=== PATIENT | female | born 1985 | race Caucasian/White ===

== ENCOUNTER 2019-09-02 17:19 | Emergency (ER) | payer OTHER, MEDICARE, SELFPAY ==
--- NOTE | ~2019-09-02 | XR_ITS ---
EXAMINATION: XR chest 2V EXAM DATE: 09/02/2019 17:54 INDICATION: Palpitations, history of atrial fibrillation. Syncope. Flu. Symptoms 1 week. TECHNIQUE: Frontal and lateral projections of the chest obtained and reviewed. Comparison is made to prior examination from 08/14/2017. FINDINGS: The lungs are clear. There are no pleural effusions. The cardiomediastinal silhouette is within normal limits. There is no pneumothorax suspected. The bones and soft tissues are unremarkab le. IMPRESSION: No acute cardiopulmonary findings. Reviewed, dictated and finalized at location A. INVESTIGATOR
--- NOTE | 2019-09-02 17:22 | ECG_ITS ---
Measurements Intervals [place] Rate: 94 P: 86 ND: 127 QRS: 53 QRSD: 81 T: 3 QT: 367 QTc: 459 Interpretive Statements SINUS RHYTHM EARLY PRECORDIAL R/S TRANSITION NONSPECIFIC ST & T-WAVE ABNORMALITY- DIFFUSE LEADS BASELINE ARTIFACT- I, II, III, AVR, AVL, AVF BORDERLINE ECG Electronically Signed On 09-03-2019 8:43:41 FLOATLIGHT LOADING SUPERVISOR by Chente Perez D.O.
[2019-09-02 17:32] VITALS: BP 130/94; PULSE 96; RESP 18; TEMP 37; O2SAT 100
[2019-09-02 17:48] LABS: Basophils Percent Auto 0.2 % (0.2-1.2); Eosinophils Absolute Auto 0.2 K/mm3 (0-0.3); Eosinophils Percent Auto 2.5 % (0-4.4); Hematocrit 37.1 % (37.0-47.0); Hemoglobin 11.2 g/dL (12.0-15.0); Immature Granulocyte Absolute 0.03 K/mm3 (0.00-0.031); Immature Granulocyte Percent A 0.3 % (0-0.5); Immature Platelet Fraction Pct 3.5 % (0.9-11.2); Lymphocytes Absolute Auto 1.67 K/mm3 (0.9-3.2); Lymphocytes Percent Auto 17.8 % (18.3-44.2); Mean Corpuscular HGB Conc 30.2 g/dl (32-36); Mean Corpuscular Volume 59.6 fl (80-100); Monocytes Absolute Auto 0.5 K/mm3 (0.1-0.6); Monocytes Percent Auto 5.3 % (2.6-8.5); Neutrophils Absolute Auto 6.9 K/mm3 (1.3-6.7); Neutrophils Percent Auto 73.9 % (45.5-73.1); Platelet Count Result 313 k/mm3 (150-375); Red Blood Count 6.22 M/mm3 (4.2-5.4); Red Cell Distribution Width 17.7 % (11.5-14.5); White Blood Count 9.4 K/mm3 (4.5-10.0)
[2019-09-02 18:01] LABS: Alanine Aminotransferase 18 U/L (4-35); Albumin Level 5.3 g/dL (3.5-5.1); Alkaline Phosphatase 56 U/L (38-126); Aspartate Amino Transferase 24 U/L (14-36); Bilirubin,Total 0.6 mg/dL (0.2-1.3); Blood Urea Nitrogen 8 mg/dL (7-17); Calcium 10.1 mg/dL (8.4-10.2); Carbon Dioxide 27 mmol/L (22-30); Chloride 100 mmol/L (98-107); Estimated CRCL calculation 83 ml/min; Estimated Glomerular Filt Rate > 60; Glucose 102 mg/dL (65-105); Potassium 3.4 mmol/L (3.4-5.0); Sodium 142 mmol/L (137-145)
[2019-09-02 20:08] VITALS: BP 130/88; PULSE 88; RESP 18; O2SAT 100
--- NOTE | 2019-09-02 20:27 | ED.WEAKNESS ---
HPI - Weakness General Chief complaint: Weakness Stated complaint: right breast infection Time Seen by Provider: 09/02/19 20:06 Source: patient and RN notes reviewed Mode of arrival: ambulatory Limitations: no limitations History of Present Illness HPI Narrative: Pt is a 33 y/o female presenting to the ED c/o rash. Pt reports she has developed several areas of erythema over her rt breast, buttocks, BLE, and abdomen. diagnosed with influenza B 11 days ago, 7 days of fever not gotten better frequently gets folliculitis after getting in a hot tub, got in one a few days ago erythema over breast, buttocks, and legs no CP near-syncope when cough Hx of A Fib and PE Related Data Allergies Allergy/AdvReac Type Severity Reaction Status Date / Time nitrofurantoin Allergy Intermediate Anaphylactic Verified 08/14/17 16:42 Shock ciprofloxacin Allergy Unknown HIVES/DIFFICULTY Verified 03/10/16 08:07 BREATHING ketorolac AdvReac Intermediate Dizziness Unverified 08/14/17 17:08 [facility] Social History Social History Gender identity (if verbalized by the patient): Female Course Vital Signs Vital signs: Vital Signs Temperature 37.0 C 09/02/19 17:32 Pulse Rate 96 09/02/19 17:32 Respiratory Rate 18 09/02/19 17:32 Blood Pressure 130/94 H 09/02/19 17:32 Pulse Oximetry 100 09/02/19 17:32 Temperature 37.0 C 09/02/19 17:32 Pulse Rate 88 09/02/19 20:08 Respiratory Rate 18 09/02/19 20:08 Blood Pressure 130/88 09/02/19 20:08 Pulse Oximetry 100 09/02/19 20:08 MDM - Weakness Lab Data Result diagrams: 09/02/19 17:40 09/02/19 17:40 Labs: Lab Results 09/02/19 09/02/19 Range/Units 17:40 17:40 WBC 9.4 (4.5-10.0) K/mm3 RBC 6.22 H (4.2-5.4) M/mm3 Hgb 11.2 L (12.0-15.0) g/dL Hct 37.1 (37.0-47.0) % MCV 59.6 L (80-100) fl MCH 18.0 L (26-34) pg MCHC 30.2 L (32-36) g/dl RDW 17.7 H (11.5-14.5) % Plt Count 313 (150-375) k/mm3 MPV TNP Immature Gran % (Auto) 0.3 (0-0.5) % Neut % (Auto) 73.9 H (45.5-73.1) % Lymph % (Auto) 17.8 L (18.3-44.2) % [place] % (Auto) 5.3 (2.6-8.5) % Eos % (Auto) 2.5 (0-4.4) % Baso % (Auto) 0.2 (0.2-1.2) % Lymph # (Auto) 1.67 (0.9-3.2) K/mm3 [place] # (Auto) 0.5 (0.1-0.6) K/mm3 Eos # (Auto) 0.2 (0-0.3) K/mm3 Baso # (Auto) 0.0 (0.0-0.1) K/mm3 Abs Immat Gran (auto) 0.03 (0.00-0.031) K/mm3 Absolute Neuts (auto) 6.9 H (1.3-6.7) K/mm3 Absolute Nucleated RBC 0.0 (0.0-0.012) K/mm3 Nucleated RBC % 0.0 (0.0-0.2) % % Immature Plt Fraction 3.5 (0.9-11.2) % Sodium 142 (137-145) mmol/L Potassium 3.4 (3.4-5.0) mmol/L Chloride 100 (98-107) mmol/L Carbon Dioxide 27 (22-30) mmol/L BUN 8 (7-17) mg/dL Creatinine 0.70 (0.7-1.0) mg/dL Estim Creat Clear Calc 83 ml/min Estimated GFR > 60 (59 - ) Glucose 102 (65-105) mg/dL Calcium 10.1 (8.4-10.2) mg/dL Total Bilirubin 0.6 (0.2-1.3) mg/dL AST 24 (14-36) U/L ALT 18 (4-35) U/L Alkaline Phosphatase 56 (38-126) U/L Total Protein 9.0 H (6.3-8.2) g/dL Albumin 5.3 H (3.5-5.1) g/dL Influenza A Screen Negative Reference Range: Negative Influenza B Screen Negative Reference Range: Negative
--- NOTE | 2019-09-02 20:50 | ED.SKABFB ---
HPI - Skin/Abscess/Foreign Bdy General Chief complaint: Weakness Stated complaint: right breast infection Time Seen by Provider: 09/02/19 20:06 Source: patient and RN notes reviewed Mode of arrival: ambulatory Limitations: no limitations History of Present Illness HPI narrative: Pt is a 33 y/o female presenting to the ED c/o rash. Pt reports she has developed several areas of erythema over her rt breast, buttocks, BLE, and abdomen. Pt states she was in a hot tub a few days ago and notes she has frequently developed Folliculitis after being in hot tubs previously. Pt also notes she was diagnosed with Influenza B 11 days ago that has not alleviated. Pt reports a subjective fever for 7 days, weakness, near-syncope, and cough, but denies CP. Pt states she has Hx's of A Fib and PE. Onset (ago): unknown Location: chest (Rt breast), buttocks, LLE and RLE Associated symptoms: fever (Subjective), cough and other (Weakness; near-syncope) Related Data Allergies Allergy/AdvReac Type Severity Reaction Status Date / Time nitrofurantoin Allergy Intermediate Anaphylactic Verified 08/14/17 16:42 Shock ciprofloxacin Allergy Unknown HIVES/DIFFICULTY Verified 03/10/16 08:07 BREATHING ketorolac AdvReac Intermediate Dizziness Unverified 08/14/17 17:08 Review of Systems Review of Systems: All systems reviewed & are unremarkable except as noted in HPI and below Constitutional: Constitutional: Reports fever(s) (Subjective) Cardiovascular: Cardiovascular: Denies chest pain Respiratory: Respiratory: Reports cough Integumentary/Breasts: Skin/Breast: Reports erythema (Rt breast; buttocks; BLE; Abdomen) Neurologic: Reports syncope (Near) and Reports weakness PMFSH Past Medical History Medical History A-fib Anemia CAD (coronary artery disease) Pulmonary embolism Syndrome X, cardiac Thalassemia UTI (urinary tract infection) Wrist fracture, right Surgical History Surgical History H/O cardiac radiofrequency ablation Social History Social History Smoking status: Unknown if ever smoked Gender identity (if verbalized by the patient): Female Exam Narrative: Exam Narrative: GENERAL: Well-appearing, well-nourished, and in no acute distress. HEAD: Normocephalic, atraumatic. EYES: PERRLA and EOMI. ENT: Nares clear, Mucous membranes moist. NECK: Supple. CHEST: Clear to auscultation. No respiratory distress. HEART: Regular rate and rhythm. No murmur heard. Normal peripheral pulses. ABDOMEN: Soft, non tender, nondistended, normal active bowel sounds. EXTREMITIES: Normal range of motion. No edema. SKIN: Warm, has diffuse erythematous rash and around the rt breast. NEURO: No focal deficits. Alert and oriented x3. PSYCH: Normal mood and affect. Course Course Emergency Course: infprmed pt about her lab work, will start on antibiotic .advised her to follow with her PMD. Vital Signs Vital signs: Vital Signs Temperature 37.0 C 09/02/19 17:32 Pulse Rate 96 09/02/19 17:32 Respiratory Rate 18 09/02/19 17:32 Blood Pressure 130/94 H 09/02/19 17:32 Pulse Oximetry 100 09/02/19 17:32 Temperature 37.0 C 09/02/19 17:32 Pulse Rate 88 09/02/19 20:08 Respiratory Rate 18 09/02/19 20:08 Blood Pressure 130/88 09/02/19 20:08 Pulse Oximetry 100 09/02/19 20:08 MDM - Skin/Abscess/Foreign Bdy Lab Data Result diagrams: 09/02/19 17:40 09/02/19 17:40 Labs: Lab Results 09/02/19 09/02/19 Range/Units 17:40 17:40 WBC 9.4 (4.5-10.0) K/mm3 RBC 6.22 H (4.2-5.4) M/mm3 Hgb 11.2 L (12.0-15.0) g/dL Hct 37.1 (37.0-47.0) % MCV 59.6 L (80-100) fl MCH 18.0 L (26-34) pg MCHC 30.2 L (32-36) g/dl RDW 17.7 H (11.5-14.5) % Plt Count 313 (150-375) k/mm3 MPV TNP Immature Gran % (Auto) 0.3 (0-0.5) % Neut % (Auto) 73.9 H
[2019-09-02 21:53] VITALS: BP 125/80; PULSE 76; RESP 14; O2SAT 100
== END 2019-09-02 21:57 | disposition home or self-care (01) ==
PROVIDERS: Emergency Medicine; Emergency Provider Family Medicine
DX: L73.9 Follicular disorder, unspecified (principal); I48.91 Unspecified atrial fibrillation; D64.9 Anemia, unspecified; Z86.711 Personal history of pulmonary embolism; Z87.440 Personal history of urinary (tract) infections; D56.9 Thalassemia, unspecified; I25.119 Atherosclerotic heart disease of native coronary artery with unspecified angina pectoris
CPT/HCPCS: 36415; 71046; 80053; 85025; 85055; 87804; 93005; 99283

== ENCOUNTER → 2020-04-12 15:31 | Outpatient (CLI) | payer OTHER, MEDICARE, SELFPAY ==
--- NOTE | ~2020-04-12 | US_ITS ---
EXAMINATION: US thyroid DATE: 04/12/2020 16:14 INDICATION: Left thyroid nodule TECHNIQUE: Multiple ultrasound images of the thyroid were obtained. COMPARISON: None. FINDINGS: The right thyroid lobe measures 4.2 x 1.3 x 1.3 cm. The left thyroid lobe measures 5.1 x 1.3 x 1.6 c m. 1.7 cm wider than tall mixed solid and cystic nodule with smooth margins, isoechoic solid compone nt without echogenic foci. (TI-RADS 2, not suspicious, no FNA recommended) at the inferior left thyro id. There is a second 4 mm wider than tall cystic nodule (TI-RADS 1, benign, no FNA recommended) in t he inferior right thyroid lobe. There is normal echotexture, echogenicity and vascular flow throughou t the thyroid gland. IMPRESSION: 1. A couple likely benign bilateral thyroid nodules the larger and higher grade a 1.7 cm TI RADS 2 no dule which requires no biopsy or further follow-up. Reviewed, dictated and finalized at location B. IMPRESSION: 1. A couple likely benign bilateral thyroid nodules the larger and higher grade a 1.7 cm TI RADS 2 nodule which requires no biopsy or further follow-up.
--- NOTE | ~2020-04-12 | US_ITS ---
EXAMINATION: US transvaginal EXAM DATE: 04/12/2020 16:14 INDICATION: Hydrosalpinx. TECHNIQUE: Pelvic transvaginal sonogram was performed. There are multiple grayscale and Doppler imag es available for interpretation. There is no prior study for comparison. FINDINGS: Uterus measures 7.7 x 3.8 x 5.9 cm, is retroverted and morphologically normal. Endometria l stripe measures 11 mm, within normal limits. There is small free pelvic fluid. Right adnexa: The ovary measures 5.3 x 1.9 x 2.1 cm and is morphologically normal. Ovarian vascular f low confirmed. Left adnexa: The ovary measures 3.6 x 1.6 x 1.4 cm and is morphologically normal. Ovarian vascular fl ow confirmed. Again there is serpiginous fluid filled region in the left adnexa most likely mild hydr osalpinx. IMPRESSION: 1. Persistent dilated fluid-filled left adnexal region area probably mild hydrosalpinx. Reviewed, dictated and finalized at location A. IMPRESSION: 1. Persistent dilated fluid-filled left adnexal region area probably mild hydr osalpinx.
== END ==
PROVIDERS: Visit Provider Nurse Practitioner
DX: N70.11 Chronic salpingitis (principal); E04.2 Nontoxic multinodular goiter
CPT/HCPCS: 76536; 76830

== ENCOUNTER → 2020-07-17 11:04 | Outpatient (CLI) | payer OTHER, MEDICARE, SELFPAY ==
--- NOTE | ~2020-07-17 | XR_ITS ---
EXAMINATION: XR foot RT min 3V DATE: 07/17/2020 11:39 INDICATION: Possible fracture with lateral right foot pain and bruising post injury TECHNIQUE: Dorsoplantar, two oblique and lateral views of the right foot were obtained. COMPARISON: None. FINDINGS: Alignment is normal. No fracture. Joint spaces are normal. Minimal enthesopathic ossification at the distal Achilles tendon. Soft tissues are unremarkable. IMPRESSION: 1. No acute osseous abnormality. Reviewed, dictated and finalized at location A. LAINT COORDINATOR
== END ==
PROVIDERS: PCP General Practice; Visit Provider General Practice
DX: M79.671 Pain in right foot (principal)
CPT/HCPCS: 73630

== ENCOUNTER → 2021-05-07 10:27 | Outpatient (CLI) | payer OTHER, MEDICARE, SELFPAY ==
--- NOTE | ~2021-05-07 | US_ITS ---
EXAMINATION: US transvaginal DATE: 05/07/2021 11:28 INDICATION: Hydrosalpinx Comparison:Ultrasound dated 04/12/2020 TECHNIQUE: Multiple endovaginal sonographic images of the pelvis performed. FINDINGS: The uterus measures 7.5 x 3.5 x 6 cm. Uterus is retroverted. There is an IUD in the endomet rium. The endometrial complex measures 5 mm. The right ovary measures 2.9 x 1.7 x 3.1 cm and the left ovary measures 3.5 x 1.4 x 2.8 cm. There ar e small follicles in each ovary. Normal doppler signal in both ovaries. There is persistent septated fluid in the left adnexa, nonspecific. This has a similar appearance com pared with prior examination. This may represent insinuated bowel or hydrosalpinx or a complicated fr ee fluid. There are no abnormal masses seen on either side. IMPRESSION: 1. Persistent septated fluid in the left adnexa, nonspecific. This has a similar appearance compared with prior examination. This may represent insinuated bowel, hydrosalpinx or a complicated free fluid . Consider correlation with contrast-enhanced CT. Reviewed, dictated and finalized at location A. ANALYTICS DEVELOPER IMPRESSION: 1. Persistent septated fluid in the left adnexa, nonspecific. This has a simila r appearance compared with prior examination. This may represent insinuated bow el, hydrosalpinx or a complicated free fluid. Consider correlation with contras t-enhanced CT.
--- NOTE | ~2021-05-07 | US_ITS ---
EXAMINATION: US thyroid EXAM DATE: 05/07/2021 11:28 INDICATION: Thyroid nodule. TECHNIQUE: Multiple grayscale and Doppler images of the thyroid were obtained (by a technologist who performed the scan) and subsequently reviewed. Individual nodules and recommendations may be reporte d in accordance with TI-RADS system as designated by the 2017 ACR White Paper TI-RADS committee. Comp tyler is made to prior examination from 04/12/2020. FINDINGS: Right there are lobe measures 4.5 x 1.2 x 1.5 cm, the left measuring 4.4 x 1.1 x 1.4 cm. There is mil dly diffusely heterogeneous thyroid parenchymal echogenicity, also with mild hypervascularity. Dimens ions are within normal size limits. There are scattered subcentimeter nodules, largest in the left thyroid lobe measuring 8 x 6 x 9 mm, s olid (2 points), hypoechoic (2 points), wider than tall, smooth well defined margin, without echogeni c foci, category TR4 for this nodule. No further follow-up is indicated at this time for a nodule of this size. Additionally, compared to prior study it has significantly decreased, probably with loss o f its previously seen cystic component (prior largest dimension was 1.7 cm). IMPRESSION: Benign thyroid nodules; return to clinical follow-up and if additional palpable abnormali ty develops a repeat ultrasound can be obtained. Reviewed, dictated and finalized at location A. TURE WINDER AUTOMOTIVE IMPRESSION: Benign thyroid nodules; return to clinical follow-up and if additio nal palpable abnormality develops a repeat ultrasound can be obtained.
== END ==
PROVIDERS: Visit Provider Nurse Practitioner
DX: E04.1 Nontoxic single thyroid nodule (principal)
CPT/HCPCS: 76536; 76830

== ENCOUNTER → 2021-08-12 15:33 | Outpatient (REF) | payer MEDICARE, MEDICAID, SELFPAY | LOC: ANHLAB 15:33 | PROVIDERS: PCP Student in an Organized Health Care Education/Training Program; Visit Provider Nurse Practitioner | DX: D22.72 Melanocytic nevi of left lower limb, including hip (principal) | CPT/HCPCS: 88305 ==

== ENCOUNTER 2022-03-04 12:58 | Emergency (ER) | payer MEDICARE, MEDICAID, SELFPAY ==
[2022-03-04 13:05] VITALS: BP 120/76; PULSE 101; RESP 12; TEMP 36.4; O2SAT 100
--- NOTE | 2022-03-04 13:28 | ED.SKABFB ---
HPI - Skin/Abscess/Foreign Bdy General Chief complaint: Skin/Abscess/Foreign Body Stated complaint: insect bite Time Seen by Provider: 03/04/22 13:28 Source: patient Mode of arrival: ambulatory Limitations: no limitations History of Present Illness HPI narrative: 36-year-old female presented for complaint of left posterior upper leg infection after mosquito bite 6 days ago. At the onset she endorses scratching it, did not states she noticed redness, swelling, and pus draining. She applied alcohol and mupirocin ointment due to her history of folliculitis. She states it continues to become more red and painful. Also reports complaints of sinus congestion and drainage over the last 4 days. She states her children have been sick. She has a history of cardiac arrhythmias and cannot tolerate Mucinex which she tried the other day. She denies shortness of breath, wheezing, vomiting, fevers or chills. Related Data Home Medications Medication Instructions Recorded Confirmed aspirin 81 mg tablet,delayed 81 mg PO DAILY 07/23/21 03/04/22 release (Adult Aspirin Regimen) fludrocortisone 0.1 mg tablet 0.1 mg PO DAILY 07/23/21 03/04/22 nitroglycerin 0.3 mg sublingual 0.3 mg sublingual Q5M PRN Chest 07/23/21 03/04/22 tablet Pain propafenone 325 mg 325 mg PO Q12H 07/23/21 03/04/22 capsule,extended release 12 hr (Rythmol SR) cyclobenzaprine 5 mg tablet 5 mg PO DAILY PRN muscle relaxer 03/04/22 03/04/22 phenazopyridine 100 mg tablet 100 mg PO TID PRN bladder 03/04/22 03/04/22 (Pyridium) discomfort Allergies Allergy/AdvReac Type Severity Reaction Status Date / Time nitrofurantoin Allergy Intermediate Anaphylactic Verified 03/04/22 13:06 Shock ciprofloxacin Allergy Unknown HIVES/DIFFICULTY Verified 03/04/22 13:06 BREATHING ketorolac AdvReac Intermediate Dizziness Verified 03/04/22 13:06 Review of Systems Review of Systems: CONSTITUTIONAL: Denies body aches, fever, chills, or sweats. EYES: Denies visual changes, redness, or discharge. ENT: reports rhinorrhea, congestion CARDIOVASCULAR: Denies chest pain, palpitations, or edema. RESPIRATORY: Denies dyspnea. GASTROINTESTINAL: Denies abdominal pain, nausea, vomiting, or diarrhea. SKIN: reports redness and drainage from insect bite MUSCULOSKELETAL: Denies back pain, joint pain, or myalgia. NEUROLOGIC: Denies headache, numbness, tingling, or weakness. [facility] Past Medical History Medical History (Updated 03/04/22 @ 13:39 by Estefany Molina APRN) A-fib Anemia CAD (coronary artery disease) Pulmonary embolism Syndrome X, cardiac Thalassemia UTI (urinary tract infection) Wrist fracture, right Surgical History Surgical History H/O cardiac radiofrequency ablation Social History Social History Smoking status: Never smoker Gender identity (if verbalized by the patient): Female Comments At time of signature, I have reviewed and agree with nursing past medical, surgical, social and family history unless otherwise noted. Please see nursing chart for further information. There is no relevant family history pertinent to the presenting complaint Exam Narrative: GENERAL: Well-appearing HEAD: Normocephalic, atraumatic. EYES: conjunctivae clear, and EOMI. ENT: Mucous membranes moist. Oropharynx without edema, erythema or lesions. CHEST: Clear to auscultation. HEART: Regular rate and rhythm. SKIN: Warm, dry. Left hamstring induration of approximately 5 cm diameter with open center, no active drainage, site is tender and firm NEURO: Alert and oriented x3. Course Course Emergency Course: Patient is aware of diagnosis, understands and agrees to treatment plan. Anticipatory guidance given. Patient agrees to follow-up as directed and is aware of reasons to seek care at the emergency department. Portions of this record may have been cr
== END 2022-03-04 13:44 | disposition home or self-care (01) ==
PROVIDERS: Emergency Provider Nurse Practitioner Family; PCP Student in an Organized Health Care Education/Training Program
DX: L02.416 Cutaneous abscess of left lower limb (principal); J30.9 Allergic rhinitis, unspecified; I48.91 Unspecified atrial fibrillation; Z86.711 Personal history of pulmonary embolism; Z79.82 Long term (current) use of aspirin; D56.9 Thalassemia, unspecified; D64.9 Anemia, unspecified; I25.110 Atherosclerotic heart disease of native coronary artery with unstable angina pectoris
CPT/HCPCS: 99213; G0463

== ENCOUNTER 2022-03-05 17:56 | Emergency (ER) | payer MEDICARE, MEDICAID, SELFPAY ==
[2022-03-05 18:05] VITALS: BP 139/93; PULSE 104; RESP 16; TEMP 37.2; O2SAT 100
--- NOTE | 2022-03-05 18:05 | ED.SKABFB ---
HPI - Skin/Abscess/Foreign Bdy General Chief complaint: Skin/Abscess/Foreign Body Stated complaint: INSECT BITE Time Seen by Provider: 03/05/22 18:07 Source: patient and RN notes reviewed Mode of arrival: ambulatory Limitations: no limitations History of Present Illness HPI narrative: 36-year-old female presents to the [facility] with complaints of worsening possible spider bite to the left posterior leg. Was seen yesterday, started on Keflex. Related Data Home Medications Medication Instructions Recorded Confirmed aspirin 81 mg tablet,delayed 81 mg PO DAILY 07/23/21 03/05/22 release (Adult Aspirin Regimen) fludrocortisone 0.1 mg tablet 0.1 mg PO DAILY 07/23/21 03/05/22 nitroglycerin 0.3 mg sublingual 0.3 mg sublingual Q5M PRN Chest 07/23/21 03/05/22 tablet Pain propafenone 325 mg 325 mg PO Q12H 07/23/21 03/05/22 capsule,extended release 12 hr (Rythmol SR) cyclobenzaprine 5 mg tablet 5 mg PO DAILY PRN muscle relaxer 03/04/22 03/05/22 Allergies Allergy/AdvReac Type Severity Reaction Status Date / Time nitrofurantoin Allergy Intermediate Anaphylactic Verified 03/05/22 18:08 Shock ciprofloxacin Allergy Unknown HIVES/DIFFICULTY Verified 03/05/22 18:08 BREATHING ketorolac AdvReac Intermediate Dizziness Verified 03/05/22 18:08 Review of Systems Review of Systems: All systems reviewed & are unremarkable except as noted in HPI and below Constitutional: Constitutional: Reports no additional constitutional complaints, Denies chills and Denies fever(s) Eyes: Eyes: Reports no additional eye complaints ENT: Reports system reviewed and no additional complaints, except as documented Cardiovascular: Cardiovascular: Reports no additional cardiovascular complaints Respiratory: Respiratory: Reports no additional respiratory complaints Gastrointestinal: Gastrointestinal: Reports no additional gastrointestinal complaints Musculoskeletal: Musculoskeletal: Reports no additional musculoskeletal complaints Integumentary/Breasts: Skin/Breast: Reports system reviewed and no additional complaints, except as docu Neurologic: Reports system reviewed and no additional complaints, except as documented Psychiatric: Psychiatric: Reports no additional psychiatric complaints Allergic/Immunologic: Allergic/Immunologic: Reports no additional allergic/immunologic complaints PMFSH Past Medical History Medical History (Updated 03/05/22 @ 20:17 by Rylie Bhatti APRN) A-fib Anemia CAD (coronary artery disease) Pulmonary embolism Syndrome X, cardiac Thalassemia UTI (urinary tract infection) Wrist fracture, right Surgical History Surgical History H/O cardiac radiofrequency ablation Social History Social History Smoking status: Never smoker Gender identity (if verbalized by the patient): Female Comments At the time of my signature, I reviewed and agree with the nursing past medical, surgical, social, and family history. There is no relevant family history pertinent to the patient complaint. Exam Const: General: healthy appearing, no acute distress and alert Nutritional Appearance: well nourished Orientation/consciousness: patient oriented x3 Limitations: no limitations HENMT: Head: normal to inspection Ears: external ears normal Eyes: General: appearance normal, both eyes and all related structures Pupils: Equal, round and reactive pupils present Neck: Neck: normal visual inspection, no lymphadenopathy and no meningeal signs Chest: Chest palpation & inspection: normal inspection of the chest Resp: Effort & Inspection: normal respiratory effort and no use of accessory muscles Auscultation: clear to auscultation bilaterally, no crackles, no rales, no rhonchi and no wheezes Cardio: Rate: regular rate Rhythm: regular rhythm GI: GI Palp: Yes Soft to palpation and No Tenderness to pa
[2022-03-05] MEDS: LIDOCAINE HCL 1% LOCAL INJ 2 ML AMPUL 10 ML INFILTRATE (18:28)
== END 2022-03-05 18:50 | disposition home or self-care (01) ==
PROVIDERS: Emergency Provider Nurse Practitioner
DX: L03.116 Cellulitis of left lower limb (principal); L02.416 Cutaneous abscess of left lower limb; I48.91 Unspecified atrial fibrillation; I25.10 Atherosclerotic heart disease of native coronary artery without angina pectoris; R01.1 Cardiac murmur, unspecified; D56.9 Thalassemia, unspecified; Z79.82 Long term (current) use of aspirin
CPT/HCPCS: 10060; 87070; 87075; 87147; 87181; 87186; 87205; 99213; G0463

== ENCOUNTER 2022-07-13 13:08 | Emergency (ER) | payer MEDICARE, MEDICAID, SELFPAY ==
--- NOTE | ~2022-07-13 | CT_ITS ---
EXAMINATION: CT brain wo con DATE: 07/13/2022 13:49 INDICATION: Syncope. Dizziness, lightheadedness. TECHNIQUE: Computed tomography (CT) of the head was performed without intravenous contrast. The mA wa s adjusted according to patient size. Iterative reconstruction technique was employed. Exam dose: 52 9.67 mGy-cm total exam DLP. COMPARISON: None FINDINGS: No intracranial mass lesion or hemorrhage or cerebrovascular accident. No midline shift or mass effect. Normal ventricular size. Normal flanagan-white matter differentiation. There is a small fluid level in the right maxillary sinus. There is soft tissue thickening of the rig ht ethmoid air cells. The mastoid air cells are normally developed and aerated. No fracture or bone destruction of the cranial vault. IMPRESSION: No intracranial abnormality Small fluid level, right maxillary sinus and soft tissue thickening of the right ethmoid air cells Reviewed, dictated and finalized at [facility]. Reviewed, dictated and finalized at location A. RANGER OPERATOR IMPRESSION: No intracranial abnormality Small fluid level, right maxillary sinus and soft tissue thickening of the righ t ethmoid air cells
--- NOTE | ~2022-07-13 | XR_ITS ---
XR chest 1V DATE: 07/13/2022 13:51 INDICATION: Chest pain radiating to left jaw. Syncopal episodes. TECHNIQUE: AP chest COMPARISON: 09/02/2019 PA and lateral chest FINDINGS: Normal heart size. No hilar or mediastinal enlargement. No pulmonary infiltrate or consolid ation, pleural effusion or pulmonary vascular congestion or pneumothorax. IMPRESSION: No active cardiopulmonary disease Reviewed, dictated and finalized at location A. CAL GLASS INSPECTOR
--- NOTE | 2022-07-13 13:21 | ECG_ITS ---
Measurements Intervals [place] Rate: 90 P: 76 [place]: 149 QRS: 47 QRSD: 65 T: 22 QT: 352 QTc: 432 Interpretive Statements SINUS RHYTHM BORDERLINE ST-T WAVE ABNORMALITY- DIFFUSE LEADS BASELINE ARTIFACT- I, II, III, AVR, AVL, AVF, V3-V6 BORDERLINE ECG COMPARED TO ECG 09/02/2019 17:31:24 NO SIGNIFICANT CHANGES Electronically Signed On 07-13-2022 14:05:58 FIBERGLASS BOAT FINISHER by Chente Perez D.O.
--- NOTE | 2022-07-13 13:24 | ED.SYNCOPE ---
HPI - Syncope General Chief Complaint: Syncope Stated Complaint: syncopal episode Time Seen by Provider: 07/13/22 13:12 Source: patient and RN notes reviewed Mode of arrival: ambulatory Limitations: no limitations History of Present Illness HPI narrative: This is a 36 year old female with history of cardiac x syndrome, POTS, atrial fibrillation, and PE who presents for evaluation of a syncopal episode. Patient states she has been ill with URI symptoms since Thursday. She has nasal congestion, and bilateral ear pain . She was started on antibiotics by her PCP on Thursday for her symptoms. She is also taking decongestants and antihistamines for her symptoms. Yesterday she reports continuing to feel unwell. She reports feeling of shortness of breath when sleeping at night. Today she was having some midsternal chest pain so she took one of her SL nitroglycerin. She reports chest pressure mostly when she lays flat. She was walking afterwards and felt like she was going to pass out. She reports her legs buckled and caused her to fall to her knees. She states she woke up on the ground. She denies headache, vomiting, or diarrhea. She states she has been drinking plenty of fluid but she has not been eating. She does not thinks she was in atrial fibrillation. Witnessed: No Related Data Home Medications Medication Instructions Recorded Confirmed aspirin 81 mg tablet,delayed 81 mg PO DAILY 07/23/21 03/05/22 release (Adult Aspirin Regimen) fludrocortisone 0.1 mg tablet 0.1 mg PO DAILY 07/23/21 03/05/22 nitroglycerin 0.3 mg sublingual 0.3 mg sublingual Q5M PRN Chest 07/23/21 03/05/22 tablet Pain propafenone 325 mg 325 mg PO Q12H 07/23/21 03/05/22 capsule,extended release 12 hr (Rythmol SR) cyclobenzaprine 5 mg tablet 5 mg PO DAILY PRN muscle relaxer 03/04/22 03/05/22 Allergies Allergy/AdvReac Type Severity Reaction Status Date / Time nitrofurantoin Allergy Intermediate Anaphylactic Verified 03/05/22 18:08 Shock ciprofloxacin Allergy Unknown HIVES/DIFFICULTY Verified 03/05/22 18:08 BREATHING ketorolac AdvReac Intermediate Dizziness Verified 03/05/22 18:08 Review of Systems Review of Systems: All systems reviewed & are unremarkable except as noted in HPI and below Constitutional: Constitutional: Reports fatigue and Reports weakness ENT: Reports nasal congestion Cardiovascular: Cardiovascular: Reports chest pain, Denies syncope, Denies rapid heart rate, Denies irregular heart rhythm, Denies leg edema and Reports dyspnea Respiratory: Respiratory: Denies chest congestion, Denies hemoptysis, Denies excessive phlegm production and Reports dyspnea Gastrointestinal: Gastrointestinal: Denies abdominal pain, Denies hematochezia, Denies diarrhea and Denies vomiting Genitourinary: Genitourinary: Denies hematuria and Denies dysuria Musculoskeletal: Musculoskeletal: Denies joint swelling, Denies loss of height and Denies muscle weakness Neurologic: Reports syncope, Denies focal weakness and Denies weakness [facility] Past Medical History Medical History (Updated 07/13/22 @ 18:42 by Alba Monique MD) A-fib Anemia CAD (coronary artery disease) Pulmonary embolism Syndrome X, cardiac Thalassemia UTI (urinary tract infection) Wrist fracture, right Surgical History Surgical History H/O cardiac radiofrequency ablation Social History Social History Smoking status: Never smoker Gender identity (if verbalized by the patient): Female Exam Const: General: alert Nutritional Appearance: thin Orientation/consciousness: patient oriented x3 HENMT: Head: normal to inspection Ears: external ears normal and TM's normal bilaterally Face and sinus: normal facial exam and sinuses nontender Mouth: Yes Normal oral and palatal mucosa present, Yes lip normal and Yes moist mucous membranes Throat: posterior oroph
[2022-07-13 13:33] VITALS: BP 139/87; PULSE 93; RESP 18; O2SAT 99
[2022-07-13 13:46] LABS: Basophils Percent Auto 0.4 % (0.2-1.2); Eosinophils Absolute Auto 0.1 K/mm3 (0-0.3); Hematocrit 35.4 % (37.0-47.0); Hemoglobin 11.1 g/dL (12.0-15.0); Immature Granulocyte Absolute 0.03 K/mm3 (0.00-0.031); Immature Granulocyte Percent A 0.4 % (0-0.5); Immature Platelet Fraction Pct 3.1 % (0.9-11.2); Lymphocytes Absolute Auto 1.87 K/mm3 (0.9-3.2); Lymphocytes Percent Auto 26.8 % (18.3-44.2); Mean Corpuscular HGB Conc 31.4 g/dl (32-36); Mean Corpuscular Hemoglobin 19.6 pg (26-34); Mean Corpuscular Volume 62.7 fl (80-100); Monocytes Absolute Auto 0.3 K/mm3 (0.1-0.6); Monocytes Percent Auto 4.4 % (2.6-8.5); Neutrophils Absolute Auto 4.6 K/mm3 (1.3-6.7); Platelet Count Result 334 k/mm3 (150-375); Red Blood Count 5.65 M/mm3 (4.2-5.4); Red Cell Distribution Width 16.9 % (11.5-14.5)
[2022-07-13 13:59] LABS: Anisocytosis 2+ (NORMAL); Hypochromasia 2+ (NORMAL); Microcytosis 1+ (NORMAL); Ovalocytes 1+ (NORMAL); Platelet Estimate Adequate (Adequate); Prothrombin Time 12.9 Seconds (11.1-14.7); Schistocytes None Seen (NORMAL)
[2022-07-13] MEDS: SODIUM CHLORIDE 0.9% IV 1,000 ML 999 ML IV CONT (13:59)
[2022-07-13 14:14] LABS: Alanine Aminotransferase 18 U/L (6-35); Albumin Level 5.5 g/dL (3.5-5.1); Alkaline Phosphatase 55 U/L (38-126); Anion Gap 10 mmol/L (8-16); Aspartate Amino Transferase 24 U/L (14-36); Bilirubin,Total 0.7 mg/dL (0.2-1.3); Blood Urea Nitrogen 13 mg/dL (7-17); Calcium 9.9 mg/dL (8.4-10.2); Carbon Dioxide 24 mmol/L (22-30); Chloride 102 mmol/L (98-107); Estimated Glomerular Filt Rate > 60; Glucose 102 mg/dL (65-110); Lipase 233 U/L (23-300); Potassium 3.7 mmol/L (3.4-5.0); Sodium 136 mmol/L (137-145)
[2022-07-13 14:15] LABS: Creatine Kinase 57 U/L (30-135); Magnesium 2.1 mg/dL (1.6-2.3)
[2022-07-13 14:19] LABS: Influenza A QL RT-PCR Negative (Negative); Influenza B QL RT-PCR Negative (Negative); SARS-CoV-2 RNA PCR Negative
[2022-07-13 14:21] LABS: NT Pro B Type Natriuretic Pept 76 pg/mL (19.9-100)
[2022-07-13 14:24] LABS: Troponin I < 0.012 ng/mL (0.000-0.034)
[2022-07-13 14:31] LABS: D Dimer < 0.27 ug/mL (<0.48)
[2022-07-13 14:35] VITALS: BP 122/82; PULSE 80
[2022-07-13 14:37] VITALS: BP 129/87; BP 129/91; PULSE 92; PULSE 96
[2022-07-13 15:30] VITALS: BP 117/78; PULSE 88; RESP 20; O2SAT 100
[2022-07-13 16:00] VITALS: BP 120/85; PULSE 86; RESP 15; O2SAT 98
[2022-07-13 16:30] VITALS: BP 117/80; PULSE 82; RESP 16; O2SAT 100
[2022-07-13 16:48] LABS: Troponin I < 0.012 ng/mL (0.000-0.034)
== END 2022-07-13 19:18 | disposition home or self-care (01) ==
PROVIDERS: Emergency Provider General Practice; PCP Student in an Organized Health Care Education/Training Program
DX: R55 Syncope and collapse (principal); J06.9 Acute upper respiratory infection, unspecified; Z20.822 Contact with and (suspected) exposure to COVID-19; I48.91 Unspecified atrial fibrillation; I25.118 Atherosclerotic heart disease of native coronary artery with other forms of angina pectoris; D64.9 Anemia, unspecified; G90.A Postural orthostatic tachycardia syndrome [POTS]; R06.02 Shortness of breath; Z87.440 Personal history of urinary (tract) infections; Z86.711 Personal history of pulmonary embolism; Z79.82 Long term (current) use of aspirin; R94.31 Abnormal electrocardiogram [ECG] [EKG]
CPT/HCPCS: 36415; 70450; 71045; 80053; 81025; 82550; 83690; 83735; 83880; 84484; 85025; 85055; 85380; 85610; 85730; 87636; 93005; 96361; 96365; 99284; J0131; J7030

== ENCOUNTER → 2022-08-20 11:07 | Outpatient (CLI) | payer MEDICARE, MEDICAID, SELFPAY ==
--- NOTE | ~2022-08-20 | US_ITS ---
EXAMINATION: US pelvic complete DATE: 08/20/2022 11:30 INDICATION: Pelvic and perineal pain Comparison:Ultrasound dated 05/07/2021 TECHNIQUE: Multiple transabdominal and endovaginal sonographic images of the pelvis performed. FINDINGS: The uterus measures 7.3 x 4.4 x 5 cm. There is an IUD present in the endometrium. The endom etrial complex measures 8 mm. The right ovary measures 3.1 x 1.5 x 3.5 cm and the left ovary measures 3.3 x 1.9 x 4.6 cm. There ar e small follicles in each ovary. Normal doppler signal in both ovaries. There is free fluid in the pelvis. There are no abnormal masses seen on either side. IMPRESSION: 1. Unremarkable pelvic ultrasound. Reviewed, dictated and finalized at location B. DYNAMICS ENGINEER
== END ==
PROVIDERS: PCP Student in an Organized Health Care Education/Training Program; Visit Provider Nurse Practitioner
DX: R10.2 Pelvic and perineal pain (principal)
CPT/HCPCS: 76856

== ENCOUNTER 2022-09-03 19:47 | Emergency (ER) | payer MEDICARE, MEDICAID, SELFPAY ==
--- NOTE | ~2022-09-03 | XR_ITS ---
EXAMINATION: XR chest 2V Exam Date/Time: 09/03/2022 20:22 MOBILE DEVICE ENGINEER HISTORY: cp CENTER OF CHEST 1 DAY, SOB, PT. STATES HX OF A-FIB Comparison: 07/13/2022. RESULT: Lines, tubes, and devices: None. Lungs and pleura: Clear. Cardiomediastinal silhouette: Stable. Other: No acute osseous or upper abdominal finding. IMPRESSION: No acute cardiopulmonary process. Reviewed, dictated and finalized at location K. LE DEVICE ENGINEER
--- NOTE | 2022-09-03 19:49 | ECG_ITS ---
Measurements Intervals [place] Rate: 89 P: 84 SC: 123 QRS: 64 QRSD: 78 T: 56 QT: 357 QTc: 435 Interpretive Statements SINUS RHYTHM NONSPECIFIC ST & T-WAVE ABNORMALITY- ANTEROLAT/INF LEADS BORDERLINE ECG COMPARED TO ECG 07/13/2022 13:36:46 NO SIGNIFICANT CHANGES Electronically Signed On 09-04-2022 6:34:54 DATA SME by Chente Perez D.O.
[2022-09-03 19:56] VITALS: BP 135/87; PULSE 90; RESP 18; O2SAT 100
[2022-09-03 20:14] LABS: Hematocrit 35.6 % (37.0-47.0); Immature Platelet Fraction Pct 3.9 % (0.9-11.2); Mean Corpuscular HGB Conc 30.9 g/dl (32-36); Mean Corpuscular Hemoglobin 19.6 pg (26-34); Mean Corpuscular Volume 63.6 fl (80-100); Platelet Count Result 303 k/mm3 (150-375); Red Cell Distribution Width 15.2 % (11.5-14.5); White Blood Count 6.8 K/mm3 (4.5-10.0)
[2022-09-03 20:23] LABS: Prothrombin Time 13.1 Seconds (11.1-14.7)
[2022-09-03 20:24] LABS: Partial Thromboplastin Time 28.1 SECONDS (22.3-36.8)
[2022-09-03 20:26] LABS: Alanine Aminotransferase 16 U/L (6-35); Albumin Level 4.9 g/dL (3.5-5.1); Alkaline Phosphatase 49 U/L (38-126); Anion Gap 7 mmol/L (8-16); Aspartate Amino Transferase 23 U/L (14-36); Bilirubin,Total 0.6 mg/dL (0.2-1.3); Blood Urea Nitrogen 7 mg/dL (7-17); Calcium 9.4 mg/dL (8.4-10.2); Carbon Dioxide 27 mmol/L (22-30); Chloride 104 mmol/L (98-107); Estimated CRCL calculation 93 ml/min; Estimated Glomerular Filt Rate > 60; Glucose 118 mg/dL (65-110); Lipase 229 U/L (23-300); Potassium 3.6 mmol/L (3.4-5.0); Sodium 138 mmol/L (137-145)
[2022-09-03 20:38] LABS: Troponin I < 0.012 ng/mL (0.000-0.034)
[2022-09-03 20:55] LABS: Anisocytosis 2+ (NORMAL); Band Neutrophils Percent 5 % (0-6); Eosinophils Percent Manual 3 % (0-4); Giant Platelets Present; Lymphocytes Absolute Manual 2.65 K/mm3 (1.1-4.5); Metamyelocytes Percent 2 %; Microcytosis 2+ (NORMAL); Neutrophils Percent Manual 51 % (46-73); Nucleated Red Blood Cells 1 %; Platelet Estimate Adequate (Adequate)
[2022-09-03 20:56] LABS: Burr Cells 3+ (NORMAL); Hypochromasia 2+ (NORMAL); Ovalocytes 2+ (NORMAL); Poikilocytosis 3+ (NORMAL); Schistocytes 2+ (NORMAL); Tear Drop Cells 1+ (NORMAL)
[2022-09-03 20:57] LABS: Atypical Lymphocytes Present; Crenated RBC 1+ (NORMAL); Smudge Cells PRESENT
[2022-09-03 20:58] LABS: Acanthocytes 1+ (NORMAL); Total Cells Counted 100
--- NOTE | 2022-09-04 00:32 | PC.NURSE ---
called no answer
== END 2022-09-04 00:32 | disposition left against medical advice (07) ==
PROVIDERS: Emergency Provider Emergency Medicine; PCP Student in an Organized Health Care Education/Training Program
DX: R07.9 Chest pain, unspecified (principal)
CPT/HCPCS: 36415; 71046; 80053; 83690; 84484; 85025; 85055; 85610; 85730; 93005; 99199

== ENCOUNTER 2022-10-16 10:21 | Emergency (ER) | payer MEDICARE, MEDICAID, SELFPAY ==
--- NOTE | 2022-10-16 10:28 | ED.URI ---
HPI - URI/Sore Throat General Chief Complaint: Upper Respiratory Infection Stated Complaint: Sore Throat Time Seen by Provider: 10/16/22 10:33 Source: patient, RN notes reviewed and old records reviewed Mode of arrival: ambulatory Limitations: no limitations History of Present Illness HPI Narrative: 36-year-old female presents to the [facility] with complaints of a sore throat for couple a days. Currently on her valacyclovir patient states she is concerned either for strep or having herpes sore in her mouth. Related Data Home Medications Medication Instructions Recorded Confirmed aspirin 81 mg tablet,delayed 81 mg PO DAILY 07/23/21 03/05/22 release (Adult Aspirin Regimen) fludrocortisone 0.1 mg tablet 0.1 mg PO DAILY 07/23/21 03/05/22 nitroglycerin 0.3 mg sublingual 0.3 mg sublingual Q5M PRN Chest 07/23/21 03/05/22 tablet Pain propafenone 325 mg 325 mg PO Q12H 07/23/21 03/05/22 capsule,extended release 12 hr (Rythmol SR) cyclobenzaprine 5 mg tablet 5 mg PO DAILY PRN muscle relaxer 03/04/22 03/05/22 levonorgestrel 20.4 mcg/24 hrs (8 1 device intrauterine ONCE 10/16/22 10/16/22 yrs) 52 mg intrauterine device (Liletta) valacyclovir 500 mg tablet mg 10/16/22 Allergies Allergy/AdvReac Type Severity Reaction Status Date / Time nitrofurantoin Allergy Intermediate Anaphylactic Verified 03/05/22 18:08 Shock ciprofloxacin Allergy Unknown HIVES/DIFFICULTY Verified 03/05/22 18:08 BREATHING ketorolac AdvReac Intermediate Dizziness Verified 10/16/22 10:32 Review of Systems Review of Systems: All systems reviewed & are unremarkable except as noted in HPI and below Constitutional: Constitutional: Reports no additional constitutional complaints Eyes: Eyes: Reports no additional eye complaints ENT: Reports as per HPI Cardiovascular: Cardiovascular: Reports no additional cardiovascular complaints, Denies chest pain and Denies dyspnea Respiratory: Respiratory: Reports no additional respiratory complaints, Denies chest congestion, Denies cough and Denies dyspnea Gastrointestinal: Gastrointestinal: Reports no additional gastrointestinal complaints, Denies abdominal pain, Denies nausea and Denies vomiting Musculoskeletal: Musculoskeletal: Reports no additional musculoskeletal complaints Integumentary/Breasts: Skin/Breast: Reports system reviewed and no additional complaints, except as docu Neurologic: Reports system reviewed and no additional complaints, except as documented Psychiatric: Psychiatric: Reports no additional psychiatric complaints Allergic/Immunologic: Allergic/Immunologic: Reports no additional allergic/immunologic complaints PMFSH Past Medical History Medical History A-fib Anemia CAD (coronary artery disease) Pulmonary embolism Syndrome X, cardiac Thalassemia UTI (urinary tract infection) Wrist fracture, right Surgical History Surgical History H/O cardiac radiofrequency ablation Social History Social History Smoking status: Never smoker Gender identity (if verbalized by the patient): Female Comments At the time of my signature, I reviewed and agree with the nursing past medical, surgical, social, and family history. There is no relevant family history pertinent to the patient complaint. Exam Const: General: cooperative, healthy appearing, comfortable, no acute distress, well developed, alert and well nourished Nutritional Appearance: well nourished Orientation/consciousness: patient oriented x3 Limitations: no limitations HENMT: Head: normal to inspection Ears: hearing grossly normal bilaterally and external ears normal Face/Nose/Sinus: Normal external nose present, Normal nares present, Normal nasal mucous membranes and turbinates present and normal facial exam Face and sinus: normal facial exam Mouth
[2022-10-16 10:33] VITALS: BP 137/80; PULSE 106; RESP 16; TEMP 37.1; O2SAT 100
== END 2022-10-16 11:02 | disposition home or self-care (01) ==
PROVIDERS: Emergency Provider Nurse Practitioner; PCP Student in an Organized Health Care Education/Training Program
DX: B00.9 Herpesviral infection, unspecified (principal); I48.91 Unspecified atrial fibrillation; I25.10 Atherosclerotic heart disease of native coronary artery without angina pectoris; Z86.711 Personal history of pulmonary embolism; Z79.82 Long term (current) use of aspirin
CPT/HCPCS: 87081; 87880; 99213; G0463

== ENCOUNTER 2023-01-01 13:40 | Emergency (ER) | payer MEDICARE, MEDICAID, SELFPAY ==
[2023-01-01 13:47] VITALS: BP 126/83; PULSE 99; RESP 16; TEMP 37.1; O2SAT 99
--- NOTE | 2023-01-01 14:03 | ED.SKABFB ---
HPI - Skin/Abscess/Foreign Bdy General Chief complaint: Skin/Abscess/Foreign Body Stated complaint: Insect Bite Time Seen by Provider: 01/01/23 14:03 Source: patient Mode of arrival: ambulatory Limitations: no limitations History of Present Illness HPI narrative: 37 yo F presents with c/o redness, pain, swelling to insect bite of L forearm. States she has been applying neosporin cream with no relief of symptoms. hx of MRSA. Concerned she is getting another infection. States last time she had infected insect bites she had them opened and drained. Afebrile. All systems reviewed and negative except as noted above. Related Data Home Medications Medication Instructions Recorded Confirmed aspirin 81 mg tablet,delayed 81 mg PO DAILY 07/23/21 03/05/22 release (Adult Aspirin Regimen) fludrocortisone 0.1 mg tablet 0.1 mg PO DAILY 07/23/21 03/05/22 nitroglycerin 0.3 mg sublingual 0.3 mg sublingual Q5M PRN Chest 07/23/21 03/05/22 tablet Pain propafenone 325 mg 325 mg PO Q12H 07/23/21 03/05/22 capsule,extended release 12 hr (Rythmol SR) cyclobenzaprine 5 mg tablet 5 mg PO DAILY PRN muscle relaxer 03/04/22 03/05/22 levonorgestrel 20.4 mcg/24 hrs (8 1 device intrauterine ONCE 10/16/22 10/16/22 yrs) 52 mg intrauterine device (Liletta) Allergies Allergy/AdvReac Type Severity Reaction Status Date / Time nitrofurantoin Allergy Intermediate Anaphylactic Verified 01/01/23 14:04 Shock ciprofloxacin Allergy Unknown HIVES/DIFFICULTY Verified 01/01/23 14:04 BREATHING ketorolac AdvReac Intermediate Dizziness Verified 01/01/23 14:04 Review of Systems Review of Systems: CONSTITUTIONAL: Denies fever, chills, or sweats. EYES: Denies visual changes, redness, or discharge. ENT: Denies rhinorrhea, congestion, sore throat, or otalgia. CARDIOVASCULAR: Denies chest pain, palpitations, or edema. RESPIRATORY: Denies cough or dyspnea. GASTROINTESTINAL: Denies abdominal pain, nausea, vomiting, or diarrhea. GENITOURINARY: Denies dysuria or hematuria. SKIN: Denies rash or itching. Reports worsening of redness and swelling to insect bite L arm MUSCULOSKELETAL: Denies back pain, joint pain, or myalgia. NEUROLOGIC: Denies headache, numbness, or weakness. PSYCHIATRIC: Denies anxiety or depression. All other systems reviewed are negative, except as documented in HPI. [facility] Past Medical History Medical History (Updated 01/01/23 @ 14:11 by Fauzia Herr NP) A-fib Anemia CAD (coronary artery disease) Pulmonary embolism Syndrome X, cardiac Thalassemia UTI (urinary tract infection) Wrist fracture, right Surgical History Surgical History H/O cardiac radiofrequency ablation Social History Social History Smoking status: Never smoker Gender identity (if verbalized by the patient): Female Comments At time of signature, agree with nursing past medical, surgical, social and family history. There is no relevant family history pertinent to the presenting complaint. Exam Narrative: GENERAL: This is a well-nourished, well-developed patient, in no apparent distress. HEAD: normocephalic, atraumatic. EYES: PERRL. Sclera clear/white. Vision is grossly intact. EARS: External ears normal NOSE: External nose normal NECK: Neck supple, non-tender without lymphadenopathy, masses or thyromegaly. CARDIOVASCULAR: Regular rate and rhythm without murmurs, gallops, or rubs. RESPIRATORY: Clear to auscultation. Breath sounds equal bilaterally. No wheezes, rales, or rhonchi. SKIN: warm, Dry, intact with no suspicious lesions or rash, good texture and turgor. erythematous indurated papule concerning for insect bite approx. 1cm diameter with another 1cm of erythema. no fluctuance or drainage. tender on palpation. NEURO: awake, alert, and oriented to person, place and time. There were no obvious focal neurologic abnormali
== END 2023-01-01 14:13 | disposition home or self-care (01) ==
PROVIDERS: Emergency Provider Nurse Practitioner Family; PCP Student in an Organized Health Care Education/Training Program
DX: S50.862A Insect bite (nonvenomous) of left forearm, initial encounter (principal); L08.9 Local infection of the skin and subcutaneous tissue, unspecified; W57.XXXA Bitten or stung by nonvenomous insect and other nonvenomous arthropods, initial encounter; I48.91 Unspecified atrial fibrillation; I25.10 Atherosclerotic heart disease of native coronary artery without angina pectoris; Z86.711 Personal history of pulmonary embolism; Z79.82 Long term (current) use of aspirin
CPT/HCPCS: 99213; G0463

== ENCOUNTER 2023-01-02 17:37 | Inpatient (IN) | payer MEDICARE, MEDICAID, SELFPAY ==
[2023-01-02] VITALS (17 sets, daily range): BP systolic 121–143; BP diastolic 80–94; PULSE 79–102; RESP 13–29; TEMP 37.1–37.3; O2SAT 98–100; BMI 19.3
--- NOTE | 2023-01-02 17:55 | ED.GENADULT ---
HPI - General Adult General Chief complaint: Skin/Abscess/Foreign Body Stated complaint: Cellulitis on left lower arm Time Seen by Provider: 01/02/23 17:50 Source: patient Mode of arrival: ambulatory Limitations: no limitations History of Present Illness HPI narrative: This is a 37-year-old female with PMH of thalassemia, paroxysmal A-fib, PE, who presents to the ED with chief complaint of possible cellulitis. She states that she was stung by a mosquito a few days ago and had some subsequent redness around the bite otilio area. Reports that she went to urgent care yesterday and was given a Bactrim prescription. States that she has taken 3 total doses of the Bactrim but today she started having streaking that went up the arm. She also reports starting to feel malaised and a little nauseous today. Reports low-grade fever of 99.5 at home. Denies vomiting. Denies abdominal pain, LOC, headache, sore throat, shortness of breath, cough. Patient states that her immune system is not very good, however she does not have any known immunocompromising conditions or take any medications that would cause this. Reports she has had MRSA of the lower leg in the past with cellulitis. 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 She does not take any medications for this. Related Data Home Medications Medication Instructions Recorded Confirmed aspirin 81 mg tablet,delayed 81 mg PO DAILY 07/23/21 03/05/22 release (Adult Aspirin Regimen) fludrocortisone 0.1 mg tablet 0.1 mg PO DAILY 07/23/21 03/05/22 nitroglycerin 0.3 mg sublingual 0.3 mg sublingual Q5M PRN Chest 07/23/21 03/05/22 tablet Pain propafenone 325 mg 325 mg PO Q12H 07/23/21 03/05/22 capsule,extended release 12 hr (Rythmol SR) cyclobenzaprine 5 mg tablet 5 mg PO DAILY PRN muscle relaxer 03/04/22 03/05/22 levonorgestrel 20.4 mcg/24 hrs (8 1 device intrauterine ONCE 10/16/22 10/16/22 yrs) 52 mg intrauterine device (Liletta) Allergies Allergy/AdvReac Type Severity Reaction Status Date / Time nitrofurantoin Allergy Intermediate Anaphylactic Verified 01/01/23 14:04 Shock ciprofloxacin Allergy Unknown HIVES/DIFFICULTY Verified 01/01/23 14:04 BREATHING ketorolac AdvReac Intermediate Dizziness Verified 01/01/23 14:04 [facility] Past Medical History Medical History (Updated 01/02/23 @ 20:15 by Justin Larsen PA-C) A-fib Anemia CAD (coronary artery disease) Pulmonary embolism Syndrome X, cardiac Thalassemia UTI (urinary tract infection) Wrist fracture, right Surgical History Surgical History H/O cardiac radiofrequency ablation Social History Social History Smoking status: Never smoker Gender identity (if verbalized by the patient): Female Exam Narrative: GENERAL: Slightly ill-appearing. Pleasant and conversational. HEAD: Normocephalic, atraumatic. EYES: PERRLA and EOMI. ENT: Nares clear, no rhinorrhea or epistaxis. Mucous membranes moist. Oropharynx without tonsillar hypertrophy exudate or other lesions. NECK: Supple. No adenopathy or masses. CHEST: No respiratory distress. Clear to auscultation. No wheezes rales or rhonchi HEART: Regular rate and rhythm. No murmur heard. Normal peripheral pulses. ABDOMEN: Soft, nontender, nondistended, normal active bowel sounds. MSK: Normal range of motion. No edema. SKIN: 4 cm x 4 cm area of erythema to the volar left forearm. Central lesion noted. No drainage. No fluctuance or abscess to be palpated. Erythematous streaking proximally up the medial arm from the area of erythema distally. NEURO: Alert and oriented x3. No focal deficits. PSYCH: Normal mood and affect. Course Vital Signs Vital signs: Vital Signs Temperature 99.2 F 01/02/23 17:45 Pulse Rate 102 H 01/02/23 17:45 Respiratory Rate 18 01/02/23 17:45 Blood Pressure 143/92 H 01/02/23 17:45 Pulse Oximet
[2023-01-02] MEDS: MORPHINE SULFATE (*CRX) 4 MG/ML INJ IV PUSH (18:45)
[2023-01-02] MEDS: SODIUM CHLORIDE 0.9% IV 1,000 ML 999 ML IV CONT (18:45)
[2023-01-02] MEDS: ONDANSETRON INJ 4 MG/2 ML VIAL IV PUSH (18:45)
[2023-01-02 18:56] LABS: Basophils Percent Auto 0.5 % (0.2-1.2); Eosinophils Absolute Auto 0.2 K/mm3 (0-0.3); Eosinophils Percent Auto 2.8 % (0-4.4); Hematocrit 32.5 % (37.0-47.0); Hemoglobin 10.2 g/dL (12.0-15.0); Immature Granulocyte Absolute 0.02 K/mm3 (0.00-0.031); Immature Granulocyte Percent A 0.2 % (0-0.5); Lymphocytes Absolute Auto 1.04 K/mm3 (0.9-3.2); Mean Corpuscular HGB Conc 31.4 g/dl (32-36); Mean Corpuscular Volume 63.9 fl (80-100); Monocytes Absolute Auto 0.5 K/mm3 (0.1-0.6); Monocytes Percent Auto 5.2 % (2.6-8.5); Neutrophils Absolute Auto 6.9 K/mm3 (1.3-6.7); Neutrophils Percent Auto 79.3 % (45.5-73.1); Platelet Count Result 272 k/mm3 (150-375); Red Blood Count 5.09 M/mm3 (4.2-5.4); Red Cell Distribution Width 15.2 % (11.5-14.5); White Blood Count 8.7 K/mm3 (4.5-10.0)
[2023-01-02 19:09] LABS: Alanine Aminotransferase 16 U/L (6-35); Albumin Level 4.9 g/dL (3.5-5.1); Alkaline Phosphatase 43 U/L (38-126); Anion Gap 10 mmol/L (8-16); Aspartate Amino Transferase 27 U/L (14-36); Bilirubin,Total 0.5 mg/dL (0.2-1.3); Blood Urea Nitrogen 9 mg/dL (7-17); Calcium 9.6 mg/dL (8.4-10.2); Carbon Dioxide 24 mmol/L (22-30); Chloride 106 mmol/L (98-107); Estimated CRCL calculation 63 ml/min; Estimated Glomerular Filt Rate > 60; Glucose 92 mg/dL (65-110); Potassium 3.6 mmol/L (3.4-5.0); Sodium 140 mmol/L (137-145)
[2023-01-02 19:11] LABS: CRP < 0.5 mg/dL (<1.0)
[2023-01-02 19:20] LABS: Platelet Estimate Adequate (Adequate)
[2023-01-02 19:21] LABS: Anisocytosis 2+ (NORMAL); Microcytosis 1+ (NORMAL); Poikilocytosis 2+ (NORMAL)
[2023-01-02 19:23] LABS: Hypochromasia 1+ (NORMAL); Schistocytes Rare (NORMAL)
--- NOTE | 2023-01-02 19:53 | PC.NURSE ---
No cultures needed prior to antbiotics per PATRICIA Larsen
[2023-01-02] MEDS: ceFAZolin 1 GM/NS 50 ML 1 GM/50 ML BAG IVPB (19:54)
[2023-01-02] MEDS: MORPHINE SULFATE (*CRX) 2 MG/ML INJ IV PUSH (20:33)
--- NOTE | 2023-01-02 22:13 | PM.IMHP ---
H&P: HPI History of Present Illness Date/Time: 01/02/23 22:13 Chief Complaint: Redness and pain of the right arm Narrative: 37-year-old female with a past medical history of beta thalassemia, POTS, paroxysmal atrial fibrillation status post ablation, HSV and MRSA who presented to the ER with cellulitis and pain of her left volar forearm. The patient reports that she thinks she was bit by a mosquito bite 5 days ago. Initially the lesion was just itching. She thought that she was bitten by a mosquito. A couple of days later she began having some swelling and pain to the area. The pain is worsened as days have progressed. She went to urgent care on the when she began having some erythema around the area. She was given a prescription for Bactrim and she has taken 3 doses. However today she began to having some streaking upper left arm. And she decided come into the ER when she developed a temperature of 99.5?. She reports that due to her chronic heart trouble that she has a low immune system. She does not have any specific immunodeficiency. She does not take any immunosuppressants. She has had multiple skin infections in the past with her having a MRSA infection of her thigh couple of years ago. She reports that she has been having some associated malaise and is felt a little bit nauseated but has not had been having any vomiting. She denies any cough or congestion. She denies any recent ill contacts. She does not use IV drugs. Review of Systems Review of Systems: 12 systems were reviewed with pertinent positives and negatives per HPI. Except as documented in the HPI, all other systems were reviewed and are negative. [facility] Past Medical History Medical History (Updated 01/03/23 @ 04:45 by Eboni Rutherford DO) A-fib Anemia Beta thalassemia CAD (coronary artery disease) POTS (postural orthostatic tachycardia syndrome) Per patient report Pulmonary embolism (~2012) Following sheath placement for cardiac ablation. 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 She lives with her 14-year-old biological daughter and her 11-year-old adopted son. She is recently . She has a small dog. Surrogate decision maker: Bernardo Maloney (ex-) [phone]. She reports that her emergency contact in the computer is listed as her boyfriend but if it were truly a life for situation she would prefer that her make decisions for her. She would not want her father to make decisions for her as he has a evidence technician. Her mother is . Code status: Full code Smoking status: Never smoker Alcohol intake: never Substance use: never Lack of Transportation: No Lack of Food: Never True Current Housing: I Have Housing Concerned About Future Housing: No Difficulty Paying Gas/Electric Bills: No Difficulty Paying for Meds: No Currently Unemployed: No Education: Don't Know Difficulty w/ Childcare or Family Care: No Gender identity (if verbalized by the patient): Female Spiritual care concerns: No Meds Home Medications and Allergies Home Medications Medication Instructions Recorded Confirmed Type aspirin 81 mg tablet,delayed 81 mg PO DAILY 07/23/21 01/02/23 History release (Adult Aspirin Regimen) fludrocortisone 0.1 mg tablet 0.1 mg PO DAILY
[2023-01-02] MEDS: SODIUM CHLORIDE 0.9% IV 1,000 ML 125 ML IV CONT (22:40)
--- NOTE | 2023-01-02 22:57 | ADMGEN ---
This patient, Trudi Maloney, was admitted to Medical Room 347-. Patient/family oriented to hospital policies and general routines including ID bracelet, bed and alarms, visiting hours, pain management, procedures, bathroom and other care routines, personal items, smoking policy, room service/diet, and visiting hours. Information on how to activate the Rapid Response Team has been discussed. Patient/Family are encouraged to report perceived risks to care and to ask questions if they do not understand what they are told or what they should do.
[2023-01-03] MEDS: IBUPROFEN 600 MG TABLET PO (00:03)
--- NOTE | 2023-01-03 00:09 | PHAR ---
PHARMACY VERIFIED HOME MED: * USE FROM HOME * PROPAFENONE HCL SR 325 MG CAPSULE TAKE ONE CAPSULE BY MOUTH EVERY 12 HOURS BLUE/WHITE CAPSULE WITH I 145
[2023-01-03] MEDS: MORPHINE SULFATE (*CRX) 2 MG/ML INJ IV PUSH ×3 (00:37→09:29)
[2023-01-03 05:08] VITALS: BP 109/67; PULSE 87; RESP 16; TEMP 36.7; O2SAT 100
[2023-01-03] MEDS: ceFAZolin 1 GM/NS 50 ML 1 GM/50 ML BAG IVPB (05:08)
[2023-01-03] MEDS: SODIUM CHLORIDE 0.9% IV 1,000 ML 125 ML IV CONT (05:10)
[2023-01-03 06:25] LABS: Basophils Percent Auto 0.6 % (0.2-1.2); Eosinophils Absolute Auto 0.3 K/mm3 (0-0.3); Eosinophils Percent Auto 5.8 % (0-4.4); Hematocrit 27.7 % (37.0-47.0); Hemoglobin 8.6 g/dL (12.0-15.0); Immature Granulocyte Absolute 0.01 K/mm3 (0.00-0.031); Immature Granulocyte Percent A 0.2 % (0-0.5); Immature Platelet Fraction Pct 3.1 % (0.9-11.2); Lymphocytes Absolute Auto 1.16 K/mm3 (0.9-3.2); Lymphocytes Percent Auto 21.6 % (18.3-44.2); Mean Corpuscular Volume 64.4 fl (80-100); Mean Platelet Volume 11.6 fl (7.4-10.4); Monocytes Absolute Auto 0.4 K/mm3 (0.1-0.6); Monocytes Percent Auto 7.6 % (2.6-8.5); Neutrophils Absolute Auto 3.5 K/mm3 (1.3-6.7); Neutrophils Percent Auto 64.2 % (45.5-73.1); Platelet Count Result 219 k/mm3 (150-375); Red Cell Distribution Width 15.3 % (11.5-14.5); White Blood Count 5.4 K/mm3 (4.5-10.0)
[2023-01-03 06:40] LABS: Potassium 4.2 mmol/L (3.4-5.0); Sodium 136 mmol/L (137-145)
[2023-01-03 06:41] LABS: Anion Gap 1 mmol/L (8-16); Blood Urea Nitrogen 7 mg/dL (7-17); Calcium 8.4 mg/dL (8.4-10.2); Carbon Dioxide 26 mmol/L (22-30); Chloride 109 mmol/L (98-107); Estimated CRCL calculation 71 ml/min; Estimated Glomerular Filt Rate > 60; Glucose 86 mg/dL (65-110)
--- NOTE | 2023-01-03 06:58 | WPDPROCEDUR ---
Procedures Abscess I/D Site: upper extremity Side (if applicable): left Sedation/analgesia: none Anesthetic used: with epi Technique: incised with #11 blade and probed loculations Amount of fluid (mL): 5 Irrigation: No Packing used?: iodoform
[2023-01-03 07:12] LABS: Hypochromasia 2+ (NORMAL); Microcytosis 2+ (NORMAL); Platelet Estimate Adequate (Adequate)
[2023-01-03 07:13] LABS: Schistocytes None Seen (NORMAL)
[2023-01-03 08:20] LABS: Iron 47 ug/dL (37-170)
[2023-01-03] MEDS: FLUDROCORTISONE ACETATE 0.1 MG TABLET PO (08:26)
[2023-01-03] MEDS: ASPIRIN 81 MG ENTERIC TABLET PO (08:26)
[2023-01-03 08:30] VITALS: PULSE 87; RESP 16; O2SAT 100
[2023-01-03 08:30] LABS: Percent Iron Saturation 17 % (20-50)
[2023-01-03 09:24] LABS: Folic Acid 9.1 ng/mL (2.76->20)
--- NOTE | 2023-01-03 10:35 | PM.DS ---
DS: Admitting Diagnosis Discharge Date 01/03/2023 Admitting Diagnosis Cellulitis left upper extremity Abscess left upper extremity DS: Discharge Diagnosis Discharge Diagnosis (1) Abscess: Code(s): L02.91 - Cutaneous abscess, unspecified Status: Acute Assessment and Plan: S/P Incision and drainage by admitting Hospitalist. Patient reports improvement in pain and improvement in lymphatic streaking up the arm. She desires discharge on antibiotics. Will send home on doxycycline. (2) Cellulitis: Qualifiers: Laterality: left Site of cellulitis: extremity Site of cellulitis of extremity: upper extremity Qualified Code(s): L03.114 - Cellulitis of left upper limb Code(s): L03.90 - Cellulitis, unspecified Status: Acute Assessment and Plan: Lymphatic streaking already improving significantly s/p abscess drainage and antibiotics given. Will dishcarge patient on doxycycline due to history of MRSA in previous abscess. (3) Beta thalassemia: Code(s): D56.1 - Beta thalassemia Status: Acute Assessment and Plan: Minor drop in H&H s/p fluid infusion. No active bleeding. Iron studies, B12 and folate grossly unremarkable. As patient is asymptomatic, no further workup or treatment needed at this time. (4) POTS (postural orthostatic tachycardia syndrome): Code(s): G90.A - Postural orthostatic tachycardia syndrome [POTS] Status: Acute Assessment and Plan: Stable, no tachycardia or orthostatic events while in the hospital. Continue home medications. DS: Summary Hospital Course Reason for hospitalization: 37-year-old female patient with a history of POTS, paroxysmal atrial fibrillation, CAD admitted to the hospital for antibiotics due to left arm cellulitis failure of outpatient management on Bactrim. Patient went to urgent care couple days ago was prescribed Bactrim but had worsening erythema worsening swelling and pain with red streaking up the arm. Workup in the emergency department showed normal labs but ED staff did not feel there was need for incision and drainage as there is no fluctuance noted at this site of concern. Hospital Course: Patient was treated with IV cefazolin and IV fluids. Incision and drainage after bedside ultrasound use completed by Dr. Tipton with about 7-8 mL purulent drainage. Patient reports significant improvement in pain and near resolution of lymphatic streaking. Patient requesting discharge after I&D. Status at Discharge Cognitive/behavioral status at discharge: Awake, alert, oriented in no distress Functional status at discharge: independent ambulation Time Spent with Patient Time attestation: Total time spent providing and/or coordinating discharge services: Exam Narrative: Const:?? Other: No acute d istress, well-deve loped well-nourish ed, thin body habi tus ? HENMT:?? Other: Mucous mem branes are moist, no oral pharyngeal erythema, head is normocephalic atr aumatic ? Eyes:?? Other: Pupils are equal and reactiv e, no scleral icte mel, no conjunctiv al pallor ? Neck:?? Other: No JVD, no lymphadenopathy, trachea midline ? Resp:?? Other: Clear to a uscultation bilate rally, no increase d work of breathin g ? Cardio:?? Other: Regular ra te, regular rhythm , 2+ bilateral rad ial pedal pulses ? GI:?? Other: Soft, nont linda, nondistende d, positive b
[2023-01-03] MEDS: DOXYCYCLINE HYCLATE 100 MG TABLET PO (11:32)
--- NOTE | 2023-01-07 14:42 | PC.NURSE ---
Spoke to Dr. Marrero regarding MRSA in wound. Pt was dc on doxycycline. MRSA is susceptible to this.
--- NOTE | 2023-01-08 09:06 | PC.NURSE ---
Blood cx are negative. Dr. Elida hunter.
== END 2023-01-03 12:45 | disposition home or self-care (01) | DRG 603 ==
LOC: ANHED 20:17 → ANH3MED 21:21
PROVIDERS: Admitting Provider Internal Medicine; Emergency Provider Physician Assistant; PCP Student in an Organized Health Care Education/Training Program; Visit Provider Nurse Practitioner
DX: L03.114 Cellulitis of left upper limb (principal); I48.0 Paroxysmal atrial fibrillation; D56.1 Beta thalassemia; D64.9 Anemia, unspecified; G90.A Postural orthostatic tachycardia syndrome [POTS]; I25.10 Atherosclerotic heart disease of native coronary artery without angina pectoris; Z86.711 Personal history of pulmonary embolism; Z86.14 Personal history of Methicillin resistant Staphylococcus aureus infection; Z79.82 Long term (current) use of aspirin
CPT/HCPCS: 36415; 80048; 80053; 82607; 82728; 82746; 83540; 83550; 84145; 85025; 85055; 86140; 87040; 87070; 87147; 87181; 87186; 87205; 96361; 96365; 96375; 96376; 99213; 99285; A9270; G0378; G0463; J0690; J2270; J2405; J7030

== ENCOUNTER 2023-02-18 08:34 | Emergency (ER) | payer MEDICARE, MEDICAID, SELFPAY ==
--- NOTE | 2023-02-18 08:39 | ED.FEMALEGU ---
HPI - Female Genitourinary General Chief complaint: Urogenital-Female Stated complaint: UTI Source: patient and RN notes reviewed Mode of arrival: ambulatory Limitations: no limitations History of Present Illness MD elicited complaint: UTI Related Data Home Medications Medication Instructions Recorded Confirmed aspirin 81 mg tablet,delayed 81 mg PO DAILY 07/23/21 02/18/23 release (Adult Aspirin Regimen) fludrocortisone 0.1 mg tablet 0.1 mg PO DAILY 07/23/21 02/18/23 nitroglycerin 0.3 mg sublingual 0.3 mg sublingual Q5M PRN Chest 07/23/21 02/18/23 tablet Pain propafenone 325 mg 325 mg PO Q12H 07/23/21 02/18/23 capsule,extended release 12 hr (Rythmol SR) cyclobenzaprine 5 mg tablet 5 mg PO DAILY muscle relaxer 03/04/22 02/18/23 levonorgestrel 20.4 mcg/24 hrs (8 1 device intrauterine ONCE 10/16/22 02/18/23 yrs) 52 mg intrauterine device (Liletta) isosorbide dinitrate 5 mg tablet 5 mg PO DAILY PRN Angina 01/02/23 02/18/23 valacyclovir 500 mg tablet 500 mg PO HS 01/02/23 02/18/23 Allergies Allergy/AdvReac Type Severity Reaction Status Date / Time nitrofurantoin Allergy Intermediate Anaphylactic Verified 02/18/23 08:37 Shock ciprofloxacin Allergy Unknown HIVES/DIFFICULTY Verified 02/18/23 08:37 BREATHING tramadol Allergy Hallucinati Verified 02/18/23 08:37 ng ketorolac AdvReac Intermediate Dizziness Verified 02/18/23 08:37 Review of Systems Review of Systems: CONSTITUTIONAL: Denies malaise, chills, sweats, or fever. CARDIOVASCULAR: Denies chest pain, palpitations, or edema. RESPIRATORY: Denies cough or dyspnea. GASTROINTESTINAL: Denies abdominal pain, nausea, vomiting, diarrhea GENITOURINARY: Reports dysuria, frequency, urgency, suprapubic pressure. Denies flank pain or hematuria. SKIN: Denies rash or itching. MUSCULOSKELETAL: Denies back pain or myalgia. All systems reviewed & are unremarkable except as noted in HPI and below PMFSH Past Medical History Medical History (Updated 02/18/23 @ 09:16 by Rylie Horta NP) A-fib Anemia Beta thalassemia CAD (coronary artery disease) POTS (postural orthostatic tachycardia syndrome) Per patient report Pulmonary embolism (~2012) Following sheath placement for cardiac ablation. 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 She lives with her 14-year-old biological daughter and her 11-year-old adopted son. She is recently . She has a small dog. Surrogate decision maker: Bernardo Maloney (ex-) [phone]. She reports that her emergency contact in the computer is listed as her boyfriend but if it were truly a life for situation she would prefer that her make decisions for her. She would not want her father to make decisions for her as he has a launderette attendant. Her mother is . Code status: Full code Smoking status: Never smoker Alcohol intake: never Substance use: never Lack of Transportation: No Lack of Food: Never True Current Housing: I Have Housing Concerned About Future Housing: No Difficulty Paying Gas/Electric Bills: No Difficulty Paying for Meds: No Currently Unemployed: No Education: Don't Know Difficulty w/ Childcare or Family Care: No Gender identity (if verbalized by the patient): Female Spiritual care concerns: No Comments At
[2023-02-18 08:52] VITALS: BP 112/76; PULSE 79; RESP 16; TEMP 36.9; O2SAT 100
== END 2023-02-18 09:22 | disposition home or self-care (01) ==
PROVIDERS: Emergency Provider Nurse Practitioner; PCP Student in an Organized Health Care Education/Training Program
DX: R35.0 Frequency of micturition (principal); R39.15 Urgency of urination; R30.0 Dysuria; R53.83 Other fatigue; I48.91 Unspecified atrial fibrillation; I25.10 Atherosclerotic heart disease of native coronary artery without angina pectoris; Z86.711 Personal history of pulmonary embolism; D89.89 Other specified disorders involving the immune mechanism, not elsewhere classified; G90.A Postural orthostatic tachycardia syndrome [POTS]; Z79.82 Long term (current) use of aspirin
CPT/HCPCS: 81003; 87077; 87086; 87186; 99213; G0463

== ENCOUNTER 2023-08-02 15:05 | Emergency (ER) | payer MEDICARE, MEDICAID, SELFPAY ==
[2023-08-02 15:23] VITALS: BP 108/79; PULSE 96; RESP 16; TEMP 36.8; O2SAT 100
--- NOTE | 2023-08-02 16:32 | ED.GENADULT ---
HPI - General Adult General Chief complaint: Upper Respiratory Infection Stated complaint: Sinus Source: patient Mode of arrival: ambulatory Limitations: no limitations History of Present Illness HPI narrative: Pt presents for evaluation of sinus symptoms for the past three weeks. She initially had sinus congestion, drainage, fatigue and sore throat. Fatigue and sore throat have resolved. Her sinus symptoms persist. She reports clear and green/brown nasal drainage, sinus pressure and frontal headache. Her child recently had similar symptoms. She reports a low grade fever that started within the past 24 hrs. She Also has a left-sided ear pressure without tinnitus, hearing loss or drainage. She does not smoke. She has a history of AFib and pulmonary embolism status post cardiac ablation. Related Data Home Medications Medication Instructions Recorded Confirmed aspirin 81 mg tablet,delayed 81 mg PO DAILY 07/23/21 08/02/23 release (Adult Aspirin Regimen) fludrocortisone 0.1 mg tablet 0.1 mg PO DAILY 07/23/21 08/02/23 nitroglycerin 0.3 mg sublingual 0.3 mg sublingual Q5M PRN Chest 07/23/21 08/02/23 tablet Pain propafenone 325 mg 325 mg PO Q12H 07/23/21 08/02/23 capsule,extended release 12 hr (Rythmol SR) levonorgestrel 20.4 mcg/24 hrs (8 1 device intrauterine ONCE 10/16/22 08/02/23 yrs) 52 mg intrauterine device (Liletta) isosorbide dinitrate 5 mg tablet 5 mg PO DAILY PRN Angina 01/02/23 08/02/23 valacyclovir 500 mg tablet 500 mg PO HS 01/02/23 08/02/23 Allergies Allergy/AdvReac Type Severity Reaction Status Date / Time nitrofurantoin Allergy Intermediate Anaphylactic Verified 08/02/23 15:29 Shock ciprofloxacin Allergy Unknown HIVES/DIFFICULTY Verified 08/02/23 15:29 BREATHING tramadol Allergy Hallucinati Verified 08/02/23 15:29 ng Review of Systems Review of Systems: CONSTITUTIONAL: Reports fever. Denies chills, or sweats. EYES: Denies visual changes, redness, or discharge. ENT: Reports sinus congestion and nasal discharge. Reports resolution of previously experienced sore throat. CARDIOVASCULAR: Denies chest pain, palpitations, or edema. RESPIRATORY: Denies cough and SOB GASTROINTESTINAL: Denies abdominal pain, nausea, vomiting, or diarrhea. GENITOURINARY: Denies dysuria or hematuria. SKIN: Denies rash or itching. MUSCULOSKELETAL: Denies back pain, joint pain, or myalgia. NEUROLOGIC: Reports frontal headache. Denies numbness, dizziness, or weakness. PSYCHIATRIC: Denies anxiety or depression. [facility] Past Medical History Medical History A-fib Anemia Beta thalassemia CAD (coronary artery disease) POTS (postural orthostatic tachycardia syndrome) Per patient report Pulmonary embolism (~2012) Following sheath placement for cardiac ablation. 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 She lives with her 14-year-old biological daughter and her 11-year-old adopted son. She is recently . She has a small dog. Surrogate decision maker: Bernardo Maloney (ex-) [phone]. She reports that her emergency contact in the computer is listed as her boyfriend but if it were truly a life for situation she would prefer that her make decisions for her. She wou
== END 2023-08-02 16:36 | disposition home or self-care (01) ==
PROVIDERS: Emergency Provider Nurse Practitioner; PCP Student in an Organized Health Care Education/Training Program
DX: J32.9 Chronic sinusitis, unspecified (principal); I48.91 Unspecified atrial fibrillation; I25.10 Atherosclerotic heart disease of native coronary artery without angina pectoris; Z86.711 Personal history of pulmonary embolism; D56.1 Beta thalassemia
CPT/HCPCS: 99213; G0463

== ENCOUNTER 2023-10-01 14:24 | Emergency (ER) | payer MEDICARE, MEDICAID, SELFPAY ==
--- NOTE | 2023-10-01 14:37 | ED.FEMALEGU ---
HPI - Female Genitourinary General Chief complaint: Urogenital-Female Stated complaint: UTI Time Seen by Provider: 10/01/23 14:40 Source: patient, RN notes reviewed and old records reviewed Mode of arrival: ambulatory Limitations: no limitations History of Present Illness HPI Narrative: 37-year-old female presents to the [facility] with concerns for a UTI. Patient states that she has had frequency, urgency, feeling of unable to empty the bladder, suprapubic pressure since yesterday. States it feels like past UTI Related Data Home Medications Medication Instructions Recorded Confirmed aspirin 81 mg tablet,delayed 81 mg PO DAILY 07/23/21 10/01/23 release (Adult Aspirin Regimen) fludrocortisone 0.1 mg tablet 0.1 mg PO DAILY 07/23/21 10/01/23 nitroglycerin 0.3 mg sublingual 0.3 mg sublingual Q5M PRN Chest 07/23/21 10/01/23 tablet Pain propafenone 325 mg 325 mg PO Q12H 07/23/21 10/01/23 capsule,extended release 12 hr (Rythmol SR) levonorgestrel 20.4 mcg/24 hrs (8 1 device intrauterine ONCE 10/16/22 10/01/23 yrs) 52 mg intrauterine device (Liletta) isosorbide dinitrate 5 mg tablet 5 mg PO DAILY PRN Angina 01/02/23 10/01/23 valacyclovir 500 mg tablet 500 mg PO HS 01/02/23 10/01/23 cyclobenzaprine 5 mg tablet 5 mg DIRECTED 10/01/23 10/01/23 Allergies Allergy/AdvReac Type Severity Reaction Status Date / Time nitrofurantoin Allergy Intermediate Anaphylactic Verified 08/02/23 15:29 Shock ciprofloxacin Allergy Unknown HIVES/DIFFICULTY Verified 08/02/23 15:29 BREATHING tramadol Allergy Hallucinati Verified 08/02/23 15:29 ng Review of Systems Review of Systems: All systems reviewed & are unremarkable except as noted in HPI and below Constitutional: Constitutional: Reports no additional constitutional complaints Eyes: Eyes: Reports no additional eye complaints ENT: Reports system reviewed and no additional complaints, except as documented Cardiovascular: Cardiovascular: Reports no additional cardiovascular complaints, Denies chest pain and Denies dyspnea Respiratory: Respiratory: Reports no additional respiratory complaints, Denies chest congestion, Denies cough and Denies dyspnea Gastrointestinal: Gastrointestinal: Reports no additional gastrointestinal complaints, Denies abdominal pain, Denies nausea and Denies vomiting Genitourinary: Genitourinary: Reports as per HPI Musculoskeletal: Musculoskeletal: Reports no additional musculoskeletal complaints Integumentary/Breasts: Skin/Breast: Reports system reviewed and no additional complaints, except as docu Neurologic: Reports system reviewed and no additional complaints, except as documented Psychiatric: Psychiatric: Reports no additional psychiatric complaints Allergic/Immunologic: Allergic/Immunologic: Reports no additional allergic/immunologic complaints PMFSH Past Medical History Medical History A-fib Anemia Beta thalassemia CAD (coronary artery disease) POTS (postural orthostatic tachycardia syndrome) Per patient report Pulmonary embolism (~2012) Following sheath placement for cardiac ablation. 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 She lives with her 14-year-old biological daughter and her 11-year-old adopted son. She is recently
[2023-10-01 14:42] VITALS: BP 116/74; PULSE 87; RESP 16; TEMP 37; O2SAT 100
[2023-10-01 14:44] VITALS: BP 116/74; PULSE 87; RESP 16; TEMP 37; O2SAT 100
== END 2023-10-01 14:54 | disposition home or self-care (01) ==
PROVIDERS: Emergency Provider Nurse Practitioner; PCP Student in an Organized Health Care Education/Training Program
DX: N39.0 Urinary tract infection, site not specified (principal); B96.20 Unspecified Escherichia coli [E. coli] as the cause of diseases classified elsewhere; I48.91 Unspecified atrial fibrillation; I25.10 Atherosclerotic heart disease of native coronary artery without angina pectoris; D56.1 Beta thalassemia; D64.9 Anemia, unspecified; Z86.711 Personal history of pulmonary embolism; Z79.82 Long term (current) use of aspirin
CPT/HCPCS: 81003; 87077; 87086; 87186; 99213; G0463

== ENCOUNTER 2024-01-14 08:40 | Emergency (ER) | payer MEDICARE, MEDICAID, SELFPAY ==
[2024-01-14 09:04] VITALS: BP 117/77; PULSE 94; RESP 16; TEMP 36.6; O2SAT 99
[2024-01-14 09:08] LABS: EDUAAPPEAR Cloudy; EDUABILI Negative; EDUABLOOD 3+; EDUACOLOR1 Amber; EDUAGLUCOSE Negative; EDUAKETONE Negative; EDUALEUKO 3+; EDUANITRATE Negative; EDUAPH 5.5; EDUAPROTEIN Negative; EDUASPGRAVITY 1.005; EDUAUROBILI 0.2
--- NOTE | 2024-01-14 09:21 | ED.FEMALEGU ---
HPI - Female Genitourinary General Chief complaint: Urogenital-Female Stated complaint: urinary issue Time Seen by Provider: 01/14/24 09:11 Source: patient and RN notes reviewed Mode of arrival: ambulatory Limitations: no limitations History of Present Illness HPI Narrative: Patient presents today with a 4 day history of urgency, headache, suprapubic cramping, chills, malodorous urine. Currently rates her pain 4/10 and has been taking some ibuprofen with relief. Related Data Home Medications Medication Instructions Recorded Confirmed aspirin 81 mg tablet,delayed 81 mg PO DAILY 07/23/21 01/14/24 release (Adult Aspirin Regimen) fludrocortisone 0.1 mg tablet 0.1 mg PO DAILY 07/23/21 01/14/24 nitroglycerin 0.3 mg sublingual 0.3 mg sublingual Q5M PRN Chest 07/23/21 01/14/24 tablet Pain propafenone 325 mg 325 mg PO Q12H 07/23/21 01/14/24 capsule,extended release 12 hr (Rythmol SR) levonorgestrel 20.4 mcg/24 hr (up 1 device intrauterine ONCE 10/16/22 01/14/24 to 8 yrs) 52 mg intrauterine device (Liletta) isosorbide dinitrate 5 mg tablet 5 mg PO DAILY PRN Angina 01/02/23 01/14/24 valacyclovir 500 mg tablet 500 mg PO HS 01/02/23 01/14/24 cyclobenzaprine 5 mg tablet See Rx Instructions .Route .COMPLEX 01/14/24 01/14/24 Allergies Allergy/AdvReac Type Severity Reaction Status Date / Time ciprofloxacin Allergy Severe HIVES/DIFFICULTY Verified 01/14/24 09:00 BREATHING nitrofurantoin Allergy Severe Anaphylactic Verified 01/14/24 09:00 Shock tramadol AdvReac Intermediate Hallucinati Verified 01/14/24 09:00 ng Review of Systems Review of Systems: CONSTITUTIONAL: Denies body aches, fever, or sweats.+ chills EYES: Denies visual changes, redness, or discharge. ENT: Denies rhinorrhea, congestion, sore throat, or otalgia. CARDIOVASCULAR: Denies chest pain, palpitations, or edema. RESPIRATORY: Denies cough or dyspnea. GASTROINTESTINAL: Denies abdominal pain, nausea, vomiting, or diarrhea. GENITOURINARY: Denies dysuria or hematuria.+ urgency, malodorous urine, suprapubic cramping SKIN: Denies rash, itching, or wounds. MUSCULOSKELETAL: Denies back pain, joint pain, or myalgia. NEUROLOGIC: Denies numbness, tingling, or weakness.+ headache PSYCH: Denies depression or anxiety. [facility] Past Medical History Medical History A-fib Anemia Beta thalassemia CAD (coronary artery disease) POTS (postural orthostatic tachycardia syndrome) Per patient report Pulmonary embolism (~2012) Following sheath placement for cardiac ablation. 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 She lives with her 14-year-old biological daughter and her 11-year-old adopted son. She is recently . She has a small dog. Surrogate decision maker: Bernardo Maloney (ex-) [phone]. She reports that her emergency contact in the computer is listed as her boyfriend but if it were truly a life for situation she would prefer that her make decisions for her. She would not want her father to make decisions for her as he has a machine hand. Her mother is . Code status: Full code Smoking status: Never smoker Alcohol intake: never Substance use: never Lack of Transportation: No Lack of Food:
== END 2024-01-14 09:30 | disposition home or self-care (01) ==
PROVIDERS: Emergency Provider Nurse Practitioner; PCP Student in an Organized Health Care Education/Training Program
DX: N30.01 Acute cystitis with hematuria (principal); B96.20 Unspecified Escherichia coli [E. coli] as the cause of diseases classified elsewhere; I48.91 Unspecified atrial fibrillation; Z86.711 Personal history of pulmonary embolism; D56.1 Beta thalassemia; I25.119 Atherosclerotic heart disease of native coronary artery with unspecified angina pectoris; Z79.82 Long term (current) use of aspirin
CPT/HCPCS: 81003; 87077; 87086; 87088; 87186; 99213; G0463

== ENCOUNTER 2024-02-27 16:43 | Emergency (ER) | payer MEDICARE, MEDICAID, SELFPAY ==
--- NOTE | 2024-02-27 16:50 | ED.ABDPAIN ---
HPI - Abdominal Pain General Stated Complaint: UTI Source: patient, RN notes reviewed and old records reviewed Mode of arrival: ambulatory Limitations: no limitations History of Present Illness HPI narrative: Patient presents with one-day history of urinary frequency and burning. She also complains of foul-smelling urine, mild nausea. No vomiting. Denies any back pain. Does report some bladder spasms. No lower abdominal pain. Denies any fever, chills, sweats. Denies any injury or trauma. Voices no other concerns or complaints at this time. Related Data Home Medications Medication Instructions Recorded Confirmed aspirin 81 mg tablet,delayed 81 mg PO DAILY 07/23/21 02/27/24 release (Adult Aspirin Regimen) fludrocortisone 0.1 mg tablet 0.1 mg PO DAILY 07/23/21 02/27/24 nitroglycerin 0.3 mg sublingual 0.3 mg sublingual Q5M PRN Chest 07/23/21 02/27/24 tablet Pain propafenone 325 mg 325 mg PO Q12H 07/23/21 02/27/24 capsule,extended release 12 hr (Rythmol SR) levonorgestrel 20.4 mcg/24 hr (up 1 device intrauterine ONCE 10/16/22 02/27/24 to 8 yrs) 52 mg intrauterine device (Liletta) isosorbide dinitrate 5 mg tablet 5 mg PO DAILY PRN Angina 01/02/23 02/27/24 cyclobenzaprine 5 mg tablet See Rx Instructions .Route .COMPLEX 01/14/24 02/27/24 acyclovir 400 mg tablet 400 mg PO BID 02/27/24 02/27/24 Allergies Allergy/AdvReac Type Severity Reaction Status Date / Time ciprofloxacin Allergy Severe HIVES/DIFFICULTY Verified 02/27/24 16:45 BREATHING nitrofurantoin Allergy Severe Anaphylactic Verified 02/27/24 16:45 Shock tramadol AdvReac Intermediate Hallucinati Verified 02/27/24 16:45 ng Review of Systems Review of Systems: All systems reviewed & are unremarkable except as noted in HPI and below Constitutional: Constitutional: Reports as per HPI and Reports no additional constitutional complaints ENT: Reports system reviewed and no additional complaints, except as documented Cardiovascular: Cardiovascular: Reports no additional cardiovascular complaints Respiratory: Respiratory: Reports no additional respiratory complaints Gastrointestinal: Gastrointestinal: Reports as per HPI, Reports no additional gastrointestinal complaints, Reports nausea and Denies vomiting Genitourinary: Genitourinary: Reports dysuria, Reports urinary hesitancy and Reports urinary urgency PMFSH Past Medical History Medical History A-fib Anemia Beta thalassemia CAD (coronary artery disease) POTS (postural orthostatic tachycardia syndrome) Per patient report Pulmonary embolism (~2012) Following sheath placement for cardiac ablation. 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 She lives with her 14-year-old biological daughter and her 11-year-old adopted son. She is recently . She has a small dog. Surrogate decision maker: Bernardo Maloney (ex-) [phone]. She reports that her emergency contact in the computer is listed as her boyfriend but if it were truly a life for situation she would prefer that her make decisions for her. She would not want her father to make decisions for her as he has a soldering machine setter. Her mother is . Code status: Full code Smoking status: Never smoker Alcohol i
[2024-02-27 16:52] VITALS: BP 132/82; PULSE 90; RESP 20; TEMP 36.7; O2SAT 100
[2024-02-27 17:00] LABS: EDUAAPPEAR Cloudy; EDUABILI Negative; EDUABLOOD 3+; EDUACOLOR1 Orange; EDUAGLUCOSE Trace; EDUAKETONE Negative; EDUALEUKO 1+; EDUANITRATE Positive; EDUAPROTEIN Negative; EDUAUROBILI 0.2
== END 2024-02-27 17:10 | disposition home or self-care (01) ==
PROVIDERS: Emergency Provider Nurse Practitioner Family; PCP Student in an Organized Health Care Education/Training Program
DX: N30.01 Acute cystitis with hematuria (principal); I48.91 Unspecified atrial fibrillation; I25.110 Atherosclerotic heart disease of native coronary artery with unstable angina pectoris; D56.1 Beta thalassemia; Z86.711 Personal history of pulmonary embolism; Z79.82 Long term (current) use of aspirin
CPT/HCPCS: 81003; 87086; 99213; G0463

== ENCOUNTER 2024-03-03 17:44 | Emergency (ER) | payer MEDICARE, MEDICAID, SELFPAY ==
[2024-03-03 17:53] VITALS: BP 132/88; PULSE 92; RESP 19; TEMP 37.5; O2SAT 100
--- NOTE | 2024-03-03 18:42 | ED.DENTAL ---
HPI - Dental/Oral General Chief complaint: Unspecified Stated complaint: Mouth Rash Time Seen by Provider: 03/03/24 18:45 Source: patient, RN notes reviewed and old records reviewed Mode of arrival: ambulatory Limitations: no limitations History of Present Illness HPI Narrative: 38-year-old female presents to the [facility] with sores to her mouth. Lesions to the top lip No white patches noted in the mouth. Patient concern for yeast recently on antibiotics Treatment prior to arrival: none Related Data Home Medications Medication Instructions Recorded Confirmed aspirin 81 mg tablet,delayed 81 mg PO DAILY 07/23/21 02/27/24 release (Adult Aspirin Regimen) fludrocortisone 0.1 mg tablet 0.1 mg PO DAILY 07/23/21 02/27/24 nitroglycerin 0.3 mg sublingual 0.3 mg sublingual Q5M PRN Chest 07/23/21 02/27/24 tablet Pain propafenone 325 mg 325 mg PO Q12H 07/23/21 02/27/24 capsule,extended release 12 hr (Rythmol SR) levonorgestrel 20.4 mcg/24 hr (up 1 device intrauterine ONCE 10/16/22 02/27/24 to 8 yrs) 52 mg intrauterine device (Liletta) isosorbide dinitrate 5 mg tablet 5 mg PO DAILY PRN Angina 01/02/23 02/27/24 cyclobenzaprine 5 mg tablet See Rx Instructions .Route .COMPLEX 01/14/24 02/27/24 acyclovir 400 mg tablet 400 mg PO BID 02/27/24 02/27/24 Allergies Allergy/AdvReac Type Severity Reaction Status Date / Time ciprofloxacin Allergy Severe HIVES/DIFFICULTY Verified 03/03/24 18:15 BREATHING nitrofurantoin Allergy Severe Anaphylactic Verified 03/03/24 18:15 Shock tramadol AdvReac Intermediate Hallucinati Verified 03/03/24 18:15 ng Review of Systems Review of Systems: All systems reviewed & are unremarkable except as noted in HPI and below Constitutional: Constitutional: Reports no additional constitutional complaints Eyes: Eyes: Reports no additional eye complaints ENT: Reports as per HPI Cardiovascular: Cardiovascular: Reports no additional cardiovascular complaints, Denies chest pain and Denies dyspnea Respiratory: Respiratory: Reports no additional respiratory complaints, Denies chest congestion, Denies cough and Denies dyspnea Gastrointestinal: Gastrointestinal: Reports no additional gastrointestinal complaints, Denies abdominal pain, Denies nausea and Denies vomiting Musculoskeletal: Musculoskeletal: Reports no additional musculoskeletal complaints Integumentary/Breasts: Skin/Breast: Reports system reviewed and no additional complaints, except as docu Neurologic: Reports system reviewed and no additional complaints, except as documented Psychiatric: Psychiatric: Reports no additional psychiatric complaints Allergic/Immunologic: Allergic/Immunologic: Reports no additional allergic/immunologic complaints PMFSH Past Medical History Medical History A-fib Anemia Beta thalassemia CAD (coronary artery disease) POTS (postural orthostatic tachycardia syndrome) Per patient report Pulmonary embolism (~2012) Following sheath placement for cardiac ablation. 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 She lives with her 14-year-old biological daughter and her 11-year-old adopted son. She is recently . She has a small dog. Surrogate decision maker: Bernardo Maloney (ex-) [phone]. She re
== END 2024-03-03 19:05 | disposition home or self-care (01) ==
PROVIDERS: Emergency Provider Nurse Practitioner; PCP Student in an Organized Health Care Education/Training Program
DX: K12.0 Recurrent oral aphthae (principal); I48.91 Unspecified atrial fibrillation; I25.10 Atherosclerotic heart disease of native coronary artery without angina pectoris; Z86.711 Personal history of pulmonary embolism; D56.1 Beta thalassemia; Z79.82 Long term (current) use of aspirin
CPT/HCPCS: 99213; G0463

== ENCOUNTER 2024-03-25 15:26 | Emergency (ER) | payer MEDICARE, MEDICAID, SELFPAY ==
--- NOTE | ~2024-03-25 | XR_ITS ---
XR wrist LT min 3V Ordering provider: Ivanna Myers APRN History: . fall x today . Comparison: None. FINDINGS: BONES: No acute fracture or dislocation. No definite scaphoid fracture. JOINT SPACES: Well maintained. SOFT TISSUES: Normal. IMPRESSION: No acute osseous abnormality left wrist. Reviewed, dictated and finalized at location A.
[2024-03-25 15:42] VITALS: BP 125/78; PULSE 81; RESP 19; TEMP 37.3; O2SAT 100
--- NOTE | 2024-03-25 15:42 | ED.UPPEXIN ---
HPI - Extremity Injury (Upper) General Chief Complaint: Extremity Injury, Upper Stated Complaint: LT Wrist Pain Time Seen by Provider: 03/25/24 15:42 Source: patient, RN notes reviewed and old records reviewed Mode of arrival: ambulatory Limitations: no limitations History of Present Illness HPI narrative: Patient presents with complaints of left wrist pain after falling onto outstretched hand. She reports just prior to arrival she tripped over her dog, caught self with her outstretched left hand. She has had pain since. She has applied ice to the site. She has not taken any medication. She denies other injury and trauma. Voices no other concerns or complaints today. Related Data Home Medications Medication Instructions Recorded Confirmed aspirin 81 mg tablet,delayed 81 mg PO DAILY 07/23/21 03/25/24 release (Adult Aspirin Regimen) fludrocortisone 0.1 mg tablet 0.1 mg PO DAILY 07/23/21 03/25/24 nitroglycerin 0.3 mg sublingual 0.3 mg sublingual Q5M PRN Chest 07/23/21 03/25/24 tablet Pain propafenone 325 mg 325 mg PO Q12H 07/23/21 03/25/24 capsule,extended release 12 hr (Rythmol SR) levonorgestrel 20.4 mcg/24 hr (up 1 device intrauterine ONCE 10/16/22 03/25/24 to 8 yrs) 52 mg intrauterine device (Liletta) isosorbide dinitrate 5 mg tablet 5 mg PO DAILY PRN Angina 01/02/23 03/25/24 cyclobenzaprine 5 mg tablet See Rx Instructions .Route .COMPLEX 01/14/24 03/25/24 Allergies Allergy/AdvReac Type Severity Reaction Status Date / Time ciprofloxacin Allergy Severe HIVES/DIFFICULTY Verified 03/25/24 15:36 BREATHING nitrofurantoin Allergy Severe Anaphylactic Verified 03/25/24 15:36 Shock tramadol AdvReac Intermediate Hallucinati Verified 03/25/24 15:36 ng Review of Systems Review of Systems: All systems reviewed & are unremarkable except as noted in HPI and below Constitutional: Constitutional: Reports no additional constitutional complaints ENT: Reports system reviewed and no additional complaints, except as documented Cardiovascular: Cardiovascular: Reports no additional cardiovascular complaints Respiratory: Respiratory: Reports no additional respiratory complaints Gastrointestinal: Gastrointestinal: Reports no additional gastrointestinal complaints Musculoskeletal: Musculoskeletal: Reports as per HPI, Denies deformity and Reports arthralgias [facility] Past Medical History Medical History A-fib Anemia Beta thalassemia CAD (coronary artery disease) POTS (postural orthostatic tachycardia syndrome) Per patient report Pulmonary embolism (~2012) Following sheath placement for cardiac ablation. 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 She lives with her 14-year-old biological daughter and her 11-year-old adopted son. She is recently . She has a small dog. Surrogate decision maker: Bernardo Maloney (ex-) [phone]. She reports that her emergency contact in the computer is listed as her boyfriend but if it were truly a life for situation she would prefer that her make decisions for her. She would not want her father to make decisions for her as he has a ground school instructor. Her mother is . Code status: Full code Smoking status: Never smoker Alcohol intake: never [place]
== END 2024-03-25 16:40 | disposition home or self-care (01) ==
PROVIDERS: Emergency Provider Nurse Practitioner Family; PCP Student in an Organized Health Care Education/Training Program
DX: S63.502A Unspecified sprain of left wrist, initial encounter (principal); S66.912A Strain of unspecified muscle, fascia and tendon at wrist and hand level, left hand, initial encounter; W01.0XXA Fall on same level from slipping, tripping and stumbling without subsequent striking against object, initial encounter; I48.91 Unspecified atrial fibrillation; D56.1 Beta thalassemia; I25.110 Atherosclerotic heart disease of native coronary artery with unstable angina pectoris; Z86.711 Personal history of pulmonary embolism; Z79.82 Long term (current) use of aspirin
CPT/HCPCS: 73110; 99213; G0463

== ENCOUNTER 2024-05-23 14:28 | Outpatient (CLI) | payer MEDICARE, MEDICAID, SELFPAY ==
--- NOTE | ~2024-05-23 | MM_ITS ---
EXAMINATION: MM screening laina BI w oriana HISTORY: Screening TECHNIQUE: Craniocaudal and mediolateral oblique 3-D tomosynthesis images were obtained and synthetic 2-D images were generated. CAD analysis was submitted and interpreted. COMPARISON: No prior mammogram is available for comparison at this institution. BREAST PARENCHYMAL COMPOSITION: Dense: The breasts are extremely dense, which lowers the sensitivity of mammography. FINDINGS: There is no evidence of suspicious mass, calcification, or architectural distortion to sugg est malignancy in either breast. There has been no suspicious interval change. IMPRESSION: 1. No mammographic evidence of malignancy. 2. Recommend routine screening mammography in one year. BI-RADS Category 1: Negative Reviewed, dictated and finalized at location B. DROGENATION OPERATOR
== END 2024-05-23 14:29 | disposition home or self-care (01) ==
LOC: MICIMG 14:30
PROVIDERS: PCP Nurse Practitioner; Visit Provider Nurse Practitioner
DX: Z12.31 Encounter for screening mammogram for malignant neoplasm of breast (principal)
CPT/HCPCS: 77063; 77067

== ENCOUNTER 2024-06-09 10:59 | Emergency (ER) | payer MEDICARE, MEDICAID, SELFPAY ==
--- NOTE | ~2024-06-09 | XR_ITS ---
EXAMINATION: XR chest 2V DATE: 06/09/2024 11:21 INDICATION: Productive cough TECHNIQUE: frontal and lateral views of the chest were obtained. COMPARISON: Chest radiograph dated 09/03/2022 FINDINGS: The lungs remain clear with no focal airspace opacities, pulmonary edema, pleural effusion or pneumot horax. The cardiomediastinal silhouette is normal. Visualized bones and soft tissues are unremarkable . IMPRESSION: 1. No acute cardiopulmonary disease. Reviewed, dictated and finalized at location A. SUPERVISOR
--- NOTE | 2024-06-09 11:07 | ED_ITS ---
HPI - URI/Sore Throat General Chief Complaint: Upper Respiratory Infection Stated Complaint: Sinus Time Seen by Provider: 06/09/24 11:07 Source: patient, RN notes reviewed and old records reviewed Mode of arrival: ambulatory Limitations: no limitations History of Present Illness HPI Narrative: Patient presents with complaints of ?being sick? since . She reports that symptoms have waxed and waned daily, says they seem to be worse at night. She reports chills, lack of energy, sore throat, occasional cough, some postnasal drip. She reports that at the onset of illness she had a fever, states that she believes this has mostly resolved. She has been taking multiple [id number] medications with poor results. She is not in any distress at this time Related Data Home Medications ?Medication ?Instructions ?Recorded ?Confirmed ?Last Taken ?Type aspirin 81 mg tablet,delayed 81 mg PO DAILY 07/23/21 03/25/24 01/02/23 09:00 Hi story release (Adult Aspirin Regimen) fludrocortisone 0.1 mg tablet 0.1 mg PO DAILY 07/23/21 03/25/24 Unknown History nitroglycerin 0.3 mg sublingual 0.3 mg sublingual Q5M PRN Chest 07/23/21 03/25/24 Unknown History tablet Pain propafenone 325 mg 325 mg PO Q12H 07/23/21 03/25/24 01/02/23 09:00 History capsule,extended release 12 hr (Rythmol SR) levonorgestrel 20.4 mcg/24 hr (up 1 device intrauterine ONCE 10/16/22 03/25/24 Unknown History to 8 yrs) 52 mg intrauterine device (Liletta) isosorbide dinitrate 5 mg tablet 5 mg PO DAILY PRN Angina 01/02/23 03/25/24 Unknown History cyclobenzaprine 5 mg tablet See Rx Instructions .Route .COMPLEX 01/14/24 03/25/24 Unknown History Allergies Allergy/AdvReac Type Severity Reaction Status Date / Time ciprofloxacin Allergy Severe HIVES/DIFFICULTY Verified 06/09/24 11:01 BREATHING nitrofurantoin Allergy Severe Anaphylactic Verified 06/09/24 11:01 Shock tramadol AdvReac Intermediate Hallucinati Verified 06/09/24 11:01 ng Review of Systems Review of Systems: All systems reviewed & are unremarkable except as noted in HPI and below Constitutional: Constitutional: Reports as per HPI and Reports no additional constitutional complaints ENT: Reports system reviewed and no additional complaints, except as documented and Reports as per HPI Cardiovascular: Cardiovascular: Reports no additional cardiovascular complaints Respiratory: Respiratory: Reports as per HPI and Reports no additional respiratory complaints Gastrointestinal: Gastrointestinal: Reports no additional gastrointestinal complaints [facility] Past Medical History Medical History Beta thalassemia POTS (postural orthostatic tachycardia syndrome) Per patient report Anemia Wrist fracture, right UTI (urinary tract infection) A-fib Pulmonary embolism (~2012) Following sheath placement for cardiac ablation. 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 She lives with her 14-year-old biological daughter and her 11-year-old adopted son. She is recently . She has a small dog. Surrogate decision maker: Bernardo Maloney (ex-) [phone]. She reports that her emergency contact in the computer is listed as her boyfriend but if it were truly a life for situation she would prefer that her make decisions for her. She would not want her father to make decisions for her as he has a storage wharfage clerk. Her mother is . Code status: Full code Smoking status: Never smoker Alcohol intake: never Substance use: never Lack of Transportation: No Lack of Food: Never True Current Housing: I Have Housing Concerned About Future Housing: No Difficulty Paying Gas/Electric Bills: No Difficulty Paying for Meds: No Currently Unemployed: No Education: Don't Know Difficulty w/ Childcare or Family Care: No Gender identity (if verbalized by the patient): Female Spiritual care concerns: No Comments At the time of my signature, I reviewed and agree with the nursing past medical, surgical, social, and family history. There is no relevant family history pertinent to the patient complaint. Exam Const: General: cooperative, no acute distress, alert and awake Orie ntation/consciousness: oriented to person, oriented to place and oriented to time HENMT: Head: normal to inspection Ears: TM's normal bilaterally Face and sinus: no sinus tenderness Mouth: Yes moist mucous membranes Throat: po sterior oropharynx normal Resp: Effort & Inspection: normal respiratory effort and able to speak in complete sentences Auscultation: clear to auscultation bilaterally, no crackles, no rales, no rhonchi and no wheezes Cardio: Palpation: normal PMI Rate: regular rate Rhythm: regular rhythm Heart sounds: S1 normal heart sound present and S2 normal heart sound present Neuro: General: oriented to person, oriented to place and oriented to time Cranial nerves: Yes CN's II-XII intact bilaterally Psych: Appearance: grossly normal Thought process: Normal thought process present Insight: Good insight present (Psych) Judgement: Good judgement present (Psych) Course Course Level of Care: Express Care Visit Vital Signs Vital signs: Vital Signs Temperature 98.5 F 06/09/24 11:10 Pulse Rate 88 06/09/24 11:10 Respiratory Rate 18 06/09/24 11:10 Blood Pressure 126/78 06/09/24 11:10 Pulse Oximetry 100 06/09/24 11:10 Oxygen Delivery Room Air 06/09/24 11:10 Temperature 98.5 F 06/09/24 11:10 Pulse Rate 88 06/09/24 11:10 Respiratory Rate 18 06/09/24 11:10 Blood Pressure 126/78 06/09/24 11:10 Pulse Oximetry 100 06/09/24 11:10 Oxygen Delivery Room Air 06/09/24 11:10 Reviewed MDM - URI/Sore Throat MDM Narrative Medical decision making narrative: Patient with multiple medical comorbidities. Vague symptoms. Will treat as bronchitis. Clean chest x-ray. Start prednisone, azithromycin for additive anti-inflammatory, bronchodilators. Discharge instructions reviewed with patient, as well as provided in writing per nursing staff. The instructions also include specific and strict return/GO TO THE ER as well as f/u information. All questions have been answered, and the patient deny any further questions with discharge and discharge plan. Some parts of this dictation were generated by voice recognition software and may contain typographical and/or grammatical inaccuracies. Differential Diagnosis Differential diagnosis: Likely upper respiratory infection, sinusitis, viral infection and bronchitis Medical Records Attestation: I reviewed the patient's medical records. Imaging Data Attestation: I personally reviewed and interpreted this imaging study as follows: My impression: negative for acute process Radiologist's impression: [facility] [address] [place] [address] XRay Report Signed Patient: Trudi Maloney : 1985 MR#: [id number] Age: 38 Acct:[id number] Loc: [facility] ADM Date: 06/09/24Attending Dr: Ordering Physician: Ivanna Myers FNP Date of Service: 06/09/24 Procedure(s): XR chest 2V Accession Number(s): [id number] cc: Ivanna Myers FNP; Odilon, Jania RIDLEY~ EXAMINATION: XR chest 2V DATE: 06/09/2024 11:21 INDICATION: Productive cough TECHNIQUE: frontal and lateral views of the chest were obtained. COMPARISON: Chest radiograph dated 09/03/2022 FINDINGS: The lungs remain clear with no focal airspace opacities, pulmonary edema, pleural effusion or pneumothorax. The cardiomediastinal silhouette is normal. Visualized bones and soft tissues are unremarkable. IMPRESSION: 1. No acute cardiopulmonary disease. Reviewed, dictated and finalized at location A. NSION WORK INSTRUCTOR Dictated By: Rolando Fields MD 06/09/24 1139 Signed By: <Electronically signed by Rolando Fields MD in OV> 06/09/24 1146 Discharge Plan Discharge Clinical Impression: Bronchitis Patient Disposition: Home, Self-Care Condition: Stable Instructions: Antibiotic Form, Acute Bronchitis (ED) Additional Instructions: Take medications as prescribed. Follow with primary care provider. Emergency department for new or worse symptoms Patient Language: Hungarian Prescriptions: New azithromycin 250 mg tablet See Rx Instructions .ROUTE .COMPLEX Qty: 6 0RF Rx Instructions: For 250 mg dose pack: take 500 mg today (day 1), then 250 mg for 4 days (days 2-5) prednisone 50 mg tablet 50 mg PO DAILY Qty: 5 0RF albuterol sulfate [Ventolin HFA] 90 mcg/actuation HFA aerosol inhaler 2 puff inhalation QID PRN (Reason: shortness of breath or wheezing) Qty: 8.5 0RF No Action cyclobenzaprine 5 mg tablet See Rx Instructions .ROUTE .COMPLEX Rx Instructions: Rx Liletta 20.4 mcg/24 hrs (8 yrs) 52 mg Intrauterine Device 1 device INTRAUTERINE ONCE Rx Instructions: as a single dose nystatin 100,000 unit/mL suspension 5 ml PO TID PRN (Reason: sore) 7 Days Qty: 120 0RF Rx Instructions: swish and swallow triamcinolone acetonide 0.1 % paste 1 applic dental TID 7 Days Qty: 5 0RF Rx Instructions: use after food and/or drink and/or oral hygiene propafenone [Rythmol SR] 325 mg capsule,extended release 12 hr 325 mg PO Q12H aspirin [Adult Aspirin Regimen] 81 mg tablet,delayed release (DR/EC) 81 mg PO DAILY fludrocortisone 0.1 mg tablet 0.1 mg PO DAILY nitroglycerin 0.3 mg tablet, sublingual 0.3 mg sublingual Q5M PRN (Reason: Chest Pain) Rx Instructions: do not exceed 3 doses per episode isosorbide dinitrate 5 mg Tablet 5 mg PO DAILY PRN (Reason: Angina) Rx Instructions: allow nitrate-free interval of 12-14 hrs per 24-hr period Follow-up/Referrals: Odilon,BULMARO Dykes [Primary Care Provider] - 3 Days Stand Alone Forms: Work/School Release IP Time of Disposition: 12:03
[2024-06-09 11:10] VITALS: BP 126/78; PULSE 88; RESP 18; TEMP 36.9; O2SAT 100
== END 2024-06-09 12:13 | disposition home or self-care (01) ==
PROVIDERS: Emergency Provider Nurse Practitioner Family; PCP Nurse Practitioner
DX: J40 Bronchitis, not specified as acute or chronic (principal); I48.91 Unspecified atrial fibrillation; I25.10 Atherosclerotic heart disease of native coronary artery without angina pectoris; D56.1 Beta thalassemia; Z86.711 Personal history of pulmonary embolism; Z79.82 Long term (current) use of aspirin
CPT/HCPCS: 71046; 99213; G0463

== ENCOUNTER 2024-06-09 17:53 | Observation (INO) | payer MEDICARE, MEDICAID, SELFPAY ==
[2024-06-09] VITALS (9 sets, daily range): BP systolic 115–149; BP diastolic 85–108; PULSE 102–149; RESP 12–16; TEMP 36.3–36.7; O2SAT 100
--- NOTE | ~2024-06-09 | CT_ITS ---
EXAMINATION: CTA chest PE protocol DATE: 06/09/2024 22:21 INDICATION: Chest pain. TECHNIQUE: Computed tomography angiography (CTA) of the chest was performed with 100 mL Omnipaque-350 intravenous contrast timed to evaluate the pulmonary arteries. Coronal maximum intensity projection 3D-reconstructions were created by the technologist. Automated exposure control and iterative reconst ruction technique were employed. The dose-length product was 155.42 mGy-cm. COMPARISON: Chest CT 08/14/2017 FINDINGS: There is mild scarring at the lung apices. No pleural effusion. The heart size is normal. N o pericardial effusion. There is no pulmonary embolus. The bones are unremarkable. IMPRESSION: 1. No pulmonary embolus. Reviewed, dictated and finalized at location A. IFIED ENDOSCOPY TECHNICIAN IMPRESSION: 1. No pulmonary embolus.
--- NOTE | 2024-06-09 17:53 | ECG_ITS ---
Test Date: 2024-06-09 18:02:46 Measurements Intervals [place] Rate: 114 P: 83 RI: 128 QRS: 70 QRSD: 78 T: 7 QT: 308 QTc: 425 Interpretive Statements SINUS TACHYCARDIA NONSPECIFIC ST & T-WAVE ABNORMALITY ABNORMAL RHYTHM ECG No previous ECG available for comparison Electronically Signed On 06-10-2024 18:32:52 DINING ROOM HOSTESS by Torrey Corral M.D.
[2024-06-09 19:24] LABS: Basophils Percent Auto 0.2 % (0.2-1.2); Eosinophils Percent Auto 0.1 % (0-4.4); Hematocrit 35.6 % (37.0-47.0); Hemoglobin 11.3 g/dL (12.0-15.0); Immature Granulocyte Absolute 0.03 K/mm3 (0.00-0.031); Immature Granulocyte Percent A 0.3 % (0-0.5); Immature Platelet Fraction Pct 3.4 % (0.9-11.2); Lymphocytes Absolute Auto 0.53 K/mm3 (0.9-3.2); Mean Corpuscular HGB Conc 31.7 g/dl (32-36); Mean Corpuscular Hemoglobin 20.1 pg (26-34); Mean Corpuscular Volume 63.2 fl (80-100); Mean Platelet Volume 10.8 fl (7.4-10.4); Monocytes Absolute Auto 0.1 K/mm3 (0.1-0.6); Monocytes Percent Auto 0.6 % (2.6-8.5); Neutrophils Absolute Auto 10.1 K/mm3 (1.3-6.7); Neutrophils Percent Auto 93.8 % (45.5-73.1); Platelet Count Result 321 k/mm3 (150-375); Red Blood Count 5.63 M/mm3 (4.2-5.4); Red Cell Distribution Width 14.7 % (11.5-14.5); White Blood Count 10.7 K/mm3 (4.5-10.0)
[2024-06-09 19:33] LABS: Alanine Aminotransferase 23 U/L (6-35); Albumin Level 5.1 g/dL (3.5-5.1); Alkaline Phosphatase 52 U/L (38-126); Anion Gap 7 mmol/L (4-12); Aspartate Amino Transferase 28 U/L (14-36); Bilirubin,Total 0.6 mg/dL (0.2-1.3); Blood Urea Nitrogen 13 mg/dL (7-17); Calcium 10.4 mg/dL (8.4-10.2); Carbon Dioxide 26 mmol/L (22-30); Chloride 105 mmol/L (98-107); Estimated CRCL calculation 81 ml/min; Estimated Glomerular Filt Rate > 60; Glucose 109 mg/dL (65-110); Potassium 4.4 mmol/L (3.4-5.0); Sodium 138 mmol/L (137-145)
[2024-06-09 19:58] LABS: Anisocytosis 1+; Hypochromasia 1+; Macrocytosis 1+ (NORMAL); Ovalocytes 1+; Platelet Estimate Adequate (Adequate); Poikilocytosis 1+; Schistocytes None Seen
--- NOTE | 2024-06-09 20:22 | ECG_ITS ---
Test Date: 2024-06-09 20:26:51 Measurements Intervals [place] Rate: 103 P: 78 MN: 121 QRS: 63 QRSD: 79 T: -31 QT: 346 QTc: 455 Interpretive Statements SINUS TACHYCARDIA WITH OCCASIONAL SUPRAVENTRICULAR PREMATURE COMPLEXES NONSPECIFIC ST & T-WAVE ABNORMALITY Compared to ECG 06/09/2024 18:02:46 No significant changes Electronically Signed On 06-10-2024 18:34:10 COMMUNICATIONS INSTRUCTOR by Torrey Corral M.D.
[2024-06-09] MEDS: LACTATED RINGERS 1,000 ML 999 ML IV CONT (20:45)
[2024-06-09 20:58] LABS: BEDSIDEPREGUCG Negative (Negative)
--- NOTE | 2024-06-09 21:17 | ECG_ITS ---
Test Date: 2024-06-09 21:21:34 Measurements Intervals [place] Rate: 141 P: 0 NH: 0 QRS: 66 QRSD: 84 T: 0 QT: 320 QTc: 492 Interpretive Statements ATRIAL FLUTTER/TACHYCARDIA WITH RAPID VENTRICULAR RESPONSE NONSPECIFIC ST & T-WAVE ABNORMALITY ABNORMAL RHYTHM ECG Compared to ECG 06/09/2024 20:26:51 Sinus tachycardia no longer present T-wave abnormality still present Electronically Signed On 06-10-2024 18:35:09 POOL NURSE by Torrey Corral M.D.
[2024-06-09] MEDS: METOPROLOL TARTRATE INJ 5 MG/5 ML VIAL IV PUSH ×2 (21:25→21:56)
[2024-06-09] MEDS: MORPHINE SULFATE (*CRX) 4 MG/ML INJ IV PUSH (21:28)
[2024-06-09 21:29] LABS: Troponin I < 0.012 ng/mL (0.000-0.034)
--- NOTE | 2024-06-09 21:30 | PC.NURSE ---
Patient's HR kandy to 140s-150s. EKG obtained and read Afib RVR. Patient also complains of chest pain. Shown to EDP Dr. Jaimes who VRBO 5mg Metoprol IVP and 4mg Morphine IVP.
--- NOTE | 2024-06-09 22:23 | ED_ITS ---
HPI - Syncope General Chief Complaint: Syncope Stated Complaint: afib, pneumonia Time Seen by Provider: 06/09/24 20:09 History of Present Illness HPI narrative: 38-year-old female with complex cardiac history including recurrence AFib status post ablation, postural tachycardia, presently on propafenone for rate and rhythm control. Patient presents to the emergency room today with a chief complaint of chest heaviness, difficulty in breathing and feeling tachycardic. She went to urgent care this morning was diagnosed with pneumonia was prescribed steroids, antibiotics and a inhaler. She only took the dose of antibiotics at home but did not do the inhaler after consulting with her cardiology team over at [facility]. Patient states that she had several episodes of syncope and presyncope today that were preceded by weakness and chest pressure. Patient herself states that she has was feeling weak, lethargic and having more chest pressure today. Denies any subjective fever chills, headache, vision change, back pain, abdominal pain. She tells me that she previously had a provoked PE that was after a catheter ablation of her heart with her electrophysiology team. Not presently on any anticoagulation after completing her course of outpatient therapy previously. Denies any trauma or recent injuries or illnesses other than her pneumonia diagnosis this afternoon. Related Data Home Medications ?Medication ?Instructions ?Recorded ?Confirmed ?Last Taken ?Type aspirin 81 mg tablet,delayed 81 mg PO DAILY 07/23/21 03/25/24 01/02/23 09:00 History release (Adult Aspirin Regimen) fludrocortisone 0.1 mg tablet 0.1 mg PO DAILY 07/23/21 03/25/24 Unknown History nitroglycerin 0.3 mg sublingual 0.3 mg sublingual Q5M PRN Chest 07/23/21 03/25/24 Unknown History tablet Pain propafenone 325 mg 325 mg PO Q12H 07/23/21 03/25/24 01/02/23 09:00 History capsule,extended release 12 hr (Rythmol SR) levonorgestrel 20.4 mcg/24 hr (up 1 device intrauterine ONCE 10/16/22 03/25/24 Unknown History to 8 yrs) 52 mg intrauterine device (Liletta) isosorbide dinitrate 5 mg tablet 5 mg PO DAILY PRN Angina 01/02/23 03/25/24 Unknown History cyclobenzaprine 5 mg tablet See Rx Instructions .Route .COMPLEX 01/14/24 03/25/24 Unknown History Allergies Allergy/AdvReac Type Severity Reaction Status Date / Time ciprofloxacin Allergy Severe HIVES/DIFFICULTY Verified 06/09/24 11:01 BREATHING nitrofurantoin Allergy Severe Anaphylactic Verified 06/09/24 11:01 Shock tramadol AdvReac Intermediate Hallucinati Verified 06/09/24 11:01 ng Review of Systems 2 Review of Systems: As reviewed above in HPI [facility] Past Medical History Medical History Beta thalassemia POTS (postural orthostatic tachycardia syndrome) Per patient report Anemia Wrist fracture, right UTI (urinary tract infection) A-fib Pulmonary embolism (~2012) Following sheath placement for cardiac ablation. 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 She lives with her 14-year-old biological daughter and her 11-year-old adopted son. She is recently . She has a small dog. Surrogate decision maker: Bernardo Maloney (ex-) [phone]. She reports that her emergency contact in the computer is listed as her boyfriend but if it were truly a life for situation she would prefer that her make decisions for her. She would not want her father to make decisions for her as he has a senior solutions consultant. Her mother is . Code status: Full code Smoking status: Never smoker Alcohol intake: never Substance use: never Lack of Transportation: No Lack of Food: Never True Current Housing: I Have Housing Concerned About Future Housing: No Difficulty Paying Gas/Electric Bills: No Difficulty Paying for Meds: No Currently Unemployed: No Education: Don't Know Difficulty w/ Childcare or Family Care: No Gender identity (if verbalized by the patient): Female Spiritual care concerns: No Exam 2 Narrative: GENERAL: [Well-appearing, well-nourished, and in no acute distress.] HEAD: [Normocephalic, atraumatic.] EYES: [PERRLA and EOMI.] ENT: Nares clear, no rhinorrhea or epistaxis. Mucous membranes moist. NECK: Supple. CHEST: [Clear to auscultation. No respiratory distress.] HEART: Tachycardic rate and regular rhythm, no murmurs appreciated, S1-S2 heard, normal well-perfused extremities with 2+ pulses throughout ABDOMEN: [Soft, nondistended], [nontender], [No rigidity or guarding] EXTREMITIES: Normal range of motion. [No edema.] SKIN: Warm, dry, no rash. NEURO: [No focal deficits]. Alert and oriented [x3.] PSYCH: [Normal mood and affect.] Course Vital Signs Vital signs: Vital Signs Temperature 36.6 C 06/09/24 18:08 Pulse Rate 111 H 06/09/24 18:08 Respiratory Rate 16 06/09/24 18:08 Blood Pressure 133/85 06/09/24 18:08 Pulse Oximetry 100 06/09/24 18:08 Temperature 36.7 C 06/09/24 23:31 Pulse Rate 76 06/10/24 03:04 Respiratory Rate 13 06/10/24 02:30 Blood Pressure 118/69 06/10/24 02:30 Pulse Oximetry 99 06/10/24 02:30 Oxygen Delivery Room Air 06/09/24 20:05 MDM - Syncope MDM Narrative Medical decision making narrative: 38-year-old female with complex cardiac is current atrial fibrillation status post ablation, atrial flutter on propafenone, history of PE that was provoked presently not on anticoagulation. Recently diagnosed with pneumonia this afternoon and taking her 1st course of antibiotics. She presents today with generalized malaise fatigue, chest pain shortness a breath. She otherwise appears well and is awake alert oriented but tells me that she had several episodes of syncope or presyncope at home leading her to seek help today in the emergency department. She does have a very tachycardic but regular rhythm pulse with warm well-perfused extremities. No fever, hypoxia, respirations within normal limits, blood pressure within normal limits. She is showing either atrial fibrillation or atrial flutter on the monitor occasion with heart rate occasionally 146+ range but then rapidly converted status sinus rhythm and sinus tachycardia in the low 100s without intervention. Blood was obtained including a cardiac workup with serial troponins, EKG, chest x-ray. Electrolytes were ordered and she was given a fluid bolus for hydration. Nurse brought to my attention that patient had a sustained episode of atrial flutter with blood pressure. She was started on Toprol at this time 5 mg IV push x2 which did bring her down into a regular sinus tachycardia at this time with no effect on her blood pressure. She was given morphine for her chest pain and pressure with improvement on reassessment. At this time a CT angiography of her chest was ordered for further delineation given that she does have a history of a thrombotic event and now tachycardic with recurrence for AFib. Patient was re-evaluated multiple times and had went in and out of atrial tachycardia/flutter into normal sinus rhythm recurring the on the monitor any pain when I am assessing her at bedside. She had improvement in rate control after the metoprolol. We will start her on her home dose of propafenone. Workup shows a slight leukocytosis of 10.7 likely reactive, hemoglobin 11.3 and stable. Normal platelets. Electrolyte panel within normal limits, normal renal function panel. Calcium slightly elevated but just upper limit of normal. Troponin negative x2 with no ongoing ischemic damage. LFTs normal. Negative test. CT angiography of the chest was ordered this time to feathered loose today patient's chest pain difficulty breathing and irregular heart rates with switching between sinus rhythm and atrial tachycardia/flutter. No PE was identified there is no effusions, pneumothorax or pneumonia per my interpretation of the CT imaging. No pericardial effusions noted. Confirmed by Radiology. Patient did have several episodes of chest discomfort which did get complete symptomatic resolution after given her combination of Dilaudid and Toradol. She was provided fluid hydration and started on maintenance infusion at this time. At this time given her significant cardiac history and irregular heart rate requiring rate-controlling medications including metoprolol and propafenone and I believe she requires admission to the hospital at this time for further evaluation and care. Patient agreeable to plan at this time. I discussed the case with Dr. Ceja the hospitalist over the phone and we will honor patient's imaging studies, heart rate elevations and control with rate control medications, plan of care going forward for admission and Cardiology evaluation not emergently. Patient was accepted to the intermediate care unit for observation admission. Placed I placed orders for bedside echocardiogram and Cardiology consult placed in the EMR. Admit orders placed and bed assigned. Medical Records Attestation: I reviewed the patient's medical records. Lab Data Attestation: I reviewed the patient's lab results. 06/09/24 19:15 06/09/24 19:15 Labs: Lab Results 06/09/24 06/09/24 06/09/24 Range/Units 19:15 20:49 20:56 WBC 10.7 H (4.5-10.0) K/mm3 RBC 5.63 H (4.2-5.4) M/mm3 Hgb 11.3 L (12.0-15.0) g/dL Hct 35.6 L (37.0-47.0) % MCV 63.2 L (80-100) fl MCH 20.1 L (26-34) pg MCHC 31.7 L (32-36) g/dl RDW 14.7 H (11.5-14.5) % Plt Count 321 (150-375) k/mm3 MPV 10.8 H (7.4-10.4) fl Immature Gran % (Auto) 0.3 (0-0.5) % Neut % (Auto) 93.8 H (45.5-73.1) % Lymph % (Auto) 5.0 L (18.3-44.2) % [place] % (Auto) 0.6 L (2.6-8.5) % Eos % (Auto) 0.1 (0-4.4) % Baso % (Auto) 0.2 (0.2-1.2) % Lymph # (Auto) 0.53 L (0.9-3.2) K/mm3 [place] # (Auto) 0.1 (0.1-0.6) K/mm3 Eos # (Auto) 0.0 (0-0.3) K/mm3 Baso # (Auto) 0.0 (0.0-0.1) K/mm3 Abs Immat Gran (auto) 0.03 (0.00-0.031) K/mm3 Absolute Neuts (auto) 10.1 H (1.3-6.7) K/mm3 Absolute Nucleated RBC 0.000 (0.0-0.012) K/mm3 Nucleated RBC % 0.0 (0.0-0.2) % Platelet Estimate Adequate (Adequate) % Immature Plt Fraction 3.4 (0.9-11.2) % Hypochromasia 1+ Poikilocytosis 1+ Anisocytosis 1+ Macrocytosis 1+ (NORMAL) Ovalocytes 1+ Schistocytes None seen Sodium 138 (137-145) mmol/L Potassium 4.4 (3.4-5.0) mmol/L Chloride 105 (98-107) mmol/L Carbon Dioxide 26 (22-30) mmol/L Anion Gap 7 (4-12) mmol/L BUN 13 D (7-17) mg/dL Creatinine 0.70 (0.7-1.0) mg/dL Estim Creat Clear Calc 81 ml/min Estimated GFR > 60 (59 - ) Glucose 109 (65-110) mg/dL Calcium 10.4 H (8.4-10.2) mg/dL Total Bilirubin 0.6 (0.2-1.3) mg/dL AST 28 (14-36) U/L ALT 23 (6-35) U/L Alkaline Phosphatase 52 (38-126) U/L Troponin I < 0.012 (0.000-0.034) ng/mL Total Protein 9.0 H (6.3-8.2) g/dL Albumin 5.1 (3.5-5.1) g/dL POC Urine HCG, Qual Negative (Negative) 06/09/24 Range/Units 23:58 WBC (4.5-10.0) K/mm3 RBC (4.2-5.4) M/mm3 Hgb (12.0-15.0) g/dL Hct (37.0-47.0) % MCV (80-100) fl MCH (26-34) pg MCHC (32-36) g/dl RDW (11.5-14.5) % Plt Count (150-375) k/mm3 MPV (7.4-10.4) fl Immature Gran % (Auto) (0-0.5) % Neut % (Auto) (45.5-73.1) % Lymph % (Auto) (18.3-44.2) % Lincoln % (Auto) (2.6-8.5) % Eos % (Auto) (0-4.4) % Baso % (Auto) (0.2-1.2) % Lymph # (Auto) (0.9-3.2) K/mm3 [place] # (Auto) (0.1-0.6) K/mm3 Eos # (Auto) (0-0.3) K/mm3 Baso # (Auto) (0.0-0.1) K/mm3 Abs Immat Gran (auto) (0.00-0.031) K/mm3 Absolute Neuts (auto) (1.3-6.7) K/mm3 Absolute Nucleated RBC (0.0-0.012) K/mm3 Nucleated RBC % (0.0-0.2) % Platelet Estimate (Adequate) % Immature Plt Fraction (0.9-11.2) % Hypochromasia Poikilocytosis Anisocytosis Macrocytosis (NORMAL) Ovalocytes Schistocytes Sodium (137-145) mmol/L Potassium (3.4-5.0) mmol/L Chloride (98-107) mmol/L Carbon Dioxide (22-30) mmol/L Anion Gap (4-12) mmol/L BUN (7-17) mg/dL Creatinine (0.7-1.0) mg/dL Estim Creat Clear Calc ml/min Estimated GFR (59 - ) Glucose (65-110) mg/dL Calcium (8.4-10.2) mg/dL Total Bilirubin (0.2-1.3) mg/dL AST (14-36) U/L ALT (6-35) U/L Alkaline Phosphatase (38-126) U/L Troponin I < 0.012 (0.000-0.034) ng/mL Total Protein (6.3-8.2) g/dL Albumin (3.5-5.1) g/dL POC Urine HCG, Qual (Negative) Imaging Data Attestation: I personally reviewed and interpreted this imaging study as follows: My impression: Impressions Chest CTA 06/09/24 22:23 IMPRESSION: 1. No pulmonary embolus. ECG Data EKG #1: Attestation: I personally reviewed and interpreted this ECG as follows: ECG completion date: 06/09/24 ECG completion time: 18:02 Prior ECG tracings: not available for review Interpretation: Sinus tachycardia, no signs of ST segment elevations, depressions or inversions. No previous EKG for comparison, regular rhythm, regular axis, QTC 425, QRS 98, FL 128. Overall sinus tachycardia with no prior baseline for comparison EKG #2: Attestation: I personally reviewed and interpreted this ECG as follows: ECG completion date: 06/09/24 ECG completion time: 21:21 Prior ECG tracings: available for review Interpretation: Atrial flutter/atrial tachycardia, difficult to a identify individual P-waves in the appear to be buried in the beginning of the QRS complex versus end of the ST segments from previous beat. Appears to have a mostly regular rhythm and tachycardia that likely is atrial tachycardia or flutter. No ST segment elevations, depressions or signs of acute ischemic changes but compared to previous EKG now in a rapid ventricular response flutter Critical Care Time Critical Care Time Critical Care Time: Yes Total Critical Care Time: 35 Discharge Plan Discharge Clinical Impression: Cardiac related syncope, Atrial flutter with rapid ventricular response, Chest pain Patient Disposition: Still a Patient Condition: Stable Time of Disposition: 01:06 Quality HEART score for chest pain patients History: moderately suspicious ECG: non specific repolarization disturbance/LBTB/PM Age: < or = to 45 years Risk factors: 1 or 2 risk factors Troponin: < or = to 1x normal limit Heart score: 3
[2024-06-10] VITALS (19 sets, daily range): BP systolic 118–137; BP diastolic 69–98; PULSE 68–130; RESP 13–20; TEMP 36.4–36.9; O2SAT 99–100; BMI 18.7; BMI 18.8
--- NOTE | 2024-06-10 00:03 | ECG_ITS ---
Test Date: 2024-06-10 00:03:39 Measurements Intervals [place] Rate: 81 P: 80 NV: 134 QRS: 67 QRSD: 78 T: 61 QT: 361 QTc: 421 Interpretive Statements SINUS RHYTHM Compared to ECG 06/09/2024 21:21:34 Atrial flutter no longer present T-wave abnormality no longer present Electronically Signed On 06-10-2024 18:38:32 SHORT FILLER BUNCH MACHINE OPERATOR by Torrey Corral M.D.
[2024-06-10] MEDS: KETOROLAC 15 MG/ML VIAL (*BKC) IV PUSH (00:18)
[2024-06-10] MEDS: HYDROmorphone HCL INJ (*CRX) 1 MG/ML SYR 0.5 MG IV PUSH (00:18)
[2024-06-10 00:34] LABS: Troponin I < 0.012 ng/mL (0.000-0.034)
--- NOTE | 2024-06-10 01:04 | P.HP_ITS ---
H&P: HPI History of Present Illness Date/Time: 06/10/24 01:04 Chief Complaint: Syncope Narrative: This is a 38-year-old female with past medical history significant for POTS, a flutter, AFib, ablation. Patient presents to the emergency room after having syncopal episode. Patient has been having a persistent cough for the last 2 weeks nonproductive, denies any fevers rigors or chills, has been using [id number] cough medicine patient presented to the urgent care where she was prescribed Z-Prem and prednisone for presumptive pneumonia. Patient has had poor appetite as well. Patient started having episodes of palpitations and chest pain, lightheadedness. Preliminary workup has been essentially nonrevealing a CT angiogram of the chest ruled out acute pulmonary embolism. In emergency room patient was found to have A. fib, A. flutter. Patient has been admitted for further evaluation management and treatment. EXAMINATION: XR chest 2V DATE: 06/09/2024 11:21 INDICATION: Productive cough TECHNIQUE: frontal and lateral views of the chest were obtained. COMPARISON: Chest radiograph dated 09/03/2022 FINDINGS: The lungs remain clear with no focal airspace opacities, pulmonary edema, pleural effusion or pneumothorax. The cardiomediastinal silhouette is normal. Visualized bones and soft tissues are unremarkable. IMPRESSION: 1. No acute cardiopulmonary disease. EXAMINATION: CTA chest PE protocol DATE: 06/09/2024 22:21 INDICATION: Chest pain. TECHNIQUE: Computed tomography angiography (CTA) of the chest was performed with 100 mL Omnipaque-350 intravenous contrast timed to evaluate the pulmonary arteries. Coronal maximum intensity projection 3D-reconstructions were created by the technologist. Automated exposure control and iterative reconstruction t echnique were employed. The dose-length product was 155.42 mGy-cm. COMPARISON: Chest CT 08/14/2017 FINDINGS: There is mild scarring at the lung apices. No pleural effusion. The heart size is normal. No pericardial effusion. There is no pulmonary embolus. The bones are unremarkable. IMPRESSION: 1. No pulmonary embolus. Review of Systems Review of Systems: Syncope, chest pain, palpitations. [facility] Past Medical History Medical History Beta thalassemia POTS (postural orthostatic tachycardia syndrome) Per patient report Anemia Wrist fracture, right UTI (urinary tract infection) A-fib Pulmonary embolism (~2012) Following sheath placement for cardiac ablation. 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 She lives with her 14-year-old biological daughter and her 11-year-old adopted son. She is recently . She has a small dog. Surrogate decision maker: Bernardo Maloney (ex-) [phone]. She reports that her emergency contact in the computer is listed as her boyfriend but if it were truly a life for situation she would prefer that her make decisions for her. She would not want her father to make decisions for her as he has a journeyman machinist. Her mother is . Code status: Full code Smoking status: Never smoker Alcohol intake: never Substance use: never Lack of Transportation: No Lack of Food: Never True Current Housing: I Have Housing Concerned About Future Housing: No Difficulty Paying Gas/Electric Bills: No Difficulty Paying for Meds: No Currently Unemployed: No Education: Don't Know Difficulty w/ Childcare or Family Care: No Gender identity (if verbalized by the patient): Female Spiritual care concerns: No Meds Home Medications and Allergies Home Medications ?Medication ?Instructions ?Recorded ?Confirmed ?Type aspirin 81 mg tablet,delayed 81 mg PO DAILY 07/23/21 03/25/24 History release (Adult Aspirin Regimen) fludrocortisone 0.1 mg tablet 0.1 mg PO DAILY 07/23/21 03/25/24 History nitroglycerin 0.3 mg sublingual 0.3 mg sublingual Q5M PRN Chest 07/23/21 03/25/24 History tablet Pain propafenone 325 mg 325 mg PO Q12H 07/23/21 03/25/24 History capsule,extended release 12 hr (Rythmol SR) levonorgestrel 20.4 mcg/24 hr (up 1 device intrauterine ONCE 10/16/22 03/25/24 History to 8 yrs) 52 mg intrauterine device (Liletta) isosorbide dinitrate 5 mg tablet 5 mg PO DAILY PRN Angina 01/02/23 03/25/24 History cyclobenzaprine 5 mg tablet See Rx Instructions .Route .COMPLEX 01/14/24 03/25/24 History nystatin 100,000 unit/mL oral 5 ml PO TID PRN sore 7 days #120 mL 03/03/24 03/25/24 Rx suspension triamcinolone acetonide 0.1 % 1 applic dental TID 7 days #5 grams 03/03/24 03/25/24 Rx dental paste albuterol sulfate 90 mcg/actuation 2 puff inhalation QID PRN 06/09/24 Rx aerosol inhaler (Ventolin HFA) shortness of breath or wheezing #8.5 grams azithromycin 250 mg tablet See Rx Instructions PO .COMPLEX #6 06/09/24 Rx tabs prednisone 50 mg tablet 50 mg PO DAILY #5 tabs 06/09/24 Rx Allergies Allergy/AdvReac Type Severity Reaction Status Date / Time ciprofloxacin Allergy Severe HIVES/DIFFICULTY Verified 06/09/24 11:01 BREATHING nitrofurantoin Allergy Severe Anaphylactic Verified 06/09/24 11:01 Shock tramadol AdvReac Intermediate Hallucinati Verified 06/09/24 11:01 ng Vital Signs Vital Signs - 24 hr 06/09/24 18:08 06/09/24 19:59 06/09/24 19:59 Temperature 97.8 F 97.4 F L Pulse Rate 111 H 102 H 105 H Respiratory Rate 16 12 Blood Pressure 133/85 143/101 H Pulse Oximetry 100 100 Oxygen Delivery 06/09/24 20:00 06/09/24 20:05 06/09/24 21:25 Temperature Pulse Rate 143 H Respiratory Rate Blood Pressure Pulse Oximetry 100 100 Oxygen Delivery Room Air Room Air 06/09/24 21:30 06/09/24 21:30 06/09/24 21:30 Temperature 98.1 F 98.1 F Pulse Rate 149 H 149 H 136 H Respiratory Rate 12 12 Blood Pressure 149/108 H 149/108 H Pulse Oximetry 100 100 Oxygen Delivery 06/09/24 21:56 06/09/24 23:01 06/09/24 23:31 Temperature 98.1 F Pulse Rate 141 H 135 H 135 H Respiratory Rate 12 15 Blood Pressure 115/90 115/89 Pulse Oximetry Oxygen Delivery 06/10/24 00:21 Temperature Pulse Rate 90 Respiratory Rate 19 Blood Pressure 137/98 H Pulse Oximetry 100 Oxygen Delivery Exam Narrative: Laying in a stretcher Const: General: comfortable, no acute distress, well developed, alert, awake, ill appearing chronically and underweight Nutritional Appearance: underweight Orientation/consciousness: patient oriented x3 HENMT: Head: normal to inspection, normocephalic and atraumatic Ears: hearing grossly normal bilaterally Face/Nose/Sinus: normal facial exam Face and sinus: normal facial exam Eyes: General: appearance normal, both eyes and all related structures Pupils: Equal, round and reactive pupils present EOM: EOMs intact bilaterally Neck: Neck: full ROM, no lymphadenopathy and no JVD Thyroid: thyroid normal Lymphatic: no lymphadenopathy noted Resp: Effort & Inspection: normal respiratory effort and able to speak in complete sentences Auscultation: clear to auscultation bilaterally Cardio: Jugular venous distension: no JVD Rate: regular rate Rhythm: regular rhythm Heart sounds: S1 normal heart sound present and S2 normal heart sound present GI: GI Palp: Yes Soft to palpation and Yes No hepatosplenomegaly present : General: Yes deferred Skin: Rashes: no rashes Wounds: no wounds Neuro: General: patient oriented x3 and CN's II-XI intact bilaterally Cranial nerves: Yes CN's II-XII intact bilaterally and Yes Equal, round and reactive pupils present Cognition (Neuro): normal cognition Speech: normal speech Gait exam (Neuro): Normal gait present Motor exam (neuro): 5/5 motor strength present throughout Extrem: General: normal to inspection, full ROM, no joint enlargement and no pedal edema H&P: Results Labs Labs: Short CBC 06/09/24 Range/Units 19:15 WBC 10.7 H (4.5-10.0) K/mm3 Hgb 11.3 L (12.0-15.0) g/dL Hct 35.6 L (37.0-47.0) % Plt Count 321 (150-375) k/mm3 [facility] 06/09/24 19:15 Sodium 138 Potassium 4.4 Chloride 105 Carbon Dioxide 26 BUN 13 D Creatinine 0.70 Glucose 109 Calcium 10.4 H Cardiac Enzymes 06/09/24 06/09/24 Range/Units 20:49 23:58 Troponin I < 0.012 < 0.012 (0.000-0.034) ng/mL Liver Function 06/09/24 Range/Units 19:15 Total Bilirubin 0.6 (0.2-1.3) mg/dL AST 28 (14-36) U/L ALT 23 (6-35) U/L Alkaline Phosphatase 52 (38-126) U/L Albumin 5.1 (3.5-5.1) g/dL Assessment and Plan Assessment and plan (1) Atrial flutter with rapid ventricular response: Code(s): I48.92 - Unspecified atrial flutter Status: Acute Assessment and Plan: Admit to IMU Restart home meds Cardiology consult (2) Chest pain: Code(s): R07.9 - Chest pain, unspecified Status: Acute Assessment and Plan: Morphine and nitro as needed (3) POTS (postural orthostatic tachycardia syndrome): Code(s): G90.A - Postural orthostatic tachycardia syndrome [POTS] Status: Acute Assessment and Plan: Supportive care (4) Beta thalassemia: Code(s): D56.1 - Beta thalassemia Status: Acute Assessment and Plan: Follow-up in outpatient setting Hospitalist [facility] Advance Care Plan I have confirmed that the patient's Advanced Care Plan is present, code status is documented, or surrogate decision maker is listed in patient medical record.: Yes Medication Reconciliation I have utilized all available resources to obtain, update and review the patients current medications (includes all prescriptions, OTC, herbals, cannabis, and nutritional supplements).: Yes
[2024-06-10] MEDS: PROPAFENONE HCL 225 MG PO ×3 (03:04→20:27)
--- NOTE | 2024-06-10 04:10 | ADMGEN ---
This patient, Trudi Maloney, was admitted to IMU Room 201-01. Patient/family oriented to hospital policies and general routines including ID bracelet, bed and alarms, visiting hours, pain management, procedures, bathroom and other care routines, personal items, smoking policy, room service/diet, and visiting hours. Information on how to activate the Rapid Response Team has been discussed. Patient/Family are encouraged to report perceived risks to care and to ask questions if they do not understand what they are told or what they should do.
[2024-06-10] MEDS: MORPHINE SULFATE (*CRX) 2 MG/ML INJ IV PUSH ×5 (04:45→20:27)
[2024-06-10] MEDS: LACTATED RINGERS 1,000 ML 125 ML IV CONT ×3 (05:18→20:44)
--- NOTE | 2024-06-10 07:09 | PM.IMPN ---
Progress Note: A&P Assessment and Plan (1) Chest pain: Code(s): R07.9 - Chest pain, unspecified Status: Acute Assessment and Plan: nitroglycerin prn flexeril prn (2) Atrial flutter with rapid ventricular response: Code(s): I48.92 - Unspecified atrial flutter Status: Acute Assessment and Plan: Takes propafanone 325mg BID. Only have 225mg tabs on formulary --Continue 225mg BID, additional dose if rate not controlled. Will schedule TID tomorrow if not discharged --Cardiology consulted, patient declined beta blockers per notes (3) Dizziness: Code(s): R42 - Dizziness and giddiness Status: Acute Assessment and Plan: Positional dizziness, in the setting of aflutter. Also recent possibly viral illness --Orthostatic vital signs --meclizine prn (4) Cough: Code(s): R05.9 - Cough, unspecified Status: Acute Assessment and Plan: Tessalon perles prn Trial of flovent. Avoiding albuterol 2/2 tachycardia Stop oral steroids Recently started azithromycin, recheck QTc in AM, 421 today Check BNP in AM Time Spent With Patient Time: 58 minutes Subjective Date/time seen: 06/10/24 11:50 Interval history: Dizzy when sitting up. Chest pain improved but was severe this morning. viral panel negative for flu/covid/rsv Hospital Course: 38 y/o aflutter, afib s/p ablation, hx PE, admitted after a syncopal episode. Reports cough x2 weeks. In afib/flutter in the ED, HR 130's, On 4L O2. CT ruled out PE. Cardiology consulted. Mild anemia 11.3/35.6. Reports cough since . Recently started azithromycin. Exam Narrative: General - Awake and alert. No acute distress Eyes - PERRLA, EOM intact ENT - No thrush, No erythema Neck - No noticeable or palpable swelling Lymph Nodes - No lymphadenopathy Cardiovascular - RRR no m/r/g, no JVD Lungs: Clear to auscultation, No wheezing, use of accessory muscles Skin - Skin warm and dry, no wounds or rashes Abdomen - Normal bowel sounds, abdomen soft and nontender Extremities - No edema, cyanosis or clubbing Musculoskeletal - 5/5 strength, normal range of motion, no swollen or erythematous joints. Neurological ? Alert and oriented x 3, CN 2-12 grossly intact. Psych: Normal mood and affect Objective Data Vital Signs Vital Signs: Vital Signs - 24 hr 06/09/24 18:08 06/09/24 19:59 06/09/24 19:59 Temperature 97.8 F 97.4 F L Pulse Rate 111 H 102 H 105 H Respiratory Rate 16 12 Blood Pressure 133/85 143/101 H Pulse Oximetry 100 100 Oxygen Delivery Oxygen Flow Rate 06/09/24 20:00 06/09/24 20:05 06/09/24 21:25 Temperature Pulse Rate 143 H Respiratory Rate Blood Pressure Pulse Oximetry 100 100 Oxygen Delivery Room Air Room Air Oxygen Flow Rate 06/09/24 21:30 06/09/24 21:30 06/09/24 21:30 Temperature 98.1 F 98.1 F Pulse Rate 149 H 149 H 136 H Respiratory Rate 12 12 Blood Pressure 149/108 H 149/108 H Pulse Oximetry 100 100 Oxygen Delivery Oxygen Flow Rate 06/09/24 21:56 06/09/24 23:01 06/09/24 23:31 Temperature 98.1 F Pulse Rate 141 H 135 H 135 H Respiratory Rate 12 15 Blood Pressure 115/90 115/89 Pulse Oximetry Oxygen Delivery Oxygen Flow Rate 06/10/24 00:21 06/10/24 02:30 06/10/24 03:04 Temperature Pulse Rate 90 84 76 Respiratory Rate 19 13 Blood Pressure 137/98 H 118/69 Pulse Oximetry 100 99 Oxygen Delivery Oxygen Flow Rate 06/10/24 04:10 06/10/24 05:34 Temperature 98.4 F Pulse Rate 130 H Respiratory Rate 16 Blood Pressure 132/92 H Pulse Oximetry 100 Oxygen Delivery Nasal Cannula Oxygen Flow Rate 4 Intake/Output Intake/Output: Intake & Output 06/07/24 06/08/24 06/09/24 06/10/24 23:59 23:59 23:59 23:59 Intake Total 1000 Balance 1000 Meds/Results Medications: Active Medications Generic Name Dose Route Start Last Admin Trade Name Freq PRN Reason Stop Dose Admin Acetaminophen 650 mg 06/10/24 01:15 Acetaminophen 325 Mg Tablet PO Q4H PRN Mild Pain (1-3) or Fever Lactated Ringer's 1,000 mls @ 125 mls/hr 06/10/24 01:10 06/10/24 05:18 Lr - Lactated Ringers Iv IV CONT 125 mls/hr .Q8H ROCAEL Administration Ketorolac Tromethamine 15 mg 06/10/24 01:06 Ketorolac 30 Mg/Ml Vial (*Bkc) IV PUSH 06/15/24 01:05 Q6H PRN Pain Rated 4-6 Morphine Sulfate 2 mg 06/10/24 05:16 06/10/24 04:45 Morphine Sulfate (*Crx) 2 Mg/Ml Inj IV PUSH 2 mg Q3H PRN Administration Pain Rated 7-10 Ondansetron HCl 4 mg 06/10/24 01:06 Ondansetron Inj 4 Mg/2 Ml Vial IV PUSH Q4H PRN Nausea Perflutren Lipid Microsphere 0 ml 06/10/24 01:06 Perflutren Lipid Microspheres 1.5 Ml Vial Diluted To 10 Ml Total Volume IV PUSH 06/13/24 01:06 ONCE PRN adequate visualization Protocol Radiology Results: ITS Impressions Chest CTA 06/09/24 22:23 IMPRESSION: 1. No pulmonary embolus. Labs Labs: Laboratory Results - last 24 hr 06/09/24 06/09/24 06/09/24 19:15 20:49 20:56 WBC 10.7 H RBC 5.63 H Hgb 11.3 L Hct 35.6 L MCV 63.2 L MCH 20.1 L MCHC 31.7 L RDW 14.7 H Plt Count 321 MPV 10.8 H Immature Gran % (Auto) 0.3 Neut % (Auto) 93.8 H Lymph % (Auto) 5.[address] [facility] % (Auto) 0.6 L Eos % (Auto) 0.1 Baso % (Auto) 0.2 Lymph # (Auto) 0.[address] [facility] # (Auto) 0.1 Eos # (Auto) 0.0 Baso # (Auto) 0.0 Abs Immat Gran (auto) 0.03 Absolute Neuts (auto) 10.1 H Absolute Nucleated RBC 0.000 Nucleated RBC % 0.0 Platelet Estimate Adequate % Immature Plt Fraction 3.4 Hypochromasia 1+ Poikilocytosis 1+ Anisocytosis 1+ Macrocytosis 1+ Ovalocytes 1+ Schistocytes None seen Sodium 138 Potassium 4.4 Chloride 105 Carbon Dioxide 26 Anion Gap 7 BUN 13 D Creatinine 0.70 Estim Creat Clear Calc 81 Estimated GFR > 60 Glucose 109 Calcium 10.4 H Total Bilirubin 0.6 AST 28 ALT 23 Alkaline Phosphatase 52 Troponin I < 0.012 Total Protein 9.0 H Albumin 5.1 POC Urine HCG, Qual Negative 06/09/24 23:58 WBC RBC Hgb Hct MCV MCH MCHC RDW Plt Count MPV Immature Gran % (Auto) Neut % (Auto) Lymph % (Auto) [facility] % (Auto) Eos % (Auto) Baso % (Auto) Lymph # (Auto) [facility] # (Auto) Eos # (Auto) Baso # (Auto) Abs Immat Gran (auto) Absolute Neuts (auto) Absolute Nucleated RBC Nucleated RBC % Platelet Estimate % Immature Plt Fraction Hypochromasia Poikilocytosis Anisocytosis Macrocytosis Ovalocytes Schistocytes Sodium Potassium Chloride Carbon Dioxide Anion Gap BUN Creatinine Estim Creat Clear Calc Estimated GFR Glucose Calcium Total Bilirubin AST ALT Alkaline Phosphatase Troponin I < 0.012 Total Protein Albumin POC Urine HCG, Qual Quality VTE Prophylaxis VTE prophylaxis: pharmacologic ordered Hospitalist [facility] Advance Care Plan I have confirmed that the patient's Advanced Care Plan is present, code status is documented, or surrogate decision maker is listed in patient medical record.: Yes Medication Reconciliation I have utilized all available resources to obtain, update and review the patients current medications (includes all prescriptions, OTC, herbals, cannabis, and nutritional supplements).: Yes
[2024-06-10 07:42] LABS: Hematocrit 32.5 % (37.0-47.0); Hemoglobin 10.2 g/dL (12.0-15.0); Immature Platelet Fraction Pct 3.1 % (0.9-11.2); Mean Corpuscular HGB Conc 31.4 g/dl (32-36); Mean Corpuscular Volume 63.6 fl (80-100); Mean Platelet Volume 11.5 fl (7.4-10.4); Platelet Count Result 287 k/mm3 (150-375); Red Blood Count 5.11 M/mm3 (4.2-5.4); Red Cell Distribution Width 14.6 % (11.5-14.5); White Blood Count 10.9 K/mm3 (4.5-10.0)
[2024-06-10 07:50] LABS: Anion Gap 7 mmol/L (4-12); Blood Urea Nitrogen 13 mg/dL (7-17); Calcium 9.9 mg/dL (8.4-10.2); Carbon Dioxide 25 mmol/L (22-30); Chloride 105 mmol/L (98-107); Estimated CRCL calculation 82 ml/min; Estimated Glomerular Filt Rate > 60; Glucose 95 mg/dL (65-110); Phosphorus 3.8 mg/dL (2.5-4.5); Potassium 3.8 mmol/L (3.4-5.0); Sodium 137 mmol/L (137-145)
[2024-06-10 08:05] LABS: Troponin I < 0.012 ng/mL (0.000-0.034)
[2024-06-10] MEDS: KETOROLAC 30 MG/ML VIAL (*BKC) 15 MG IV PUSH ×2 (13:24→20:41)
--- NOTE | 2024-06-10 15:00 | P.CONCA_ITS ---
Assessment and Plan Assessment and plan (1) Atrial flutter with rapid ventricular response: Code(s): I48.92 - Unspecified atrial flutter Status: Acute Plan 1.PAF/Aflutter CHADSVASC 1 - Continue propafenone - Declines to take BB - Not on AC, CHADSVASC 1 - Can follow-up with her nuclear equipment research engineer and discuss ablation Cardiology will sign off. Please call us if there are any questions or concerns History of Present Illness History of Present Illness Consult date/time: 06/10/24 15:00 Reason For Visit: Atrial flutter/atrial tachycardia, Syncope Narrative: 38 y/o aflutter, afib s/p ablation on propafenone, hx PE, admitted after a syncopal episode. Reports cough x2 weeks. In afib/flutter in the ED, HR 130's, On 4L O2. CT ruled out PE. Cardiology consulted. Mild anemia 11.3/35.6. Had atypical CP when she was in RVR negative trops No dynamic ST-T wave changes Cardiology consulted for Afib Se sis currently in NSR. Symptomatic with Afib and can tell ON propafenone PMFSH Past Medical History Medical History Beta thalassemia POTS (postural orthostatic tachycardia syndrome) Per patient report Anemia Wrist fracture, right UTI (urinary tract infection) A-fib Pulmonary embolism (~2012) Following sheath placement for cardiac ablation. 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 She lives with her 14-year-old biological daughter and her 11-year-old adopted son. She is recently . She has a small dog. Surrogate decision maker: Bernardo Maloney (ex-) [phone]. She reports that her emergency contact in the computer is listed as her boyfriend but if it were truly a life for situation she would prefer that her make decisions for her. She would not want her father to make decisions for her as he has a sueding machine operator. Her mother is . Code status: Full code Smoking status: Never smoker Alcohol intake: never Substance use: never Do You Feel Safe in your Home?: No Lack of Transportation: No Lack of Food: Never True Current Housing: I Have Housing Concerned About Future Housing: No Difficulty Paying Gas/Electric Bills: No Difficulty Paying for Meds: No Currently Unemployed: No Education: Master's Degree or Higher Difficulty w/ Childcare or Family Care: No Gender identity (if verbalized by the patient): Female Spiritual care concerns: No Meds Home Medications and Allergies Home Medications ?Medication ?Instructions ?Recorded ?Confirmed ?Type aspirin 81 mg tablet,delayed 81 mg PO DAILY 07/23/21 03/25/24 History release (Adult Aspirin Regimen) fludrocortisone 0.1 mg tablet 0.1 mg PO DAILY 07/23/21 03/25/24 History nitroglycerin 0.3 mg sublingual 0.3 mg sublingual Q5M PRN Chest 07/23/21 03/25/24 History tablet Pain propafenone 325 mg 325 mg PO Q12H 07/23/21 03/25/24 History capsule,extended release 12 hr (Rythmol SR) levonorgestrel 20.4 mcg/24 hr (up 1 device intrauterine ONCE 10/16/22 03/25/24 History to 8 yrs) 52 mg intrauterine device (Liletta) isosorbide dinitrate 5 mg tablet 5 mg PO DAILY PRN Angina 01/02/23 03/25/24 History cyclobenzaprine 5 mg tablet See Rx Instructions .Route .COMPLEX 01/14/24 03/25/24 History nystatin 100,000 unit/mL oral 5 ml PO TID PRN sore 7 days #120 mL 03/03/24 03/25/24 Rx suspension triamcinolone acetonide 0.1 % 1 applic dental TID 7 days #5 grams 03/03/24 03/25/24 Rx dental paste albuterol sulfate 90 mcg/actuation 2 puff inhalation QID PRN 12/12/24 Rx aerosol inhaler (Ventolin HFA) shortness of breath or wheezing #8.5 grams azithromycin 250 mg tablet See Rx Instructions PO .COMPLEX #6 06/09/24 Rx tabs prednisone 50 mg tablet 50 mg PO DAILY #5 tabs 06/09/24 Rx Allergies Allergy/AdvReac Type Severity Reaction Status Date / Time ciprofloxacin Allergy Severe HIVES/DIFFICULTY Verified 06/09/24 11:01 BREATHING nitrofurantoin Allergy Severe Anaphylactic Verified 06/09/24 11:01 Shock tramadol AdvReac Intermediate Hallucinati Verified 06/09/24 11:01 ng Vital Signs Vital Signs - 24 hr 06/09/24 18:08 06/09/24 19:59 06/09/24 19:59 Temperature 36.6 C 36.3 C L Pulse Rate 111 H 102 H 105 H Respiratory Rate 16 12 Blood Pressure 133/85 143/101 H Pulse Oximetry 100 100 Oxygen Delivery Oxygen Flow Rate 06/09/24 20:00 06/09/24 20:05 06/09/24 21:25 Temperature Pulse Rate 143 H Respiratory Rate Blood Pressure Pulse Oximetry 100 100 Oxygen Delivery Room Air Room Air Oxygen Flow Rate 06/09/24 21:30 06/09/24 21:30 06/09/24 21:30 Temperature 36.7 C 36.7 C Pulse Rate 149 H 149 H 136 H Respiratory Rate 12 12 Blood Pressure 149/108 H 149/108 H Pulse Oximetry 100 100 Oxygen Delivery Oxygen Flow Rate 06/09/24 21:56 06/09/24 23:01 06/09/24 23:31 Temperature 36.7 C Pulse Rate 141 H 135 H 135 H Respiratory Rate 12 15 Blood Pressure 115/90 115/89 Pulse Oximetry Oxygen Delivery Oxygen Flow Rate 06/10/24 00:21 06/10/24 02:30 06/10/24 03:04 Temperature Pulse Rate 90 84 76 Respiratory Rate 19 13 Blood Pressure 137/98 H 118/69 Pulse Oximetry 100 99 Oxygen Delivery Oxygen Flow Rate 06/10/24 04:10 06/10/24 05:34 06/10/24 07:38 Temperature 36.9 C 36.7 C Pulse Rate 130 H 88 Respiratory Rate 16 20 Blood Pressure 132/92 H 122/74 Pulse Oximetry 100 100 Oxygen Delivery Nasal Cannula Oxygen Flow Rate 4 06/10/24 08:00 06/10/24 08:00 06/10/24 08:20 Temperature Pulse Rate 78 Respiratory Rate Blood Pressure Pulse Oximetry 100 100 Oxygen Delivery Nasal Cannula Nasal Cannula Oxygen Flow Rate 4 4 06/10/24 10:00 06/10/24 11:40 06/10/24 12:00 Temperature 36.9 C Pulse Rate 86 83 Respiratory Rate 20 Blood Pressure 137/83 Pulse Oximetry 100 100 Oxygen Delivery Nasal Cannula Oxygen Flow Rate 4 06/10/24 12:00 Temperature Pulse Rate 96 Respiratory Rate Blood Pressure Pulse Oximetry Oxygen Delivery Oxygen Flow Rate Results Labs and Meds 06/10/24 07:32 06/10/24 07:32 Lab results: Cardiac Enzymes 06/09/24 06/09/24 06/09/24 Range/Units 19:15 20:49 23:58 AST 28 (14-36) U/L Troponin I < 0.012 < 0.012 (0.000-0.034) ng/mL 06/10/24 Range/Units 07:32 AST (14-36) U/L Troponin I < 0.012 (0.000-0.034) ng/mL CBC 06/09/24 06/10/24 Range/Units 19:15 07:32 WBC 10.7 H 10.9 H (4.5-10.0) K/mm3 RBC 5.63 H 5.11 (4.2-5.4) M/mm3 Hgb 11.3 L 10.2 L (12.0-15.0) g/dL Hct 35.6 L 32.5 L (37.0-47.0) % Plt Count 321 287 (150-375) k/mm3 Lymph # (Auto) 0.53 L (0.9-3.2) K/mm3 Foard # (Auto) 0.1 (0.1-0.6) K/mm3 Eos # (Auto) 0.0 (0-0.3) K/mm3 Baso # (Auto) 0.0 (0.0-0.1) K/mm3 Comprehensive Metabolic Panel 06/09/24 06/10/24 Range/Units 19:15 07:32 Sodium 138 137 (137-145) mmol/L Potassium 4.4 3.8 (3.4-5.0) mmol/L Chloride 105 105 (98-107) mmol/L Carbon Dioxide 26 25 (22-30) mmol/L BUN 13 D 13 (7-17) mg/dL Creatinine 0.70 0.70 (0.7-1.0) mg/dL Glucose 109 95 (65-110) mg/dL Calcium 10.4 H 9.9 (8.4-10.2) mg/dL AST 28 (14-36) U/L ALT 23 (6-35) U/L Alkaline Phosphatase 52 (38-126) U/L Total Protein 9.0 H (6.3-8.2) g/dL Albumin 5.1 (3.5-5.1) g/dL Intake and Output 06/09/24 06/10/24 06/10/24 23:59 07:59 15:59 Intake Total 1000 1240 Output Total 200 400 Balance 1000 -200 840 Intake: IV 1000 1000 Lactated Ringers 1,000 ml @ 125 1000 1000 mls/hr IV CONT .Q8H [facility] Rx#: [id number] Oral 240 Output: Urine 200 400 Patient Weight 06/10/24 23:59 Weight 56.1 kg
[2024-06-10] MEDS: ACYCLOVIR 200 MG CAPSULE PO (17:45)
[2024-06-10] MEDS: NITROGLYCERIN SL 0.4 MG TABLET SUBLINGUAL (20:39)
[2024-06-10] MEDS: POTASSIUM CHLORIDE 10 MEQ ER TABLET PO (20:44)
[2024-06-10] MEDS: AZITHROMYCIN 250 MG TABLET PO (20:44)
[2024-06-10] MEDS: CYCLOBENZAPRINE HCL 5 MG TABLET PO (20:44)
[2024-06-10] MEDS: FLUTICASONE PROP 110 MCG INHALER 12 GM (*SP) 2 PUFF INHALATION (20:59)
[2024-06-11] VITALS (7 sets, daily range): BP systolic 112–113; BP diastolic 58–73; PULSE 68–139; RESP 15–20; TEMP 36.4–37; O2SAT 99–100
[2024-06-11] MEDS: MORPHINE SULFATE (*CRX) 2 MG/ML INJ IV PUSH ×2 (04:05→10:08)
[2024-06-11] MEDS: LACTATED RINGERS 1,000 ML 125 ML IV CONT (04:06)
[2024-06-11] MEDS: CYCLOBENZAPRINE HCL 5 MG TABLET PO (04:07)
[2024-06-11 04:54] LABS: Alanine Aminotransferase 22 U/L (6-35); Albumin Level 4.5 g/dL (3.5-5.1); Alkaline Phosphatase 42 U/L (38-126); Anion Gap 4 mmol/L (4-12); Aspartate Amino Transferase 26 U/L (14-36); Bilirubin,Total 0.8 mg/dL (0.2-1.3); Blood Urea Nitrogen 11 mg/dL (7-17); CRP < 0.5 mg/dL (<1.0); Calcium 9.9 mg/dL (8.4-10.2); Carbon Dioxide 29 mmol/L (22-30); Chloride 105 mmol/L (98-107); Estimated CRCL calculation 72 ml/min; Estimated Glomerular Filt Rate > 60; Glucose 88 mg/dL (65-110); Phosphorus 3.6 mg/dL (2.5-4.5); Potassium 3.8 mmol/L (3.4-5.0); Sodium 138 mmol/L (137-145)
[2024-06-11 05:00] LABS: NT Pro B Type Natriuretic Pept 317 pg/mL (19.9-100)
[2024-06-11] MEDS: PROPAFENONE HCL 225 MG PO (08:36)
[2024-06-11] MEDS: AZITHROMYCIN 250 MG TABLET PO (08:37)
[2024-06-11] MEDS: ASPIRIN 81 MG ENTERIC TABLET PO (08:37)
[2024-06-11] MEDS: ACYCLOVIR 200 MG CAPSULE PO (08:37)
[2024-06-11] MEDS: FLUTICASONE PROP 110 MCG INHALER 12 GM (*SP) 2 PUFF INHALATION (08:43)
--- NOTE | 2024-06-11 09:38 | PM.DS ---
DS: Admitting Diagnosis Discharge Date 06/11/2024 Admitting Diagnosis Chest pain Aflutter DS: Discharge Diagnosis Discharge Diagnosis (1) Atrial flutter with rapid ventricular response: Code(s): I48.92 - Unspecified atrial flutter Status: Acute (2) Dizziness: Code(s): R42 - Dizziness and giddiness Status: Acute DS: Summary Hospital Course Reason for hospitalization: Copied from [facility] 06/10: 38-year-old female with past medical history significant for POTS, a flutter, AFib, ablation. Patient presents to the emergency room after having syncopal episode. Patient has been having a persistent cough for the last 2 weeks nonproductive, denies any fevers rigors or chills, has been using [id number] cough medicine patient presented to the urgent care where she was prescribed Z-Prem and prednisone for presumptive pneumonia. Patient has had poor appetite as well. Patient started having episodes of palpitations and chest pain, lightheadedness. Preliminary workup has been essentially nonrevealing a CT angiogram of the chest ruled out acute pulmonary embolism. In emergency room patient was found to have A. fib, A. flutter. Patient has been admitted for further evaluation management and treatment. Hospital Course: Trudi Maloney was admitted for treatment of Chest pain: In the setting of elevated heart rates, up to 180's at time. Also likley 2/2 cough. Continued nitroglycerin prn, flexeril prn Atrial flutter with rapid ventricular response: Takes propafanone 325mg BID. Only have 225mg tabs on formulary so patient brought in home medication. --Cardiology consulted, recommended beta blockers but patient declined. She reported hypotension with beta blockers that required midodrine and generally felt unwell after taking them. --OK to discharge per discussion with cardiology. Patient should follow up with her EP physician for discussion of ablation. Previous ablation was complicated by a clot per patient. Discussed options for transfer if she had continued symptoms but patient was not interested in transfer and wished to discharge home, symptoms had improved. Dizziness: Positional dizziness, in the setting of aflutter. Also recent possibly viral illness. Tachycardic with activity. Discussed increasing fludrocortisone to 0.2mg but patient declined. --Orthostatic vital signs --meclizine prn Cough: Cough, unspecified Tessalon perles prn Trialed flovent with improvement Avoiding albuterol 2/2 tachycardia Stopped oral steroids Recently started azithromycin, QTc 421, stable Viral panel was sent, negative for flu/covid. Others results pending at discharge Status at Discharge Cognitive/behavioral status at discharge: A&Ox4 Time Spent with Patient Time attestation: Total time spent providing and/or coordinating discharge services: Exam Narrative: General - Awake and alert. No acute distress Eyes - PERRLA, EOM intact ENT - No thrush, No erythema Neck - No noticeable or palpable swelling Lymph Nodes - No lymphadenopathy Cardiovascular - Tachycardic, regular no m/r/g, no JVD Lungs: Clear to auscultation, No wheezing, use of accessory muscles, no crackles or wheezes. Skin - Skin warm and dry, no wounds or rashes Abdomen - Normal bowel sounds, abdomen soft and nontender Extremities - No edema, cyanosis or clubbing Musculoskeletal - 5/5 strength, normal range of motion, no swollen or erythematous joints. Neurological ? Alert and oriented x 3, CN 2-12 grossly intact. Psych: Normal mood and affect DS: Data Data Completed and Pending Labs on day of discharge: Labs from last 24 hours 06/11/24 06/10/24 04:13 15:54 Sodium 138 Potassium 3.8 Chloride 105 Carbon Dioxide 29 Anion Gap 4 BUN 11 Creatinine 0.80 Estim Creat Clear Calc 72 Estimated GFR > 60 Glucose 88 Calcium 9.9 Phosphorus 3.6 Magnesium 2.0 Total Bilirubin 0.8 AST 26 ALT 22 Alkaline Phosphatase 42 C-Reactive Protein < 0.5 NT-Pro-B Natriuret Pep 317 H Total Protein 7.0 Albumin 4.5 Nasal RSV Type A (PCR) Pending Nasal RSV Type B (PCR) Pending Chlamy pneumoniae PCR Pending Adenovirus DNA Pending Human Bocavirus (KIESHA) Pending Coronavirus Type OC43 Pending Coronavirus Type HKU1 Pending Coronavirus Type 229E Pending Coronavirus Type NL63 Pending Human Metapneumovir PCR Pending Influenza A (PCR) Pending Influenza A (H1) RNA Pending Influenza A (H3) PCR Pending M. pneumoniae DNA Pending Parainfluenza PCR Pending Parainfluenza 2 (PCR) Pending Parainfluenza 3 RNA (PCR) Pending Parainfluenza 4 (PCR) Pending Rhino/Enterovirus (KIESHA) Pending SARS-CoV-2 RNA (RT-PCR) Pending Influenza Type B (PCR) Pending [facility] [place] [facility] Comment Pending Discharge Plan Discharge Attending physician on discharge: Shanthi Block Consulting providers: Rubens Ramos Discharging Clinician: Shanthi Block Anticipated Discharge Date/Time: 06/11/24 09:32 Patient Disposition: Home, Self-Care Activity: may shower Diet: regular Discharge Instructions: Follow up with your rn community health if continued symptoms, discuss options for ablation. Patient Instructions: Antibiotic Form, A-fib (Atrial Fibrillation) (GEN), Pneumonia (GEN) Patient Language: [place] Arabian Stand Alone Forms: General Discharge Information Follow-up/Referrals: Johanne,DO Jimenez [Primary Care Provider] - Discharge Medications: New acyclovir 200 mg Capsule 200 mg PO BID Qty: 60 0RF Qvar RediHaler 80 mcg/actuation HFA aerosol breath activated 1 inh inhalation Q12H Qty: 10.6 0RF Rx Instructions: administer with spacer Continued cyclobenzaprine 5 mg tablet See Rx Instructions .ROUTE .COMPLEX Rx Instructions: Rx Liletta 20.4 mcg/24 hrs (8 yrs) 52 mg Intrauterine Device 1 device INTRAUTERINE ONCE Rx Instructions: as a single dose azithromycin 250 mg tablet See Rx Instructions .ROUTE .COMPLEX Qty: 6 0RF Rx Instructions: For 250 mg dose pack: take 500 mg today (day 1), then 250 mg for 4 days (days 2-5) propafenone [Rythmol SR] 325 mg capsule,extended release 12 hr 325 mg PO Q12H aspirin [Adult Aspirin Regimen] 81 mg tablet,delayed release (DR/EC) 81 mg PO DAILY fludrocortisone 0.1 mg tablet 0.1 mg PO DAILY nitroglycerin 0.3 mg tablet, sublingual 0.3 mg sublingual Q5M PRN (Reason: Chest Pain) Rx Instructions: do not exceed 3 doses per episode isosorbide dinitrate 5 mg Tablet 5 mg PO DAILY PRN (Reason: Angina) Rx Instructions: allow nitrate-free interval of 12-14 hrs per 24-hr period Discontinued prednisone 50 mg tablet 50 mg PO DAILY Qty: 5 0RF albuterol sulfate [Ventolin HFA] 90 mcg/actuation HFA aerosol inhaler 2 puff inhalation QID PRN (Reason: shortness of breath or wheezing) Qty: 8.5 0RF Date of admission: 06/10/24 01:06 Primary Care Provider: JohanneJimenez Admitting Provider: Neto Jasmine V. Attending physician on admission: Shanthi Block Condition: Stable Quality VTE Prophylaxis VTE prophylaxis: pharmacologic ordered Hospitalist MIPS Heart Failure (Exclusion) Patient has history of Heart Transplant or Left Ventricular Assistive Device?: No IF YES, STOP HERE Heart Failure (Qualifier) Patient has current or prior documentation of LVEF less than or equal to 40%, or mod/servere depressed LVSF?: No IF NO, STOP HERE
[2024-06-11] MEDS: DOCUSATE SODIUM 100 MG CAPSULE PO (13:00)
[2024-06-16 18:28] LABS: Adenovirus DNA Not Detected (Not Detected); Chlamydophila pneumoniae Not Detected (Not Detected); Coronavirus 229E Not Detected (Not Detected); Coronavirus HKU1 Not Detected (Not Detected); Coronavirus NL63 Not Detected (Not Detected); Coronavirus OC43 Not Detected (Not Detected); Human Metapneumovirus Not Detected (Not Detected); Human Parainfluenza Virus 1 Not Detected (Not Detected); Human Parainfluenza Virus 2 Not Detected (Not Detected); Human Parainfluenza Virus 3 Not Detected (Not Detected); Human Parainfluenza Virus 4 Not Detected (Not Detected); Human RSV B Not Detected (Not Detected); Influenza A Not Detected (Not Detected); Influenza B Not Detected (Not Detected); Mycoplasma pneumoniae Not Detected (Not Detected); Rhinovirus/Enterovirus Not Detected (Not Detected)
== END 2024-06-11 13:54 | disposition home or self-care (01) ==
LOC: ANHED 20:18 → ANHIMU 06-10 03:12
PROVIDERS: Emergency Medicine; Admitting Provider Internal Medicine; Emergency Provider Student in an Organized Health Care Education/Training Program; PCP Student in an Organized Health Care Education/Training Program; Visit Provider Nurse Practitioner Acute Care
DX: I48.92 Unspecified atrial flutter (principal); R42 Dizziness and giddiness; R07.89 Other chest pain; I25.10 Atherosclerotic heart disease of native coronary artery without angina pectoris; G90.A Postural orthostatic tachycardia syndrome [POTS]; D56.1 Beta thalassemia; J18.9 Pneumonia, unspecified organism; Z20.822 Contact with and (suspected) exposure to COVID-19; Z79.82 Long term (current) use of aspirin; Z79.51 Long term (current) use of inhaled steroids; Z86.711 Personal history of pulmonary embolism; Z98.890 Other specified postprocedural states
CPT/HCPCS: 36415; 71046; 71275; 80048; 80053; 81025; 82533; 83735; 83880; 84100; 84484; 85025; 85027; 85055; 86140; 87633; 93005; 94640; 96361; 96374; 96375; 96376; 99285; A9270; G0378; J1171; J1650; J1885; J2270; J7120; Q9967

== ENCOUNTER 2024-06-17 10:42 | Emergency (ER) | payer MEDICARE, MEDICAID, SELFPAY ==
--- NOTE | ~2024-06-17 | US_ITS ---
EXAMINATION: US venous doppler UE RT DATE: 06/17/2024 11:45 INDICATION: DVT evaluation TECHNIQUE: Cantor scale images with and without compression and Doppler images of the right upper extre mity veins were obtained. COMPARISON: None. FINDINGS: The right internal jugular vein, subclavian vein, axillary vein, brachial veins, basilic vein, radial vein, and ulnar vein are patent. There is superficial venous thrombosis of the right cephalic vein. IMPRESSION: 1. No evidence for deep venous thrombosis. 2: Superficial venous thrombosis of the cephalic vein. Reviewed, dictated and finalized at location B. CLEANER HELPER
[2024-06-17 11:00] VITALS: BP 138/90; PULSE 87; RESP 18; TEMP 36.4; O2SAT 100
[2024-06-17 11:42] VITALS: BP 116/70; PULSE 82; RESP 16; TEMP 36.8; O2SAT 100
--- NOTE | 2024-06-17 12:03 | ED_ITS ---
HPI - Extremity Injury (Upper) General Chief Complaint: Extremity Injury, Upper Stated Complaint: I think I have a blood clot in my arm Time Seen by Provider: 06/17/24 10:52 History of Present Illness HPI narrative: Patient is a 38-year-old female who presents ER with concerns for clot in her right arm. She has history of PE in the past after surgery for AFib. She is on anticoagulation. Recently hospitalized and had an IV for pneumonia. Noticed some venous distension her right hand and forearm today. No chest pain or shortness of breath. Related Data Home Medications ?Medication ?Instructions ?Recorded ?Confirmed ?Last Taken ?Type aspirin 81 mg tablet,delayed 81 mg PO DAILY 07/23/21 06/11/24 01/02/23 09:00 History release (Adult Aspirin Regimen) fludrocortisone 0.1 mg tablet 0.1 mg PO DAILY 07/23/21 06/11/24 Unknown History nitroglycerin 0.3 mg sublingual 0.3 mg sublingual Q5M PRN Chest 07/23/21 06/11/24 Unknown History tablet Pain propafenone 325 mg 325 mg PO Q12H 07/23/21 06/11/24 01/02/23 09:00 History capsule,extended release 12 hr (Rythmol SR) levonorgestrel 20.4 mcg/24 hr (up 1 device intrauterine ONCE 10/16/22 06/11/24 Unknown History to 8 yrs) 52 mg intrauterine device (Liletta) isosorbide dinitrate 5 mg tablet 5 mg PO DAILY PRN Angina 01/02/23 06/11/24 Unknown History cyclobenzaprine 5 mg tablet See Rx Instructions .Route .COMPLEX 01/14/24 06/11/24 Unknown History Allergies Allergy/AdvReac Type Severity Reaction Status Date / Time ciprofloxacin Allergy Severe HIVES/DIFFICULTY Verified 06/17/24 10:43 BREATHING nitrofurantoin Allergy Severe Anaphylactic Verified 06/17/24 10:43 Shock tramadol AdvReac Intermediate Hallucinati Verified 06/17/24 10:43 ng Review of Systems Constitutional: Constitutional: Reports no additional constitutional complaints Cardiovascular: Cardiovascular: Reports no additional cardiovascular complaints Respiratory: Respiratory: Reports no additional respiratory complaints Integumentary/Breasts: Skin/Breast: Reports system reviewed and no additional complaints, except as docu PMFSH Past Medical History Medical History Beta thalassemia POTS (postural orthostatic tachycardia syndrome) Per patient report Anemia Wrist fracture, right UTI (urinary tract infection) A-fib Pulmonary embolism (~2012) Following sheath placement for cardiac ablation. 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 She lives with her 14-year-old biological daughter and her 11-year-old adopted son. She is recently . She has a small dog. Surrogate decision maker: Bernardo Maloney (ex-) [phone]. She reports that her emergency contact in the computer is listed as her boyfriend but if it were truly a life for situation she would prefer that her make decisions for her. She would not want her father to make decisions for her as he has a face and fill packer. Her mother is . Code status: Full code Smoking status: Never smoker Alcohol intake: never Substance use: never Do You Feel Safe in your Home?: No Lack of Transportation: No Lack of Food: Never True Current Housing: I Have Housing Concerned About Future Housing: No Difficulty Paying Gas/Electric Bills: No Difficulty Paying for Meds: No Currently Unemployed: No Education: Master's Degree or Higher Difficulty w/ Childcare or Family Care: No Gender identity (if verbalized by the patient): Female Spiritual care concerns: No Exam Narrative: GENERAL: Well-appearing, well-nourished, and in no acute distress. HEAD: Normocephalic, atraumatic. ENT: Mucous membranes moist. CHEST: Clear to auscultation. No respiratory distress. HEART: Regular rate and rhythm. Normal peripheral pulses. EXTREMITIES: Normal range of motion. No edema. SKIN: Warm, dry, no rash. Bruising right forearm, no palpable cord NEURO: Alert and oriented x3. PSYCH: Normal mood and affect. Course Course Emergency Course: informed of results. Discussed treatment plan. Discharge. Vital Signs Vital signs: Vital Signs Temperature 97.6 F 06/17/24 11:00 Pulse Rate 87 06/17/24 11:00 Respiratory Rate 18 06/17/24 11:00 Blood Pressure 138/90 06/17/24 11:00 Pulse Oximetry 100 06/17/24 11:00 Oxygen Delivery Room Air 06/17/24 11:00 Temperature 98.2 F 06/17/24 11:42 Pulse Rate 82 06/17/24 11:42 Respiratory Rate 16 06/17/24 11:42 Blood Pressure 116/70 06/17/24 11:42 Pulse Oximetry 100 06/17/24 11:42 Oxygen Delivery Room Air 06/17/24 11:00 MDM - Extremity Injury (Upper) Imaging Data Radiologist's impression: ITS Impressions Venous Doppler Study 06/17/24 11:57 IMPRESSION: 1. No evidence for deep venous thrombosis. 2: Superficial venous thrombosis of the cephalic vein. Discharge Plan Discharge Clinical Impression: Superficial thrombophlebitis Patient Disposition: Home, Self-Care Condition: Stable Instructions: Superficial Thrombophlebitis (ED) Additional Instructions: Return ER if you have chest pain shortness of breath, you have worsening swelling of the arm, have additional concerns. Take scheduled anti-inflammatory medications, exercise your arm, and apply warm compresses. You may also wear a compressive sleeve. Patient Language: Sudanese Prescriptions: New naproxen 375 mg tablet 375 mg PO BID Qty: 14 0RF No Action cyclobenzaprine 5 mg tablet See Rx Instructions .ROUTE .COMPLEX Rx Instructions: Rx Liletta 20.4 mcg/24 hrs (8 yrs) 52 mg Intrauterine Device 1 device INTRAUTERINE ONCE Rx Instructions: as a single dose azithromycin 250 mg tablet See Rx Instructions .ROUTE .COMPLEX Qty: 6 0RF Rx Instructions: For 250 mg dose pack: take 500 mg today (day 1), then 250 mg for 4 days (days 2-5) propafenone [Rythmol SR] 325 mg capsule,extended release 12 hr 325 mg PO Q12H aspirin [Adult Aspirin Regimen] 81 mg tablet,delayed release (DR/EC) 81 mg PO DAILY fludrocortisone 0.1 mg tablet 0.1 mg PO DAILY nitroglycerin 0.3 mg tablet, sublingual 0.3 mg sublingual Q5M PRN (Reason: Chest Pain) Rx Instructions: do not exceed 3 doses per episode isosorbide dinitrate 5 mg Tablet 5 mg PO DAILY PRN (Reason: Angina) Rx Instructions: allow nitrate-free interval of 12-14 hrs per 24-hr period acyclovir 200 mg Capsule 200 mg PO BID Qty: 60 0RF Qvar RediHaler 80 mcg/actuation HFA aerosol breath activated 1 inh inhalation Q12H Qty: 10.6 0RF Rx Instructions: administer with spacer Follow-up/Referrals: Johanne,DO Jimenez [Primary Care Provider] - 1 Week
== END 2024-06-17 12:25 | disposition home or self-care (01) ==
PROVIDERS: Emergency Provider Emergency Medicine; PCP Student in an Organized Health Care Education/Training Program
DX: T80.1XXA Vascular complications following infusion, transfusion and therapeutic injection, initial encounter (principal); I80.8 Phlebitis and thrombophlebitis of other sites; I48.91 Unspecified atrial fibrillation; I25.119 Atherosclerotic heart disease of native coronary artery with unspecified angina pectoris; G90.A Postural orthostatic tachycardia syndrome [POTS]; Z97.5 Presence of (intrauterine) contraceptive device; Z87.440 Personal history of urinary (tract) infections; Z86.2 Personal history of diseases of the blood and blood-forming organs and certain disorders involving the immune mechanism; Z86.711 Personal history of pulmonary embolism; Z87.01 Personal history of pneumonia (recurrent); Z79.01 Long term (current) use of anticoagulants; Z79.82 Long term (current) use of aspirin; Z79.899 Other long term (current) drug therapy; Y84.8 Other medical procedures as the cause of abnormal reaction of the patient, or of later complication, without mention of misadventure at the time of the procedure
CPT/HCPCS: 93971; 99284

== ENCOUNTER 2024-08-22 10:34 | Emergency (ER) | payer MEDICARE, MEDICAID, SELFPAY ==
[2024-08-22 10:45] VITALS: BP 135/79; PULSE 76; RESP 16; TEMP 36.2; O2SAT 100
--- NOTE | 2024-08-22 11:15 | ED_ITS ---
HPI - Extremity Injury (Lower) General Chief Complaint: Extremity Injury, Lower Stated Complaint: Sinus Time Seen by Provider: 08/22/24 11:15 Source: patient, RN notes reviewed and old records reviewed Mode of arrival: ambulatory Limitations: no limitations History of Present Illness HPI Narrative: Patient presents with complaints of right knee pain that began yesterday. She reports that her dog ran into her knee cap. Says ever since then, she has had pain. There is no obvious deformity. No swelling. She does retain full range of motion and is able to bear weight, although she states both of these things increased her pain. She has been taking ibuprofen for her symptoms with minimal relief. She denies other injury and trauma. She is observed ambulating with out obvious difficulty Related Data Home Medications ?Medication ?Instructions ?Recorded ?Confirmed ?Last Taken ?Type aspirin 81 mg tablet,delayed 81 mg PO DAILY 07/23/21 06/11/24 01/02/23 09:00 History release (Adult Aspirin Regimen) fludrocortisone 0.1 mg tablet 0.1 mg PO DAILY 07/23/21 06/11/24 Unknown History nitroglycerin 0.3 mg sublingual 0.3 mg sublingual Q5M PRN Chest 07/23/21 06/11/24 Unknown History tablet Pain propafenone 325 mg 325 mg PO Q12H 07/23/21 06/11/24 01/02/23 09:00 History capsule,extended release 12 hr (Rythmol SR) levonorgestrel 20.4 mcg/24 hr (up 1 device intrauterine ONCE 10/16/22 06/11/24 Unknown History to 8 yrs) 52 mg intrauterine device (Liletta) isosorbide dinitrate 5 mg tablet 5 mg PO DAILY PRN Angina 01/02/23 06/11/24 Unknown History cyclobenzaprine 5 mg tablet See Rx Instructions .Route .COMPLEX 01/14/24 06/11/24 Unknown History Allergies Allergy/AdvReac Type Severity Reaction Status Date / Time ciprofloxacin Allergy Severe HIVES/DIFFICULTY Verified 08/22/24 11:02 BREATHING nitrofurantoin Allergy Severe Anaphylactic Verified 08/22/24 11:02 Shock tramadol AdvReac Intermediate Hallucinati Verified 08/22/24 11:02 ng Review of Systems Review of Systems: All systems reviewed & are unremarkable except as noted in HPI and below Constitutional: Constitutional: Reports no additional constitutional complaints ENT: Reports system reviewed and no additional complaints, except as documented Cardiovascular: Cardiovascular: Reports no additional cardiovascular complaints Respiratory: Respiratory: Reports no additional respiratory complaints Gastrointestinal: Gastrointestinal: Reports no additional gastrointestinal complaints Musculoskeletal: Musculoskeletal: Reports no additional musculoskeletal complaints and Reports as per HPI [facility] Past Medical History Medical History Beta thalassemia POTS (postural orthostatic tachycardia syndrome) Per patient report Anemia Wrist fracture, right UTI (urinary tract infection) A-fib Pulmonary embolism (~2012) Following sheath placement for cardiac ablation. 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 She lives with her 14-year-old biological daughter and her 11-year-old adopted son. She is recently . She has a small dog. Surrogate decision maker: Bernardo Maloney (ex-) [phone]. She reports that her emergency contact in the computer is listed as her boyfriend but if it were truly a life for situation she would prefer that her make decisions for her. She would not want her father to make decisions for her as he has a business office manager. Her mother is . Code status: Full code Smoking status: Never smoker Alcohol intake: never Substance use: never Do You Feel Safe in your Home?: No Lack of Transportation: No Lack of Food: Never True Current Housing: I Have Housing Concerned About Future Housing: No Difficulty Paying Gas/Electric Bills: No Difficulty Paying for Meds: No Currently Unemployed: No Education: Master's Degree or Higher Difficulty w/ Childcare or Family Care: No Gender identity (if verbalized by the patient): Female Spiritual care concerns: No Comments At the time of my signature, I reviewed and agree with the nursing past medical, surgical, social, and family history. There is no relevant family history pertinent to the patient complaint. Exam Const: General: cooperative, no acute distress, alert and awake Orientation/consciousness: oriented to person, oriented to place and oriented to time HENMT: Head: normal to inspection Resp: Effort & Inspection: normal respiratory effort and able to speak in complete sentences Auscultation: clear to auscultation bilaterally, no crackles, no rales, no rhonchi and no wheezes Cardio: Palpation: normal PMI Rate: regular rate Rhythm: regular rhythm Heart sounds: S1 normal heart sound present and S2 normal heart sound present Neuro: General: oriented to person, oriented to place and oriented to time Cranial nerves: Yes CN's II-XII intact bilaterally Extrem: Right lower extremity: full ROM, no joint enlargement and knee Details: tenderness Location: of the medial joint line and crepitus Location: at the patella; no swelling; no edema Psych: Appearance: grossly normal Thought process: Normal thought process present Insight: Good insight present (Psych) Judgement: Good judgement present (Psych) Course Course Level of Care: Express Care Visit Vital Signs Vital signs: Vital Signs Temperature 97.2 F L 08/22/24 10:45 Pulse Rate 76 08/22/24 10:45 Respiratory Rate 16 08/22/24 10:45 Blood Pressure 135/79 08/22/24 10:45 Pulse Oximetry 100 08/22/24 10:45 Oxygen Delivery Room Air 08/22/24 10:45 Temperature 97.2 F L 08/22/24 10:45 Pulse Rate 76 08/22/24 10:45 Respiratory Rate 16 08/22/24 10:45 Blood Pressure 135/79 08/22/24 10:45 Pulse Oximetry 100 08/22/24 10:45 Oxygen Delivery Room Air 08/22/24 10:45 Reviewed MDM - Extremity Injury (Lower) MDM Narrative Medical decision making narrative: Reassuring physical exam, some medial tenderness on palpation. No deformity. Patient advised to use rice therapy to treat symptoms, follow with primary care provider for imaging if symptoms do not subside. Discharge instructions reviewed with patient, as well as provided in writing per nursing staff. The instructions also include specific and strict return/GO TO THE ER as well as f/u information. All questions have been answered, and the patient deny any further questions with discharge and discharge plan. Some parts of this dictation were generated by voice recognition software and may contain typographical and/or grammatical inaccuracies. Differential Diagnosis Differential diagnosis: Likely other (Knee pain, derangement of the knee) Medical Records Attestation: I reviewed the patient's medical records. Discharge Plan Discharge Clinical Impression: Acute knee pain Patient Disposition: Home, Self-Care Condition: Stable Instructions: Antibiotic Form, P.R.I.C.E. Treatment (ED) Additional Instructions: Use [id number] pain relievers per package instructions to treat symptoms. Follow with primary care provider. Emergency department for new or worse symptoms Patient Language: Stateless Prescriptions: No Action cyclobenzaprine 5 mg tablet See Rx Instructions .ROUTE .COMPLEX Rx Instructions: Rx Liletta 20.4 mcg/24 hrs (8 yrs) 52 mg Intrauterine Device 1 device INTRAUTERINE ONCE Rx Instructions: as a single dose azithromycin 250 mg tablet See Rx Instructions .ROUTE .COMPLEX Qty: 6 0RF Rx Instructions: For 250 mg dose pack: take 500 mg today (day 1), then 250 mg for 4 days (days 2-5) propafenone [Rythmol SR] 325 mg capsule,extended release 12 hr 325 mg PO Q12H aspirin [Adult Aspirin Regimen] 81 mg tablet,delayed release (DR/EC) 81 mg PO DAILY fludrocortisone 0.1 mg tablet 0.1 mg PO DAILY nitroglycerin 0.3 mg tablet, sublingual 0.3 mg sublingual Q5M PRN (Reason: Chest Pain) Rx Instructions: do not exceed 3 doses per episode isosorbide dinitrate 5 mg Tablet 5 mg PO DAILY PRN (Reason: Angina) Rx Instructions: allow nitrate-free interval of 12-14 hrs per 24-hr period naproxen 375 mg tablet 375 mg PO BID Qty: 14 0RF acyclovir 200 mg Capsule 200 mg PO BID Qty: 60 0RF Qvar RediHaler 80 mcg/actuation HFA aerosol breath activated 1 inh inhalation Q12H Qty: 10.6 0RF Rx Instructions: administer with spacer Follow-up/Referrals: Johanne,DO Jimenez [Primary Care Provider] - 2 Weeks Time of Disposition: 11:31
== END 2024-08-22 11:38 | disposition home or self-care (01) ==
PROVIDERS: Emergency Provider Nurse Practitioner Family; PCP Student in an Organized Health Care Education/Training Program
DX: M25.561 Pain in right knee (principal); I25.110 Atherosclerotic heart disease of native coronary artery with unstable angina pectoris; I48.91 Unspecified atrial fibrillation; D56.1 Beta thalassemia; Z86.711 Personal history of pulmonary embolism; Z79.82 Long term (current) use of aspirin
CPT/HCPCS: 99212; G0463

== ENCOUNTER 2024-09-11 12:00 | Emergency (ER) | payer MEDICARE, MEDICAID, SELFPAY ==
[2024-09-11 12:11] VITALS: BP 136/91; PULSE 116; RESP 18; TEMP 37.4; O2SAT 100
--- NOTE | 2024-09-11 12:12 | ED_ITS ---
HPI - URI/Sore Throat General Chief Complaint: Upper Respiratory Infection Stated Complaint: Fever/SOB Time Seen by Provider: 09/11/24 12:12 Source: patient Mode of arrival: ambulatory Limitations: no limitations History of Present Illness HPI Narrative: 38-year-old female presents with complaint of cough, congestion, chest congestion, fatigue, fever, burning to throat with coughing for 4 days. taking ibuprofen to treat pain and fever. Does not like taking any cmik-ulx-yhvxfoy cough medications. Patient alert and oriented. No nausea vomiting diarrhea. All systems reviewed and negative except as noted above. Related Data Home Medications ?Medication ?Instructions ?Recorded ?Confirmed ?Last Taken ?Type aspirin 81 mg tablet,delayed 81 mg PO DAILY 07/23/21 06/11/24 01/02/23 09:00 History release (Adult Aspirin Regimen) fludrocortisone 0.1 mg tablet 0.1 mg PO DAILY 07/23/21 06/11/24 Unknown History nitroglycerin 0.3 mg sublingual 0.3 mg sublingual Q5M PRN Chest 07/23/21 06/11/24 Unknown History tablet Pain propafenone 325 mg 325 mg PO Q12H 07/23/21 06/11/24 01/02/23 09:00 History capsule,extended release 12 hr (Rythmol SR) levonorgestrel 20.4 mcg/24 hr (up 1 device intrauterine ONCE 10/16/22 06/11/24 Unknown History to 8 yrs) 52 mg intrauterine device (Liletta) isosorbide dinitrate 5 mg tablet 5 mg PO DAILY PRN Angina 01/02/23 06/11/24 Unknown History cyclobenzaprine 5 mg tablet See Rx Instructions .Route .COMPLEX 01/14/24 06/11/24 Unknown History Allergies Allergy/AdvReac Type Severity Reaction Status Date / Time ciprofloxacin Allergy Severe HIVES/DIFFICULTY Verified 09/11/24 12:08 BREATHING nitrofurantoin Allergy Severe Anaphylactic Verified 09/11/24 12:08 Shock tramadol AdvReac Intermediate Hallucinati Verified 09/11/24 12:08 ng Review of Systems Review of Systems: CONSTITUTIONAL: reports fever, chills, or sweats. EYES: Denies visual changes, redness, or discharge. ENT: Reports rhinorrhea, congestion, sore throat. Denies otalgia. CARDIOVASCULAR: Denies chest pain, palpitations, or edema. RESPIRATORY: reports cough. Denies dyspnea. GASTROINTESTINAL: Denies abdominal pain, nausea, vomiting, or diarrhea. GENITOURINARY: Denies dysuria or hematuria. SKIN: Denies rash or itching. MUSCULOSKELETAL: Denies back pain, joint pain, or myalgia. NEUROLOGIC: Denies headache, numbness, or weakness. PSYCHIATRIC: Denies anxiety or depression. All other systems reviewed are negative, except as documented in HPI. [facility] Past Medical History Medical History Beta thalassemia POTS (postural orthostatic tachycardia syndrome) Per patient report Anemia Wrist fracture, right UTI (urinary tract infection) A-fib Pulmonary embolism (~2012) Following sheath placement for cardiac ablation. 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 She lives with her 14-year-old biological daughter and her 11-year-old adopted son. She is recently . She has a small dog. Surrogate decision maker: Bernardo Maloney (ex-) [phone]. She reports that her emergency contact in the computer is listed as her boyfriend but if it were truly a life for situation she would prefer that her make decisions for her. She would not want her father to make decisions for her as he has a product lead. Her mother is . Code status: Full code Smoking status: Never smoker Alcohol intake: never Substance use: never Do You Feel Safe in your Home?: No Lack of Transportation: No Lack of Food: Never True Current Housing: I Have Housing Concerned About Future Housing: No Difficulty Paying Gas/Electric Bills: No Difficulty Paying for Meds: No Currently Unemployed: No Education: Master's Degree or Higher Difficulty w/ Childcare or Family Care: No Gender identity (if verbalized by the patient): Female Spiritual care concerns: No Comments At time of signature, agree with nursing past medical, surgical, social and family history. There is no relevant family history pertinent to the presenting complaint. Exam Narrative: GENERAL: This is a well-nourished, well-developed patient, ill-appearing but no acute distress. HEAD: normocephalic, atraumatic. EYES: PERRL. Sclera clear/white. Vision is grossly intact. EARS: External ears normal, auditory canals clear and without drainage, TMs normal without perforation. Hearing grossly intact. NOSE: External nose normal with mild congestion, clear nasal drainage THROAT: Mucous membranes moist, erythematous with postnasal drainage NECK: Neck supple, non-tender without lymphadenopathy, masses or thyromegaly. CARDIOVASCULAR: Regular rate and rhythm without murmurs, gallops, or rubs. RESPIRATORY: Clear to auscultation. Breath sounds equal bilaterally. No wheezes, rales, or rhonchi. SKIN: warm, Dry, intact with no suspicious lesions or rash, good texture and turgor. NEURO: awake, alert, and oriented to person, place and time. There were no obvious focal neurologic abnormalities. EXTREMITIES: No joint tenderness, effusion, or edema noted. Course Course Level of Care: Express Care Visit Vital Signs Vital signs: Vital Signs Temperature 37.4 C 09/11/24 12:11 Pulse Rate 116 H 09/11/24 12:11 Respiratory Rate 18 09/11/24 12:11 Blood Pressure 136/91 H 09/11/24 12:11 Pulse Oximetry 100 09/11/24 12:11 Oxygen Delivery Room Air 09/11/24 12:11 Temperature 37.4 C 09/11/24 12:11 Pulse Rate 116 H 09/11/24 12:11 Respiratory Rate 18 09/11/24 12:11 Blood Pressure 136/91 H 09/11/24 12:11 Pulse Oximetry 100 09/11/24 12:11 Oxygen Delivery Room Air 09/11/24 12:11 reviewed MDM - URI/Sore Throat MDM Narrative Medical decision making narrative: mother positive for influenza A. Lungs clear to auscultation. Alert, nontoxic. Recommend treatment with xzec-hsl-ghqyjlj medications. Please be advised this is a medical document. It is intended for vfhy-eb-vzns communication. It is written in medical language and may contain unfamiliar abbreviations or verbiage. Medical documents are intended to carry relevant information, facts as evident, and the clinical opinion of the practitioner at the time of the encounter. This report may have been done utilizing a voice recognition system. Attempts have been made to correct errors. However, there may be uncorrected grammatical, spelling, and recognition errors present. The file time of this note does not necessarily represent the time of service. Differential Diagnosis Differential diagnosis: Likely upper respiratory infection, sinusitis, viral infection and influenza Discharge Plan Discharge Clinical Impression: Influenza A Patient Disposition: Home, Self-Care Condition: Stable Instructions: Influenza (ED) Additional Instructions: you were positive for influenza today. Influenza is a virus and symptoms may last 10-14 days. Take Tylenol or ibuprofen every 6-8 hours as needed for pain and fever. Drink at least 64 oz of water a day. Place cool mist humidifier in bedroom where you sleep. Follow-up with your doctor if symptoms are not improving. If you have chest pain or shortness of breath go to the ER. Patient Language: Australian Prescriptions: New benzonatate 200 mg capsule 200 mg PO TID PRN (Reason: cough) Qty: 20 0RF No Action cyclobenzaprine 5 mg tablet See Rx Instructions .ROUTE .COMPLEX Rx Instructions: Rx Liletta 20.4 mcg/24 hrs (8 yrs) 52 mg Intrauterine Device 1 device INTRAUTERINE ONCE Rx Instructions: as a single dose propafenone [Rythmol SR] 325 mg capsule,extended release 12 hr 325 mg PO Q12H aspirin [Adult Aspirin Regimen] 81 mg tablet,delayed release (DR/EC) 81 mg PO DAILY fludrocortisone 0.1 mg tablet 0.1 mg PO DAILY nitroglycerin 0.3 mg tablet, sublingual 0.3 mg sublingual Q5M PRN (Reason: Chest Pain) Rx Instructions: do not exceed 3 doses per episode isosorbide dinitrate 5 mg Tablet 5 mg PO DAILY PRN (Reason: Angina) Rx Instructions: allow nitrate-free interval of 12-14 hrs per 24-hr period acyclovir 200 mg Capsule 200 mg PO BID Qty: 60 0RF Qvar RediHaler 80 mcg/actuation HFA aerosol breath activated 1 inh inhalation Q12H Qty: 10.6 0RF Rx Instructions: administer with spacer Follow-up/Referrals: Johanne,DO Jimenez [Primary Care Provider] - Time of Disposition: 13:01
[2024-09-11 12:45] LABS: EDCOVIDSCREEN Negative (Negative); EDINFLUASCREEN Positive (Negative); EDINFLUBSCREEN Negative (Negative)
== END 2024-09-11 13:10 | disposition home or self-care (01) ==
PROVIDERS: Emergency Provider Nurse Practitioner Family; PCP Student in an Organized Health Care Education/Training Program
DX: J10.1 Influenza due to other identified influenza virus with other respiratory manifestations (principal); Z20.822 Contact with and (suspected) exposure to COVID-19; I48.91 Unspecified atrial fibrillation; I25.10 Atherosclerotic heart disease of native coronary artery without angina pectoris; D56.1 Beta thalassemia; G90.A Postural orthostatic tachycardia syndrome [POTS]
CPT/HCPCS: 87426; 87804; 99213; G0463

== ENCOUNTER 2024-09-14 10:12 | Emergency (ER) | payer MEDICARE, MEDICAID, SELFPAY ==
--- NOTE | ~2024-09-14 | XR_ITS ---
Clinical Indication: Cough PA and lateral views of the chest: Comparison: 06/09/2024 Findings: The lungs are clear, without evidence of focal consolidation or pleural effusion. Cardiome diastinal silhouette is within normal limits. Bones and soft tissues are unremarkable. Impression: Normal chest. Reviewed, dictated and finalized at location . Impression: Normal chest.
--- NOTE | ~2024-09-14 | CT_ITS ---
EXAMINATION: CTA chest PE protocol DATE: 09/14/2024 16:08 INDICATION: Chest pain and shortness of breath TECHNIQUE: Computed tomography (CT) pulmonary angiogram of the chest was performed with 100 mL Omnipa que-350 intravenous contrast. Additional 3D reconstructions utilizing coronal maximum intensity proje ction (MIP) were performed. Automated exposure control and iterative reconstruction technique were em ployed. The dose-length product was 140.06 mGy-cm. COMPARISON: None FINDINGS: Diagnostic quality study demonstrating no pulmonary embolism. There is diffuse bronchial wall thicken ing suggestive of bronchitis or reactive airway disease/asthma with some mucous plugging in the bronc hi in the basilar segments of the right lower lobe. Minimal dependent atelectasis in the bilateral lo wer lobes. No pneumonia, pulmonary edema, pleural effusion or pneumothorax. Heart size is normal. No pericardial effusion. Thoracic aorta is normal in caliber with no dissection. No pathologically enlar ged thoracic lymphadenopathy. Bones are unremarkable. IMPRESSION: 1. No pulmonary embolism. 2. Mild bronchial wall thickening which could be seen with bronchitis or reactive airway disease/asth ma and with mucous plugging in some of the bronchi in the basilar right lower lobe. Reviewed, dictated and finalized at location A. IMPRESSION: 1. No pulmonary embolism. 2. Mild bronchial wall thickening which could be seen with bronchitis or reacti ve airway disease/asthma and with mucous plugging in some of the bronchi in the basilar right lower lobe.
[2024-09-14 10:16] VITALS: BP 129/91; PULSE 91; RESP 20; TEMP 36.2; O2SAT 100
--- NOTE | 2024-09-14 10:17 | ECG_ITS ---
Test Date: 2024-09-14 10:22:22 Measurements Intervals [place] Rate: 91 P: 82 NM: 124 QRS: 45 QRSD: 73 T: -51 QT: 360 QTc: 443 Interpretive Statements SINUS RHYTHM NONSPECIFIC ST & T-WAVE ABNORMALITY ABNORMAL ECG Electronically Signed On 09-14-2024 12:53:07 CDT by Rubens Ramos M.D.
--- NOTE | 2024-09-14 10:31 | ECG_ITS ---
Test Date: 2024-09-14 10:25:36 Measurements Intervals [place] Rate: 146 P: 0 TN: 0 QRS: 44 QRSD: 89 T: 251 QT: 300 QTc: 469 Interpretive Statements SUPRAVENTRICULAR TACHYCARDIA NONSPECIFIC ST & T-WAVE ABNORMALITY ABNORMAL ECG Electronically Signed On 09-14-2024 12:53:28 CDT by Rubens Ramos M.D.
[2024-09-14 10:51] LABS: Basophils Percent Auto 0.2 % (0.2-1.2); Hematocrit 32.6 % (37.0-47.0); Hemoglobin 10.2 g/dL (12.0-15.0); Immature Granulocyte Absolute 0.01 K/mm3 (0.00-0.031); Immature Granulocyte Percent A 0.2 % (0-0.5); Immature Platelet Fraction Pct 3.4 % (0.9-11.2); Lymphocytes Absolute Auto 1.39 K/mm3 (0.9-3.2); Lymphocytes Percent Auto 33.4 % (18.3-44.2); Mean Corpuscular HGB Conc 31.3 g/dl (32-36); Mean Corpuscular Hemoglobin 19.5 pg (26-34); Mean Corpuscular Volume 62.2 fl (80-100); Monocytes Absolute Auto 0.3 K/mm3 (0.1-0.6); Monocytes Percent Auto 8.2 % (2.6-8.5); Neutrophils Absolute Auto 2.4 K/mm3 (1.3-6.7); Platelet Count Result 193 k/mm3 (150-375); Red Blood Count 5.24 M/mm3 (4.2-5.4); Red Cell Distribution Width 14.9 % (11.5-14.5); White Blood Count 4.2 K/mm3 (4.5-10.0)
[2024-09-14 11:02] LABS: Alanine Aminotransferase 22 U/L (6-35); Albumin Level 4.9 g/dL (3.5-5.1); Alkaline Phosphatase 46 U/L (38-126); Anion Gap 11 mmol/L (4-12); Aspartate Amino Transferase 26 U/L (14-36); Bilirubin,Total 0.4 mg/dL (0.2-1.3); Blood Urea Nitrogen 9 mg/dL (7-17); Calcium 9.5 mg/dL (8.4-10.2); Carbon Dioxide 23 mmol/L (22-30); Chloride 106 mmol/L (98-107); Estimated CRCL calculation 76 ml/min; Estimated Glomerular Filt Rate > 60; Glucose 95 mg/dL (65-110); Lipase 155 U/L (23-300); Potassium 3.5 mmol/L (3.4-5.0); Sodium 140 mmol/L (137-145)
[2024-09-14 11:06] LABS: INR 0.9; Prothrombin Time 12.9 Seconds (11.1-14.7)
[2024-09-14 11:14] LABS: Troponin I < 0.012 ng/mL (0.000-0.034)
[2024-09-14 11:17] LABS: Anisocytosis 1+; Platelet Estimate Adequate (Adequate)
[2024-09-14 11:18] LABS: Hypochromasia 1+; Ovalocytes 1+; Schistocytes None Seen
[2024-09-14 11:26] LABS: Influenza A QL RT-PCR Positive (Negative); Influenza B QL RT-PCR Negative (Negative); RSV RNA, RT-PCR Negative (Negative); SARS-CoV-2 RNA PCR Negative (Negative)
--- OUTSIDE RECORDS SUMMARY | 2024-09-14 11:35 | XMS_ITS | Encounter Summary ---
Author Organization [facility] Address [address] [facility] [address] [place] [address] Phone Care Team Providers Care [employer] Name Role Phone Salomón Mitchell MD Primary Care Provider [phone] Salomón Mitchell MD Unavailable [phone] Adan Fafran MD Primary Care Provider [phone] Jimenez Whiting DO Primary Care Provide r Encounter Details Date Type Department Care Team (Late st Contact Info) Description 04/02/2018 Ophth Exam [facility] [address] [place] [address] [address] [place] [id number] Purvi Parham MD [address] [place] [address] Social History Tobacco Use Types Packs/Day Years Used Date Smoking Tobacco: Never Smokeless Tobacco: Never Comments No Sex and Gender Information Value Date Recorded Sex Assigned at Not on file Legal Sex Female 8:40 AM [employer]PERVIS[employer] Gender Identity Not on file Sexual Orientation Not on file documented as of this encounter Plan of Treatment Not on file documented as of this encounter Visit Diagnoses Not on filedocumented in this encounter Eye Exam Visual Acuity Right eye Left eye Near sc 20/20 -1 20/20 Tonometry (Tonopen, 8:18 PM) Right eye Left eye Pressure 22 22 While squeezing Pupils Pupils Dark Light Shape React APD Right eye PERRL 5 3 Round Brisk None Left eye PERRL 5 3 Round Brisk None Visual Berrios Right eye Left eye Full Full Inconsistent visual field- pt at one time has left nasal restriction and then has left temporal restriction. Extraocular Movement Right eye Left eye Full, Ortho Full, Ortho Limited by pt cooperation Neuro/Psych Oriented x3: Yes Mood/Affect: Normal Dilation Both eyes: 1.0% Mydriacyl, 2 .5% Phenylephrine @ 8:18 PM External Exam Right eye Left eye External Normal Normal Slit Lamp Exam Right eye Left eye Lids/Lashes Normal Normal Conjunctiva/Sclera White and quiet White and zaid et Cornea Clear Clear Anterior Chamber Deep and quiet Deep and quiet Iris Round and reactive Round and alexandro ctive Lens Clear Clear Vitreous Normal Normal Fundus Exam Right eye Left eye Disc Normal, no edema, no pallor Norm al, no edema, no pallor C/D Ratio 0.25 0.25 Macula Normal, flat attached Normal, fl at attached Vessels Normal Normal Periphery Normal Normal Care Teams [employer] Relationship Specialty Start Date End Date Salomón Mitchell MD PCP - General 01/07/17 09/16/20 Adan Farfan MD PCP - General Family Medicine 09/17/20 02/12/21 Jimenez Whiting DO [address] [place] [id number] PCP - General 02/13/21 Salomón Mitchell MD 01/07/17 09/16/20 documented as of this encounter
--- OUTSIDE RECORDS SUMMARY | 2024-09-14 11:35 | XMS_ITS | Clinical Summary ---
Author Organization [facility] Address [address] [place] [address] Care Team Providers Care Mail Processing Associate Name Role Phone Jimenez Whiting Primary Care Provide r Allergies Active Allergy Reactions Criticality Noted Date Comments Ciprofloxacin Other (See comments),Hives,Fatigue ,Shortness of breath,Rash High Reaction: HIVES;, Fluconazole Unknown 09/01/2009 Gabapentin Hives Medium 11/13/2021 Nitrofurantoin Anaphylaxis High Nitrofurantoin Monohyd/M-Cryst Hives Medium 09/03/2016 Tramadol Hallucinations Medium 09/16/2023 Medications aspirin 325 mg tablet Take 1 tablet (325 mg total) by mouth daily Active cyclobenzaprine (FLEXERIL) 5 mg tablet Take 1 tablet (5 mg total) by mouth daily as needed 03/12/2018 Active phenazopyridine (PYRIDIUM) 200 mg tablet daily as needed 08/09/2018 Active fludrocortisone 0.1 mg tablet Take 1 tablet (0.1 mg total) by mouth daily 90 tablet 1 10/26/2020 Active isosorbide dinitrate (ISORDIL) 10 mg tablet Take 0.5 tablets (5 mg total) by mouth daily 45 tablet 3 03/13/2021 Active naproxen (NAPROSYN) 500 mg tablet Take 500 mg by mouth 12/10/2021 Active ibuprofen (ADVIL,MOTRIN) 400 mg tablet TAKE 2 TABLETS TWICE A DAY 30 tablet 44 07/01/2022 Active valACYclovir (VALTREX) 500 mg tablet Take 2 tablets (1,000 mg total) by mouth daily 08/04/2022 Active nitroglycerin (NITROSTAT) 0.[address] 1 tablet (0.4 mg total) under the tongue every 5 (five) minutes as needed for chest pain 100 tablet 06/07/2024 Active propafenone SR (RYTHMOL SR) 325 mg 12 hr capsule TAKE 1 CAPSULE TWICE A DAY 180 capsule 3 06/20/2024 Active Active Problems Problem Noted Date Diagnosed Date Acute respiratory failure with hypoxia 2 Migraine with aura 02/08/2021 Cervicalgia 01/10/2021 Occipital neuralgia of left side 07/15/2019 Vestibular migraine 10/26/2018 Assessment & Plan (10/26/2018 4:44 PM CDT): We discussed diet modification. If she is not improved symptomatically in the next 6 weeks, we may consider switching her to nortriptyline. Vertigo 09/28/2018 Benign positional vertigo 07/09/2018 Aura, Jacksonian 07/09/2018 Binocular visual disturbance 04/27/2018 Assessment & Plan (04/27/2018 10:27 AM CDT): Some symptoms c/w ophthalmic migraines, but separate symptoms of amaurosis fugax as well as what sounds like visual loss from postural hypotension. Patient has had normal CTA of head and neck, MRI/MRA of brain this month. May be useful to get updated carotid duplex US. Follows with cardiology and neurology Call if any worsening of symptoms or new visual changes, otherwise okay to f/u annually. SRx offered to patient, will probably prefer SV distance even though she benefits from add power. Essential hypertension 04/09/2018 Pure hypercholesterolemia 04/09/2018 Anxiety disorder 04/09/2018 Depression 04/09/2018 Thalassemia minor 04/09/2018 Migraine without aura and wi thout status migrainosus, not intractable 04/09/2018 Inappropriate sinus tachycardia 03/18/2018 Vasovagal syncope 08/31/2012 Paroxysmal atrial fibrillation 11/13/2011 Overview (10/28/2018): Inpatient PVI in 10/2011 in the setting of highly symptomatic persistent AF, resistant to several cardioversions and several antiarrhythmic medications. Now managed with low-dose propafenone. Assessment & Plan (11/10/2019 12:19 PM CDT): Has an apple watch to track symptoms and heart rhythms/rates. Her AF burden seems very small. She uses propafenone 1-2 times a day. Assessment & Plan (10/28/2018 10:06 AM CDT): Discussed options for rhythm control, including redo PVI or altered dose propafenone, or different medication. At this point, she is relatively pleased with her past 6 months of arrhythmia burden. She tells me that she feels better with QD propafenone (instead of BID); I support this for her. Cardiac syndrome X 11/13/2011 Palpitations 11/13/2011 Resolved Problems Problem Noted Date Diagnosed Date Resolved Date Partial symptomatic epilepsy with complex partial seizures, intractable, without status epilepticus 04/09/2018 07/09/2018 Surgical History Surgery Date Site/Laterality Comments CARDIAC ELECTROPHYSIOLOGY MAPPING AND ABLATION CARDIAC SURGERY Medical History Medical History Date Comments Atrial fibrillation (HCC) Pulmonary embolism (HCC) Heart disease Sinusitis Anemia Dizziness Headache Family History Medical History Relation Name Comments Arrhythmia Father Tachycardia - ( Added by TW Conv)/Tachycardia - (Added by TW Conv) Heart disease Father Hypertension Father Migraines Father Diabetes Mother Heart disease Other Relation Name Status Comments Father Mother Other Social History Tobacco Use Types Packs/Day Years Used Date Smoking Tobacco: Never Smokeless Tobacco: Never Tobacco Cessation:Counseling Given: Not Answered Alcohol Use Standard Drinks/Week Comments No 0 (1 standard drink = 0.6 oz pur e alcohol) AUDIT-C Answer Date Recorded Q1: How often do you have a drink containing alc ohol? Never 01/10/2021 Average Number of Drinks Not on file 021 Q3: How often do you have si x or more drinks on one occasion? 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 Gender Identity Not on file Sexual Orientation Not on file Obstetrics History Last Filed Vital Signs Vital Sign Reading Time Taken Comments Blood Pressure 116/79 01/13/2024 9:57 AM CDT Pulse 93 01/13/2024 9:57 AM CDT Temperature 36.9 C (98.4 F) 11/11/2021 12:35 PM CDT Respiratory Rate 18 11/11/2021 12:35 PM CDT Oxygen Saturation 99% 01/13/2024 9:57 AM CDT Inhaled Oxygen Concentration - - Weight 56.7 kg (125 lb) 01/13/2024 9:57 AM CDT Height 170.2 cm (5' 7 ) 01/13/2024 9:57 AM CDT Body Mass Index 19.58 01/13/2024 9:57 AM CDT Plan of Treatment Health Maintenance Due Date Last Done Comments Breast Cancer Screening-Mammogram 1983 Cervical Cancer Screening 1983 Depression Screening 1983 Hepatitis C Screening 1983 DTaP/Tdap/Td Vaccine (1 - Tdap) 12/26/1994 Varicella Vaccines (1 of 2 - 13+ 2-dose series) 12/26/1996 Hepatitis B Screening 12/26/2001 Regular Well Visit/Exam 18-64 12/26/2001 Pneumococcal vaccine <65 (1 of 2 - PCV) 12/26/2002 Covid-19 Vaccine (3 - 2023-2 5 season) 2024 06/20/2021, 05/21/2021 Influenza Vaccine (#1) 2024 HPV Vaccines Aged Out No longer eligi ble based on patient's age to complete this topic Goals Goal Patient Goal Type Associated Problems Recent Progress Patient-Stated? Author CCM Chronic Pain Care Plan Chronic Care Management No Kacie Murillo, RN Note: Problem: Chronic Pain Goals: 1. Minimize further functional decline 2. Maximize quality of life 3. Control pain Strategies: - Activity/exercise program recommendation - Conservative stepwise pain medicine strategy with multi-disciplinary approach - Recommend healthy lifestyle strategies and compensatory methods [place] [address] MEDICARE [facility] [place] [address] MEDICARE [facility] CHOICE PLUS [employer] MEDICARE [facility] Address: [address] [address] [place] [address] [place] [address] Advance Directives For more information, please contact: [phone] * Full Code (Latest Code Status on File) Date Activated Date Inactivated Comments 11/11/2021 12:44 AM 11/11/2021 8:47 PM Care Teams Mail Processing Associate Relationship Specialty Start Date End Date Jimenez Whiting DO [address] [place] [id number] PCP - General 02/13/21
--- OUTSIDE RECORDS SUMMARY | 2024-09-14 11:35 | XMS_ITS | Referral Summary ---
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 Author CCM Chronic Pain Care Plan Chronic Care Management Kacie Dempsey, RN Note: Problem: Chronic Pain Goals: 1. Minimize further functional decline 2. Maximize quality of life 3. Control pain Strategies: - Activity/exercise program recommendation - Conservative stepwise pain medicine strategy with multi-disciplinary approach - Recommend healthy lifestyle strategies and compensatory methods as needed Insurance MEDICARE [facility] MEDICARE [facility] CHOICE PLUS [facility] [address] [place] [address] Advance Directives For more information, please contact: [phone] * Full Code (Latest Code Status on File) Date Activated Date Inactivated Comments 11/11/2021 12:44 AM 11/11/2021 8:47 PM Care Teams Crop Scout Relationship Specialty Start Date End Date Jimenez Whiting DO [address] [place] [id number] PCP - General 02/13/21
--- OUTSIDE RECORDS SUMMARY | 2024-09-14 11:36 | XMS_ITS | Encounter Summary ---
Author Organization [facility] Address [address] [place] [address] Care Team Providers Care Launch Leader Name Role Phone Jimenez Whiting Diandra JENNINGS Primary Care Provider + Encounter Details Date Type Department Care Team (Late st Contact Info) Description 09/10/2022 Monkey [employer] Sign Message Enc [facility] Family & Internal Medicine [address] [address] [employer], [facility] Provider Lab results Social History Tobacco Use Types Packs/Day Years Used Date Smoking Tobacco: Never Smokeless Tobacco: Never Alcohol Use Standard Drinks/Week Comments Yes 0 (1 standard drink = 0.6 oz pur e alcohol) 1 glass of wine per month AUDIT-C Answer Date Recorded Q1: How often do you have a drink containing alc ohol? Never 10/26/2020 Average Number of Drinks Not on file 021 Frequency of Binge Drinking Not on file 09/29 PHQ-2 Answer Date Recorded Patient Health Questionnaire-2 Score 0 07/09/2022 Comments No Sex and Gender Information Value Date Recorded Sex Assigned at Female 07/20/2024 12:07 PM SHED BOSS Legal Sex Female 9:32 AM CDT Gender Identity Female 07/20/2024 12:07 PM SHED BOSS Sexual Orientation Not on file COVID-19 Exposure Response Date Recorded In the last 10 days, have yo u been in contact with someone who was confirmed or suspected to have Coronavirus/COVID-19? No / Unsure 09/05/2022 9:04 AM SHED BOSS documented as of this encounter Plan of Treatment Not on file documented as of this encounter Visit Diagnoses Not on filedocumented in this encounter Care Teams Launch Leader Relationship Specialty Start Date End Date Jimenez Whiting DO [address] [place] [id number] PCP - General FAMILY PRACTICE 10/26/20 documented as of this encounter
--- OUTSIDE RECORDS SUMMARY | 2024-09-14 11:36 | XMS_ITS | Clinical Summary ---
Author Organization [facility] Address [address] [place] [address] Care Team Providers Care Vocal Performer Name Role Phone Leonarda Sher MD Primary Care Provider [phone] Source Comments [facility],non-owned Affiliates and Associated Physician Practices is amultiple site organization consisting of ambulatory clinics and hospital sitesin [place], [place], [place] and [place]. This disclosure is being madepursuant to the Care Everywhere program and may not contain all information available regarding this patient. Last updated 18.[facility] Allergies Active Allergy Reactions Criticality Noted Date Comments Fluconazole Unknown 09/01/2009 Social History Tobacco Use Types Packs/Day Years Used Date Smoking Tobacco: Never Assessed Sex and Gender Information Value Date Recorded Sex Assigned at Not on file Gender Identity Not on file Sexual Orientation Not on file Plan of Treatment Health Maintenance Due Date Last Done Comments LIPID TESTING 1983 MAMMOGRAM 1983 MEDICARE AWV 12 MONTHS 1983 PAP SMEAR 1983 HIV SCREENING 12/26/1998 HEPATITIS C SCREENING 12/22/2001 DTAP/TDAP/TD VACCINES (1 - Tdap) 12/26/2002 HEPATITIS B VACCINE (1 of 3 - 19+ 3-dose series) 12/26/2002 COVID-19 VACCINE ( - 2023-2 5 season) 2024 INFLUENZA VACCINE (#1) 2024 DEPRESSION SCREENING 06/29/2024 ZOSTER VACCINE (1 of 2) 12/26/2033 HIB VACCINE Aged Out No longer eligi ble based on patient's age to complete this topic HPV VACCINE Aged Out No longer eligi ble based on patient's age to complete this topic MENINGOCOCCAL (Group B) VACC INE SHARED DECISION-MAKING Aged Out No longer eligibl e based on patient's age to complete this topic MENINGOCOCCAL GROUPS A/C/Y/W VACCINE Aged Out No longer eligible b ased on patient's age to complete this topic PNEUMOCOCCAL VACCINE Aged Out No long er eligible based on patient's age to complete this topic Care Teams Vocal Performer Relationship Specialty Start Date End Date Leonarda Sher MD [facility] [address] [place] [address] PCP - General 08/14/21
--- OUTSIDE RECORDS SUMMARY | 2024-09-14 11:36 | XMS_ITS | Clinical Summary ---
Author Organization [facility] Address [address] [place] [address] Care Team Providers Care Club Steward Name Role Phone JohanneLakeisha Diandra JENNINGS Primary Care Provider + Allergies Active Allergy Reactions Criticality Noted Date Comments Ciprofloxacin Fatigue,Hives,Other (see comment),Rash,Shortness of Breath High 10/26/2020 Reaction: HIVES;, Other reaction(s): HIVES/DIFFICULTY BREATHING Gabapentin Hives 11/13/2021 Hydrocodone Hallucinations 03/06/2022 (intolerance) Ketorolac Dizziness High 03/04/2022 Toradol Nitrofurantoin Anaphylaxis High 09/03/2016 Other reaction(s): Anaphylactic Shock Tramadol Hallucinations Medium 01/02/2023 Medications propafenone SR 325 MG CAPSULE SR 12 HR 12 hr capsule Take 1 capsule (325 mg total) by mouth 2 (two) times a day. 1 Active aspirin 325 MG tablet Take 1 tablet (325 mg total) by mouth daily. Active fludrocortisone 0.1 MG tablet Take 1 tablet (0.1 mg total) by mouth daily. 1 Active phenazopyridine 200 MG tablet Take 1 tablet (200 mg total) by mouth 3 (three) times daily as needed for Pain. Active nitroglycerin 0.4 MG SL tabletIndication s:Microvascular angina Place 1 tablet (0.4 mg total) under the tongue every 5 (five) minutes as needed for Chest Pain. 100 tablet 1 1 Active isosorbide dinitrate 10 MG tablet Take 0.5 tablets (5 mg total) by mouth daily. 1 Active NAPROXEN 500 MG tabletIndication s:Pleuritic chest pain TAKE 1 TABLET BY MOUTH TWICE A DAY WITH MEALS 60 tablet 2 2 Active ibuprofen (MOTRIN) 400 MG tablet 3 Active fluticasone (FLOVENT HFA) 110 MCG/ACT inhalerIndicatio ns:Shortness of breath,Pneumonia due to infectious organism, unspecified laterality, unspecified part of lung Inhale 1 puff into the lungs 2 (two) times daily. 12 g 4 Active acyclovir (ZOVIRAX) 400 MG tablet Take 1 tablet (400 mg total) by mouth 2 (two) times daily. 4 Active acyclovir (ZOVIRAX) 800 MG tablet Take 1 tablet (800 mg total) by mouth 2 (two) times daily. TAKE 1 TABLET BY MOUTH TWICE A DAY FOR 5 DAYS WITH OUT BREAK 4 Active cyclobenzaprine (FLEXERIL) 5 MG tabletIndication s:Polyarthralgia TAKE 1 OR 2 TABLETS THREE TIMES A DAY NEEDED 90 tablet 3 5 Active cyclobenzaprine (FLEXERIL) 5 MG tabletIndication s:Polyarthralgia TAKE 1 OR 2 TABLETS THREE TIMES A DAY NEEDED 90 tablet 3 4 08/19/19 25 Discontinu ed(Reorder ) Active Problems Problem Noted Date Diagnosed Date Benign mole 07/09/2022 Cervicalgia 01/10/2021 Microvascular angina 10/28/2020 Inflammation of bladder 10/26/2020 Occipital neuralgia of left side 07/15/2019 Migraine with aura 10/26/2018 Overview (05/02/2021): Last Assessment & Plan: We discussed diet modification. If she is not improved symptomatically in the next 6 weeks, we may consider switching her to nortriptyline. Benign positional vertigo 07/09/2018 Binocular visual disturbance 04/27/2018 Overview (10/26/2020): Last Assessment & Plan: Some symptoms c/w ophthalmic migraines, but separate [...] benefits from add power. Essential hypertension 04/09/2018 Migraine without aura and wi thout status migrainosus, not intractable 04/09/2018 Thalassemia minor 04/09/2018 Inappropriate sinus tachycardia ([facility]) 2017 Vasovagal syncope 08/31/2012 Palpitations 11/13/2011 Paroxysmal atrial fibrillation ([facility] 11/13/2011 Overview (10/26/2020): Inpatient PVI in 10/2011 in the setting of highly symptomatic persistent AF, resistant to several cardioversions and several antiarrhythmic medications. Now managed with low-dose propafenone. Last Assessment & Plan: Has an apple watch to track symptoms and heart rhythms/rates. Her AF burden seems very small. She uses propafenone 1-2 times a day. Resolved Problems Problem Noted Date Diagnosed Date Resolved Date Vertigo 09/28/2018 07/09/2022 AuraRocio ([facility]) 07/09/2018 10/26/2020 Anxiety disorder 04/09/2018 10/26/2020 Depression 04/09/2018 10/26/2020 Pure hypercholesterolemia 04/09/2018 Encounters Date Type Department Care Team Description 08/22/2024 Scan [employer] INFO SRVCS Scanned, Doc [facility] 08/19/2024 Telephone [facility] Family & Internal Medicine [address] [phone] Lakeisha Jarvis DO Medication Request 08/03/2024 9:20 AM FOOD SAFETY TECHNICIAN Office Visit [facility] Family & Internal Medicine [address] [phone] Lakeisha Jarvis DO Pneumonia (2 week follow up. ) 08/03/2024 Travel 07/20/2024 12:00 PM FOOD SAFETY TECHNICIAN Office Visit [facility] Family & Internal [address] [phone] Lakeisha Jarvis DO Hospital Follow Up (Patient was admitted for pneumonia and d/c on 06/11/2024. The patient developed a blood clot at the IV site and was seen in ER on 06/17/2024. The patient states her cough and congestion is coming back. She has never fully improved. ) 07/20/2024 Travel 06/17/2024 Scan [employer] INFO SRVCS Scanned, Doc [facility] Ultrasound (SCAN) 06/17/2024 Telephone [facility] Family & Internal [address] [phone] Lakeisha Jarvis DO Information from Last 3 Months Immunizations Name Administration Dates Next Due PFIZER COVID-19 (ORIGINAL FO RMULATION, PURPLE CAP) mRNA, LNP-S, PF, 30 MCG/0.3 ML DOSE 06/20/2021,05/21/2021 Family History Medical History Relation Comments Ehler frank syndrome Daughter thalassemia Daughter Heart Disease Father afib MVP Father QUILES Father thalassemia Mother Relation Status Comments Daughter Alive Father Alive Mother Alive Social History Tobacco Use Types Packs/Day Years Used Date Smoking Tobacco: Never Smokeless Tobacco: Never Tobacco Cessation:Counseling Given: Not Answered Alcohol Use Standard Drinks/Week Comments Yes 0 (1 standard drink = 0.6 oz pur e alcohol) 1 glass of wine per month AUDIT-C Answer Date Recorded Q1: How often do you have a drink containing alc ohol? Never 10/26/2020 Average Number of Drinks Not on file 021 Frequency of Binge Drinking Not on file 09/29 PHQ-2 Answer Date Recorded Patient Health Questionnaire-2 Score 1 07/20/2024 Comments No Sex and Gender Information Value Date Recorded Sex Assigned at Female 07/20/2024 12:07 PM FOOD SAFETY TECHNICIAN Legal Sex Female 9:32 AM CDT Gender Identity Female 07/20/2024 12:07 PM FOOD SAFETY TECHNICIAN Sexual Orientation Not on file Last Filed Vital Signs Vital Sign Reading Time Taken Comments Blood Pressure 114/68 08/03/2024 9:26 AM FOOD SAFETY TECHNICIAN Pulse 71 08/03/2024 9:26 AM FOOD SAFETY TECHNICIAN Temperature 36.8 C (98.2 F) 08/03/2024 9:26 AM FOOD SAFETY TECHNICIAN Respiratory Rate 16 08/03/2024 9:26 AM FOOD SAFETY TECHNICIAN Oxygen Saturation 98% 08/03/2024 9:26 AM FOOD SAFETY TECHNICIAN Inhaled Oxygen Concentration - - Weight 59.1 kg (130 lb 3.2 oz) 08/03/2024 9:26 A M FOOD SAFETY TECHNICIAN Height 170.2 cm (5' 7 ) 08/03/2024 9:26 AM FOOD SAFETY TECHNICIAN Body Mass Index 20.39 08/03/2024 9:26 AM FOOD SAFETY TECHNICIAN Plan of Treatment Health Maintenance Due Date Last Done Comments ASCVD Statin 1983 Annual Physical 12/26/1986 DTaP, Tdap and Td Vaccines (1 - Tdap) 12/26/2002 Hepatitis B Vaccines (1 of 3 - 19+ 3-dose series) 12/26/2002 Cervical Cancer Screening Pap with HPV Testing (Age 30 to 64) Every 5 Years 12/26/2013 Cervical Cancer Screening Pap Smear (Age 30 to 64) Every 3 Years 04/06/2023 04/06/2020, 04/06/2020, 02/22/2019, Additional history exists Mammogram Screening 2023 Pneumococcal Vaccine: Pediatrics (0 to 5 Years) and At-Risk Patients (6 to 64 Years) (1 of 2 - PCV) 12/14/2024 Postponed from 12/26/1989 (Patient Refused) Cervical Cancer Screening with HPV 12/20/2024 Postponed from 04/06/2023 (Going to Outside Clinic) Influenza Adult (#1) 2024 Postpon ed from 03/29/2024 (Patient Refused) COVID-19 Vaccine ( season) 2025 06/20/2021, 05/21/2021 Postponed from 02/28/2024 (Future Appointment) Hepatitis C Completed 09/05/2022 PHQ-2 (Phys[facility] [place]) Completed 07/20/2024 HPV Vaccines Aged Out No longer eligi ble based on patient's age to complete this topic Meningococcal B Vaccine Aged Out No l onger eligible based on patient's age to complete this topic Meningococcal Vaccine Aged Out No sanjiv rani eligible based on patient's age to complete this topic RSV Immunizations Under 20 Months Aged Out No longer eligible based on patient's age to complete this topic Procedures Procedure Name Priority Date/Time Associated Diagnosis Comments XR CHEST PA+LAT STAT 07/20/2024 12:28 PM FOOD SAFETY TECHNICIAN Subacute cough ULTRASOUND GENERIC (SCAN ORDER) 06/17/2024 HEPATITIS C ANTIBODY Routine 09/05/2022 10:46 AM FOOD SAFETY TECHNICIAN Paroxysmal atrial fibrillation Annual physical exam Screening for endocrine, metabolic and immunity disorder Screening for lipid disorders Need for hepatitis C screening test OUTSIDE CYTOPATH CERV/VAG INTERPRET (PAP) (SCAN ORDER) 04/06/2020 from Last 3 Months or Most Recently Relevant to Health Maintenance Results * XR CHEST PA+LAT (07/20/2024 12:28 PM FOOD SAFETY TECHNICIAN) Anatomical Region Laterality Modality Chest Radiographic Lindy ging 07/20/2024 12:3 3 PM FOOD SAFETY TECHNICIAN Impressions 07/20/2024 12:34 PM FOOD SAFETY TECHNICIAN IMPRESSION: 1. No definite acute radiographic abnormalities identified in the chest. Ordered By: LAKEISHA JARVIS Interpreted By: Sebas Arriola MD, 07/20/2024 12:33 PM Narrative 07/20/2024 12:34 PM FOOD SAFETY TECHNICIAN [facility] [place] [address] Examination: Chest x-ray 2 view Exam time: 07/20/2024 12:20 PM Clinical history: Cough. Recent pneumonia. Comparison: None Technique: Frontal and lateral views of the chest were obtained. Findings: Normal heart size and pulmonary vascularity. No consolidation, pleural effusions, or definite pneumothorax. Osseous structures reveal no definite acute findings. Procedure Note Sebas Arriola MD - 07/20/2024 [facility] [place] [address] Examination: Chest x-ray 2 view Exam time: 07/20/2024 12:20 PM Clinical history: Cough. Recent pneumonia. Comparison: None Technique: Frontal and lateral views of the chest were obtained. Findings: Normal heart size and pulmonary vascularity. No consolidation,pleural effusions, or definite pneumothorax. Osseous structures reveal nodefinite acute findings. IMPRESSION: 1. No definite acute radiographic abnormalities identified in the chest. Ordered By: LAKEISHA JARVIS Interpreted By: Sebas Arriola MD, 07/20/2024 12:33 PM us Lakeisha Jarvis DO GENERAL IMAGING Final Re sult * ULTRASOUND GENERIC (SCAN ORDER) (06/17/2024) Anatomical Region Laterality Modality Other 06/17/2024 us Doc Med Group Scanned SCANNING Final Resu lt * HEPATITIS C ANTIBODY (09/05/2022 10:46 AM FOOD SAFETY TECHNICIAN) HEPATITIS C AB NON-REACTI VE NON-REACT SHER 09/06/2022 8:52 AM FOOD SAFETY TECHNICIAN [facility] Comment: ANTIBODIES TO HCV NOT DETECTED. DOES NOT EXCLUDE THE POSSIBILITY OF EXPOSURE TO HCV. 09/05/2022 10:4 6 AM FOOD SAFETY TECHNICIAN us Lakeisha Jarvis DO LABORATORY Final Re sult [facility] [address] [place] [address], [place] [phone] [id number] * OUTSIDE CYTOPATH CERV/VAG INTERPRET (PAP) (04/06/2020) 04/06/2020 Narrative 04/06/2020 Ordered by an unspecified provider. us Documents Scanned SCANNING Final Result from Last 3 Months or Most Recently Relevant to Health Maintenance Insurance MEDICARE MEDICAID Care Teams Club Steward Relationship Specialty Start Date End Date Lakeisha Jarvis DO [address] [place] [phone] PCP - General FAMILY PRACTICE 10/26/20
--- OUTSIDE RECORDS SUMMARY | 2024-09-14 11:36 | XMS_ITS | Encounter Summary ---
Author Organization [facility] Address [address] [place] [address] Care Team Providers Care Control Room Supervisor Name Role Phone Jimenez Whiting DO Primary Care Provider + Encounter Details Date Type Department Care Team (Late st Contact Info) Description 01/06/2023 MyChart Message Enc [facility] Medical [facility] Family & Internal Medicine [facility] [address] [place] [phone] Jimenez Whiting DO [address] [place], [place] [id number] Wound pictures Social History Tobacco Use Types Packs/Day Years [...] Sex Assigned at Female 07/20/2024 12:07 PM EXECUTIVE STAFF ASSISTANT Legal Sex Female 9:32 AM CDT Gender Identity Female 07/20/2024 12:07 PM EXECUTIVE STAFF ASSISTANT Sexual Orientation Not on file documented as of this encounter Plan of Treatment Not on file documented as of this encounter Visit Diagnoses Not on filedocumented in this encounter Care Teams Control Room Supervisor Relationship Specialty Start Date End Date Jimenez Whiting DO [address] [place] [address] PCP - General FAMILY PRACTICE 10/26/20 documented as of this encounter
[2024-09-14 12:35] VITALS: BP 116/81; PULSE 86; RESP 20; O2SAT 100
--- NOTE | 2024-09-14 13:18 | ECG_ITS ---
Test Date: 2024-09-14 13:27:50 Measurements Intervals [place] Rate: 83 P: 75 WV: 133 QRS: 60 QRSD: 74 T: -56 QT: 358 QTc: 422 Interpretive Statements SINUS RHYTHM NONSPECIFIC T-WAVE ABNORMALITY Compared to ECG 09/14/2024 10:25:36 Supraventricular tachycardia no longer present T-wave abnormality still present Electronically Signed On 09-14-2024 13:50:10 CDT by Rubens Ramos M.D.
[2024-09-14 14:22] LABS: Troponin I < 0.012 ng/mL (0.000-0.034)
[2024-09-14] MEDS: KETOROLAC 15 MG/ML VIAL (*BKC) IV PUSH (15:19)
[2024-09-14 15:21] VITALS: BP 134/88; PULSE 93; RESP 20; O2SAT 100
--- NOTE | 2024-09-14 15:49 | ED.GENADULT ---
HPI - General Adult General Chief complaint: Chest Pain Stated complaint: chest pain, trouble breathing, cough Time Seen by Provider: 09/14/24 15:04 History of Present Illness HPI narrative: 38-year-old female with history of AFib presents emergency department for evaluation of persistent cough and congestion. Patient did test positive for flu on Thursday but states she has had worsening symptoms over the last few days. Related Data Home Medications ?Medication ?Instructions ?Recorded ?Confirmed ?Last Taken ?Type aspirin 81 mg tablet,delayed 81 mg PO DAILY 07/23/21 06/11/24 01/02/23 09:00 History release (Adult Aspirin Regimen) fludrocortisone 0.1 mg tablet 0.1 mg PO DAILY 07/23/21 06/11/24 Unknown History nitroglycerin 0.3 mg sublingual 0.3 mg sublingual Q5M PRN Chest 07/23/21 06/11/24 Unknown History tablet Pain propafenone 325 mg 325 mg PO Q12H 07/23/21 06/11/24 01/02/23 09:00 History capsule,extended release 12 hr (Rythmol SR) levonorgestrel 20.4 mcg/24 hr (up 1 device intrauterine ONCE 10/16/22 06/11/24 Unknown History to 8 yrs) 52 mg intrauterine device (Liletta) isosorbide dinitrate 5 mg tablet 5 mg PO DAILY PRN Angina 01/02/23 06/11/24 Unknown History cyclobenzaprine 5 mg tablet See Rx Instructions .Route .COMPLEX 01/14/24 06/11/24 Unknown History Allergies Allergy/AdvReac Type Severity Reaction Status Date / Time ciprofloxacin Allergy Severe HIVES/DIFFICULTY Verified 09/14/24 10:15 BREATHING nitrofurantoin Allergy Severe Anaphylactic Verified 09/14/24 10:15 Shock tramadol AdvReac Intermediate Hallucinati Verified 09/14/24 10:15 ng Review of Systems Review of Systems: All systems reviewed & are unremarkable except as noted in HPI and below PMFSH Past Medical History Medical History Beta thalassemia POTS (postural orthostatic tachycardia syndrome) Per patient report Anemia Wrist fracture, right UTI (urinary tract infection) A-fib Pulmonary embolism (~2012) Following sheath placement for cardiac ablation. 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 She lives with her 14-year-old biological daughter and her 11-year-old adopted son. She is recently . She has a small dog. Surrogate decision maker: Bernardo Maloney (ex-) [phone]. She reports that her emergency contact in the computer is listed as her boyfriend but if it were truly a life for situation she would prefer that her make decisions for her. She would not want her father to make decisions for her as he has a lifestyle director. Her mother is . Code status: Full code Smoking status: Never smoker Alcohol intake: never Substance use: never Do You Feel Safe in your Home?: No Lack of Transportation: No Lack of Food: Never True Current Housing: I Have Housing Concerned About Future Housing: No Difficulty Paying Gas/Electric Bills: No Difficulty Paying for Meds: No Currently Unemployed: No Education: Master's Degree or Higher Difficulty w/ Childcare or Family Care: No Gender identity (if verbalized by the patient): Female Spiritual care concerns: No Exam Narrative: APPEARANCE: Well appearing, no pain, no distress, well-nourished. HEAD: normocephalic, atraumatic. EYES: PERRLA/EOMI, conjunctivae clear. NOSE: Normal no drainage EARS:TMS clear with good light reflex. THROAT: Pharynx clear, no exudate. NECK: Supple. No adenopathy, no masses. RESPIRATORY: Airway patent, respirations nonlabored. Clear to auscultation bilaterally, no rales, rhonchi, wheezing. CARDIOVASCULAR: Regular rate and rhythm without murmurs rubs or gallops. ABDOMINAL: Soft, nontender, nondistended, normal bowel sounds MUSCULOSKELETAL: Moves all extremities. Strength/ROM intact, No edema, No calf tenderness. NEURO: Alert. Cranial nerves II through XII intact. Good gait. Good coordination SKIN: Warm, dry. Normal Color Course Vital Signs Vital signs: Vital Signs Temperature 97.1 F L 09/14/24 10:16 Pulse Rate 91 09/14/24 10:16 Respiratory Rate 20 09/14/24 10:16 Blood Pressure 129/91 H 09/14/24 10:16 Pulse Oximetry 100 09/14/24 10:16 Temperature 98.6 F 09/14/24 16:57 Pulse Rate 83 09/14/24 16:57 Respiratory Rate 16 09/14/24 16:57 Blood Pressure 116/76 09/14/24 16:57 Pulse Oximetry 100 09/14/24 16:57 Oxygen Delivery Room Air 09/14/24 11:17 Medical Decision Making MDM Narrative Medical decision making narrative: 38-year-old female presents emergency department for evaluation for chest pain and shortness of breath. Patient is currently afebrile with no leukocytosis hemoglobin of 10.2, this is similar to her baseline. INR 0.9. No acute abnormalities on the patient's CMP. Patient did have negative serial troponins. Patient did test positive for influenza A. Chest x-ray shows normal chest. CTA was ordered to evaluate for pulmonary embolism with her history of PE. CT was negative for pulmonary embolism. Patient will be started on albuterol, Tessalon Perles, Augmentin and doxycycline for outpatient. Patient was encouraged close follow-up with primary care physicians. All questions were addressed. Differential Diagnosis Differential Diagnosis: COVID, RSV, influenza, pulmonary embolism, pneumonia Vital Signs Vital Signs: Vital Signs Temperature 97.1 F L 09/14/24 10:16 Pulse Rate 91 09/14/24 10:16 Respiratory Rate 20 09/14/24 10:16 Blood Pressure 129/91 H 09/14/24 10:16 Pulse Oximetry 100 09/14/24 10:16 Temperature 98.6 F 09/14/24 16:57 Pulse Rate 83 09/14/24 16:57 Respiratory Rate 16 09/14/24 16:57 Blood Pressure 116/76 09/14/24 16:57 Pulse Oximetry 100 09/14/24 16:57 Oxygen Delivery Room Air 09/14/24 11:17 Lab Data Lab results reviewed: Yes I reviewed the patient's lab results. 09/14/24 10:40 09/14/24 10:40 Labs: Lab Results 09/14/24 09/14/24 09/14/24 Range/Units 10:40 13:25 15:47 WBC 4.2 L (4.5-10.0) K/mm3 RBC 5.24 (4.2-5.4) M/mm3 Hgb 10.2 L (12.0-15.0) g/dL Hct 32.6 L (37.0-47.0) % MCV 62.2 L (80-100) fl MCH 19.5 L (26-34) pg MCHC 31.3 L (32-36) g/dl RDW 14.9 H (11.5-14.5) % Plt Count 193 (150-375) k/mm3 MPV TNP Immature Gran % (Auto) 0.2 (0-0.5) % Neut % (Auto) 57.0 (45.5-73.1) % Lymph % (Auto) 33.4 (18.3-44.2) % [place] % (Auto) 8.2 (2.6-8.5) % Eos % (Auto) 1.0 (0-4.4) % Baso % (Auto) 0.2 (0.2-1.2) % Lymph # (Auto) 1.39 (0.9-3.2) K/mm3 [place] # (Auto) 0.3 (0.1-0.6) K/mm3 Eos # (Auto) 0.0 (0-0.3) K/mm3 Baso # (Auto) 0.0 (0.0-0.1) K/mm3 Abs Immat Gran (auto) 0.01 (0.00-0.031) K/mm3 Absolute Neuts (auto) 2.4 (1.3-6.7) K/mm3 Absolute Nucleated RBC 0.000 (0.0-0.012) K/mm3 Band Neutrophils % Not Reportable Nucleated RBC % 0.0 (0.0-0.2) % Platelet Estimate Adequate (Adequate) % Immature Plt Fraction 3.4 (0.9-11.2) % Hypochromasia 1+ Anisocytosis 1+ Ovalocytes 1+ Schistocytes None seen PT 12.9 (11.1-14.7) Seconds INR 0.9 APTT 28.0 (22.3-36.8) Seconds Sodium 140 (137-145) mmol/L Potassium 3.5 (3.4-5.0) mmol/L Chloride 106 (98-107) mmol/L Carbon Dioxide 23 (22-30) mmol/L Anion Gap 11 (4-12) mmol/L BUN 9 (7-17) mg/dL Creatinine 0.78 (0.7-1.0) mg/dL Estim Creat Clear Calc 76 ml/min Estimated GFR > 60 (59 - ) Glucose 95 (65-110) mg/dL Calcium 9.5 (8.4-10.2) mg/dL Total Bilirubin 0.4 (0.2-1.3) mg/dL AST 26 (14-36) U/L ALT 22 (6-35) U/L Alkaline Phosphatase 46 (38-126) U/L Troponin I < 0.012 < 0.012 (0.000-0.034) ng/mL Total Protein 8.0 (6.3-8.2) g/dL Albumin 4.9 (3.5-5.1) g/dL Lipase 155 (23-300) U/L POC Urine HCG, Qual Negative (Negative) Influenza A (RT-PCR) Positive A (Negative) Influenza B (RT-PCR) Negative (Negative) RSV (RT-PCR) Negative (Negative) SARS-CoV-2 RNA (RT-PCR) Negative (Negative) Imaging Data Radiologist's impression: Impressions Chest X-Ray 09/14/24 11:12 Impression: Normal chest. Chest CTA 09/14/24 16:08 IMPRESSION: 1. No pulmonary embolism. 2. Mild bronchial wall thickening which could be seen with bronchitis or reactive airway disease/asthma and with mucous plugging in some of the bronchi in the basilar right lower lobe. Discharge Plan Discharge Clinical Impression: Pneumonia, Influenza A Patient Disposition: Home, Self-Care Condition: Stable Instructions: Antibiotic Form, Pneumonia (ED) Additional Instructions: Antibiotic as directed until completed. Albuterol inhaler for chest tightness and shortness of breath. Tessalon Perles for cough. Have close follow-up with your primary care physician. If you have any worsening symptoms then please call or return to the emergency department. Patient Language: Kiswahili Prescriptions: New benzonatate 100 mg capsule 100 mg PO TID PRN (Reason: cough) Qty: 14 0RF albuterol sulfate 90 mcg/actuation HFA aerosol inhaler 1 puff inhalation QID Qty: 6.7 0RF amoxicillin-pot clavulanate 875-125 mg tablet 1 tablet PO Q12H 7 Days Qty: 14 0RF doxycycline monohydrate 100 mg capsule 100 mg PO BID 7 Days Qty: 14 0RF No Action cyclobenzaprine 5 mg tablet See Rx Instructions .ROUTE .COMPLEX Rx Instructions: Rx Liletta 20.4 mcg/24 hrs (8 yrs) 52 mg Intrauterine Device 1 device INTRAUTERINE ONCE Rx Instructions: as a single dose benzonatate 200 mg capsule 200 mg PO TID PRN (Reason: cough) Qty: 20 0RF propafenone [Rythmol SR] 325 mg capsule,extended release 12 hr 325 mg PO Q12H aspirin [Adult Aspirin Regimen] 81 mg tablet,delayed release (DR/EC) 81 mg PO DAILY fludrocortisone 0.1 mg tablet 0.1 mg PO DAILY nitroglycerin 0.3 mg tablet, sublingual 0.3 mg sublingual Q5M PRN (Reason: Chest Pain) Rx Instructions: do not exceed 3 doses per episode isosorbide dinitrate 5 mg Tablet 5 mg PO DAILY PRN (Reason: Angina) Rx Instructions: allow nitrate-free interval of 12-14 hrs per 24-hr period acyclovir 200 mg Capsule 200 mg PO BID Qty: 60 0RF Qvar RediHaler 80 mcg/actuation HFA aerosol breath activated 1 inh inhalation Q12H Qty: 10.6 0RF Rx Instructions: administer with spacer Follow-up/Referrals: Johanne,DO Jimenez [Primary Care Provider] -
[2024-09-14 15:50] LABS: BEDSIDEPREGUCG Negative (Negative)
--- OUTSIDE RECORDS SUMMARY | 2024-09-14 16:41 | XMS_ITS | Clinical Summary ---
Author Organization [facility] Address [address] [place] [address] Care Team Providers Care Sand Car Worker Name Role Phone Leonarda Sher MD Primary Care Provider [phone] Source Comments [facility],non-owned Affiliates and Associated Physician Practices is amultiple site organization consisting of ambulatory clinics and hospital sitesin [place], [place], [place] and [place]. This disclosure is being madepursuant to the Care Everywhere program and may not contain all information available regarding this patient. Last updated 18.[facility] Allergies Active Allergy Reactions Criticality Noted Date [...] age to complete this topic Care Teams Sand Car Worker Relationship Specialty Start Date End Date Leonarda Sher MD [facility] [address] [place] [address] PCP - General 08/14/21
--- OUTSIDE RECORDS SUMMARY | 2024-09-14 16:41 | XMS_ITS | Encounter Summary ---
Author Organization [facility] Address [address] [place] [address] Care Team Providers Care Truck Shop Supervisor Name Role Phone Jimenez Whiting DO Primary Care Provider + Encounter Details Date Type Department Care Team (Late st Contact Info) Description 01/06/2023 MyChart Message Enc [facility] Family & Internal Medicine [facility] [address] [place] [address] Jimenez Whiting DO [address] [place], [place] [phone] Wound pictures Social History Tobacco Use Types [...] Sex Assigned at Female 07/20/2024 12:07 PM PIN TICKET MACHINE OPERATOR Legal Sex Female 9:32 AM CDT Gender Identity Female 07/20/2024 12:07 PM PIN TICKET MACHINE OPERATOR Sexual Orientation Not on file documented as of this encounter Plan of Treatment Not on file documented as of this encounter Visit Diagnoses Not on filedocumented in this encounter Care Teams Truck Shop Supervisor Relationship Specialty Start Date End Date Jimenez Whiting DO [address] [place] [address] PCP - General FAMILY PRACTICE 10/26/20 documented as of this encounter
--- OUTSIDE RECORDS SUMMARY | 2024-09-14 16:41 | XMS_ITS | Encounter Summary ---
Author Organization [facility] Address [address] [place] [address] Care Team Providers Care Computer Analyst Supervisor Name Role Phone Jimenez Whiting Diandra JENNINGS Primary Care Provider + Encounter Details Date Type Department Care Team (Late st Contact Info) Description 09/10/2022 WorkSnugharMy Study Rewards Message Enc [facility] Family & Internal Medicine [address] [address] [facility], [facility] Provider Lab results Social [...] Sex Assigned at Female 07/20/2024 12:07 PM ROUGHER FOR CEMENT Legal Sex Female 9:32 AM CDT Gender Identity Female 07/20/2024 12:07 PM ROUGHER FOR CEMENT Sexual Orientation Not on file COVID-19 Exposure Response Date Recorded In the last 10 days, have yo u been in contact with someone who was confirmed or suspected to have Coronavirus/COVID-19? No / Unsure 09/05/2022 9:04 AM ROUGHER FOR CEMENT documented as of this encounter Plan of Treatment Not on file documented as of this encounter Visit Diagnoses Not on filedocumented in this encounter Care Teams Computer Analyst Supervisor Relationship Specialty Start Date End Date Jimenez Whiting DO [address] [place] [id number] PCP - General FAMILY PRACTICE 10/26/20 documented as of this encounter
--- OUTSIDE RECORDS SUMMARY | 2024-09-14 16:41 | XMS_ITS | Clinical Summary ---
Author Organization [facility] Address [address] [place] [address] Care Team Providers Care Compressor Mechanic Name Role Phone JohanneLakeisha Diandra JENNINGS Primary [...] 04/09/2018 Thalassemia minor 04/09/2018 Inappropriate sinus tachycardia ([facility]) 2017 Vasovagal syncope 08/31/2012 Palpitations 11/13/2011 Paroxysmal atrial fibrillation ([facility]) 11/13/2011 Overview (10/26/2020): Inpatient PVI in 10/2011 [...] Date Resolved Date Vertigo 09/28/2018 07/09/2022 AuraRocio ([facility]) 07/09/2018 10/26/2020 Anxiety disorder 04/09/2018 10/26/2020 Depression 04/09/2018 10/26/2020 Pure hypercholesterolemia 04/09/2018 Encounters Date Type Department Care Team Description 08/22/2024 Scan ASI System Integration INFO SRVCS Scanned, Doc Med Group 08/19/2024 Telephone [facility] Family & Internal Medicine [address] [address] Lakeisha Jarvis DO Medication Request 08/03/2024 9:20 AM RANGE FEEDER Office Visit [facility] Family & Internal Medicine [address] [address] Lakeisha Jarvis DO Pneumonia (2 week follow up. ) 08/03/2024 Travel 07/20/2024 12:00 PM RANGE FEEDER Office Visit [facility] Family & Internal [address] [address] Lakeisha Jarvis DO Hospital Follow Up (Patient was admitted for pneumonia and d/c on 06/11/2024. The patient developed a blood clot at the IV site and was seen in ER on 06/17/2024. The patient states her cough and congestion is coming back. She has never fully improved. ) 07/20/2024 Travel 06/17/2024 Scan Piqniq INFO SRVCS Scanned, Doc [facility] Ultrasound (SCAN) 06/17/2024 Telephone [facility] Family & Internal [address] [address] Lakeisha Jarvis DO Information from Last 3 [...] Sex Assigned at Female 07/20/2024 12:07 PM RANGE FEEDER Legal Sex Female 9:32 AM CDT Gender Identity Female 07/20/2024 12:07 PM RANGE FEEDER Sexual Orientation Not on file Last Filed Vital Signs Vital Sign Reading Time Taken Comments Blood Pressure 114/68 08/03/2024 9:26 AM RANGE FEEDER Pulse 71 08/03/2024 9:26 AM RANGE FEEDER Temperature 36.8 C (98.2 F) 08/03/2024 9:26 AM RANGE FEEDER Respiratory Rate 16 08/03/2024 9:26 AM RANGE FEEDER Oxygen Saturation 98% 08/03/2024 9:26 AM RANGE FEEDER Inhaled Oxygen Concentration - - Weight 59.1 kg (130 lb 3.2 oz) 08/03/2024 9:26 A M RANGE FEEDER Height 170.2 cm (5' 7 ) 08/03/2024 9:26 AM RANGE FEEDER Body Mass Index 20.39 08/03/2024 9:26 AM RANGE FEEDER Plan of Treatment Health Maintenance Due Date [...] Appointment) Hepatitis C Completed 09/05/2022 PHQ-2 (Physician [place]) Completed 07/20/2024 HPV Vaccines Aged Out No [...] XR CHEST PA+LAT STAT 07/20/2024 12:28 PM RANGE FEEDER Subacute cough ULTRASOUND GENERIC (SCAN ORDER) 06/17/2024 HEPATITIS C ANTIBODY Routine 09/05/2022 10:46 AM RANGE FEEDER Paroxysmal atrial fibrillation Annual physical exam Screening for endocrine, metabolic and immunity disorder Screening for lipid disorders Need for hepatitis C screening test OUTSIDE CYTOPATH CERV/VAG INTERPRET (PAP) (SCAN ORDER) 04/06/2020 from Last 3 Months or Most Recently Relevant to Health Maintenance Results * XR CHEST PA+LAT (07/20/2024 12:28 PM RANGE FEEDER) Anatomical Region Laterality Modality Chest Radiographic Lindy ging 07/20/2024 12:3 3 PM RANGE FEEDER Impressions 07/20/2024 12:34 PM RANGE FEEDER IMPRESSION: 1. No definite acute radiographic abnormalities identified in the chest. Ordered By: LAKEISHA JARVIS Interpreted By: Sebas Arriola MD, 07/20/2024 12:33 PM Narrative 07/20/2024 12:34 PM RANGE FEEDER [facility] [place] [address] Examination: Chest x-ray 2 view Exam time: 07/20/2024 12:20 PM Clinical history: Cough. Recent pneumonia. Comparison: None Technique: Frontal and lateral views of the chest were obtained. Findings: Normal heart size and pulmonary vascularity. No consolidation, pleural effusions, or definite pneumothorax. Osseous structures reveal no definite acute findings. Procedure Note Sebas Arriola MD - 07/20/2024 [facility] [place] [address] Examination: Chest x-ray 2 view Exam time: [...] * HEPATITIS C ANTIBODY (09/05/2022 10:46 AM RANGE FEEDER) HEPATITIS C AB NON-REACTI VE NON-REACT SHER 09/06/2022 8:52 AM RANGE FEEDER [facility] Comment: ANTIBODIES TO HCV NOT DETECTED. DOES NOT EXCLUDE THE POSSIBILITY OF EXPOSURE TO HCV. 09/05/2022 10:4 6 AM RANGE FEEDER us Lakeisha Jarvis DO LABORATORY Final Re sult [facility] [address] [place] [address], [place] [phone] [id number] * OUTSIDE CYTOPATH CERV/VAG INTERPRET (PAP) (04/06/2020) 04/06/2020 Narrative 04/06/2020 Ordered by an unspecified provider. us Documents Scanned SCANNING Final Result from Last 3 Months or Most Recently Relevant to Health Maintenance Insurance MEDICARE MEDICAID Care Teams Compressor Mechanic Relationship Specialty Start Date End Date Lakeisha Jarvis DO [address] [place] [id number] PCP - General FAMILY PRACTICE 10/26/20
--- OUTSIDE RECORDS SUMMARY | 2024-09-14 16:41 | XMS_ITS | Clinical Summary ---
Author Organization [facility] Address [address] [place] [address] Care Team Providers Care Burnisher And Bumper Name Role Phone Jimenez Whiting Primary Care [...] on file Legal Sex Female 8:40 AM PHONE TRIAGE SPECIALIST Gender Identity Not on file Sexual Orientation [...] strategies and compensatory methods [place] [address] MEDICARE [facility] [place] [address] MEDICARE [facility] CHOICE [facility]US [facility] HMO/PPO Address: [address] [address] [place] [address] [place] [address] Advance Directives For more information, please contact: [phone] * Full Code (Latest Code Status on File) Date Activated Date Inactivated Comments 11/11/2021 12:44 AM 11/11/2021 8:47 PM Care Teams Burnisher And Bumper Relationship Specialty Start Date End Date Jimenez Whiting DO [address] [place] [id number] PCP - General 02/13/21
--- OUTSIDE RECORDS SUMMARY | 2024-09-14 16:41 | XMS_ITS | Encounter Summary ---
Author Organization [facility] Address [address] [facility] [address] [place] [address] Phone Care Team Providers Care Documentation Designer Name Role Phone Salomón Mitchell MD Primary Care Provider [phone] Salomón Mitchell MD Unavailable [phone] Adan Farfan MD Primary Care Provider [phone] Jimenez Whiting DO Primary Care Provide r Encounter Details Date Type Department Care Team (Late st Contact Info) Description 04/02/2018 Ophth Exam [facility]hthalmology [address] [place] [address] [address] [place] [id number] Purvi Parham MD [address] [place] [address] Social History Tobacco Use Types Packs/Day Years Used Date Smoking Tobacco: Never Smokeless Tobacco: Never Comments No Sex and Gender Information Value Date Recorded Sex Assigned at Not on file Legal Sex Female 8:40 AM CARBON COATER MACHINE OPERATOR Gender Identity Not on file Sexual Orientation [...] Normal Normal Periphery Normal Normal Care Teams Documentation Designer Relationship Specialty Start Date End Date Salomón Mitchell MD PCP - General 01/07/17 09/16/20 Adan Farfan MD PCP - General Family Medicine 09/17/20 02/12/21 Jimenez Whiting DO [address] [place] [id number] PCP - General 02/13/21 Salomón Mitchell MD 01/07/17 09/16/20 documented as of this encounter
--- OUTSIDE RECORDS SUMMARY | 2024-09-14 16:41 | XMS_ITS | Referral Summary ---
Author Organization [facility] Address [address] [place] [address] Care Team Providers Care Environmental Conservation Professor Name Role Phone Jimenez Whiting Primary Care [...] on file Legal Sex Female 8:40 AM CD REACTOR OPERATOR HEAD Gender Identity Not on file Sexual Orientation [...] and compensatory methods as needed Insurance MEDICARE [facility] MEDICARE [facility]US [facility] H[facility]/PPO Address: [address] [address] [place] [address] [facility] [place] [address] MED[place] [address] Advance Directives For more information, please contact: [phone] * Full Code (Latest Code Status on File) Date Activated Date Inactivated Comments 11/11/2021 12:44 AM 11/11/2021 8:47 PM Care Teams Environmental Conservation Professor Relationship Specialty Start Date End Date Jimenez Whiting DO [address] [place] [address] PCP - General 02/13/21
[2024-09-14] MEDS: AMOXICILLIN/CLAVULANATE K 875-125 MG TAB 1 TABLET PO (16:51)
[2024-09-14] MEDS: DOXYCYCLINE HYCLATE 100 MG TABLET PO (16:51)
[2024-09-14 16:57] VITALS: BP 116/76; PULSE 83; RESP 16; TEMP 37; O2SAT 100
== END 2024-09-14 16:58 | disposition home or self-care (01) ==
PROVIDERS: Student in an Organized Health Care Education/Training Program; Emergency Provider Emergency Medicine; PCP Student in an Organized Health Care Education/Training Program
DX: J10.1 Influenza due to other identified influenza virus with other respiratory manifestations (principal); J18.9 Pneumonia, unspecified organism; I48.91 Unspecified atrial fibrillation; I25.119 Atherosclerotic heart disease of native coronary artery with unspecified angina pectoris; G90.A Postural orthostatic tachycardia syndrome [POTS]; I25.10 Atherosclerotic heart disease of native coronary artery without angina pectoris; D56.1 Beta thalassemia; Z97.5 Presence of (intrauterine) contraceptive device; Z87.440 Personal history of urinary (tract) infections; Z86.711 Personal history of pulmonary embolism; Z79.82 Long term (current) use of aspirin; Z79.52 Long term (current) use of systemic steroids; R94.31 Abnormal electrocardiogram [ECG] [EKG]; I47.10 Supraventricular tachycardia, unspecified
CPT/HCPCS: 36415; 71046; 71275; 80053; 81025; 83690; 84484; 85025; 85055; 85610; 85730; 87637; 93005; 96374; 99284; A9270; J1885; Q9967

== ENCOUNTER 2024-09-28 16:58 | Emergency (ER) | payer MEDICARE, MEDICAID, SELFPAY ==
[2024-09-28 17:04] VITALS: BP 108/80; PULSE 86; RESP 19; TEMP 36.6; O2SAT 100
[2024-09-28 17:16] LABS: EDUAAPPEAR Clear; EDUABILI Negative (Negative); EDUABLOOD Trace (Negative); EDUACOLOR1 Yellow; EDUAGLUCOSE Negative (Negative); EDUAKETONE Negative (Negative); EDUALEUKO 1+ (Negative); EDUANITRATE Negative (Negative); EDUAPROTEIN Negative (Negative); EDUAUROBILI 0.2
--- NOTE | 2024-09-28 17:30 | ED.FEMALEGU ---
HPI - Female Genitourinary General Chief complaint: Urogenital-Female Stated complaint: S Source: patient and RN notes reviewed Mode of arrival: ambulatory Limitations: no limitations History of Present Illness HPI Narrative: 38-year-old female presents to the [facility] complaining of urinary symptoms. Patient states her symptoms started yesterday when she noticed foul-smelling urine and suprapubic abdominal pain. She denies any pain with urination, back pain, fevers, nausea, vomiting, chills. She was recently on antibiotics for pneumonia after complications from having influenza a and she has completed those antibiotics. She does have a history of urinary tract infections. Significant past medical history includes atrial fib flutter and POTS. She denies being on blood thinners. Related Data Home Medications ?Medication ?Instructions ?Recorded ?Confirmed ?Last Taken ?Type aspirin 81 mg tablet,delayed 81 mg PO DAILY 07/23/21 06/11/24 01/02/23 09:00 History release (Adult Aspirin Regimen) fludrocortisone 0.1 mg tablet 0.1 mg PO DAILY 07/23/21 06/11/24 Unknown History nitroglycerin 0.3 mg sublingual 0.3 mg sublingual Q5M PRN Chest 07/23/21 06/11/24 Unknown History tablet Pain propafenone 325 mg 325 mg PO Q12H 07/23/21 06/11/24 01/02/23 09:00 History capsule,extended release 12 hr (Rythmol SR) levonorgestrel 20.4 mcg/24 hr (up 1 device intrauterine ONCE 10/16/22 06/11/24 Unknown History to 8 yrs) 52 mg intrauterine device (Liletta) isosorbide dinitrate 5 mg tablet 5 mg PO DAILY PRN Angina 01/02/23 06/11/24 Unknown History cyclobenzaprine 5 mg tablet See Rx Instructions .Route .COMPLEX 01/14/24 06/11/24 Unknown History Allergies Allergy/AdvReac Type Severity Reaction Status Date / Time ciprofloxacin Allergy Severe HIVES/DIFFICULTY Verified 09/14/24 10:15 BREATHING nitrofurantoin Allergy Severe Anaphylactic Verified 09/14/24 10:15 Shock tramadol AdvReac Intermediate Hallucinati Verified 09/14/24 10:15 ng Review of Systems Review of Systems: CONSTITUTIONAL: Denies fever, chills, or sweats. EYES: Denies visual changes, redness, or discharge. ENT: Denies rhinorrhea, congestion, sore throat, or otalgia. CARDIOVASCULAR: Denies chest pain, palpitations, or edema. RESPIRATORY: Denies cough or dyspnea. GASTROINTESTINAL: Denies abdominal pain, nausea, vomiting, or diarrhea. GENITOURINARY: Denies dysuria or hematuria. Positive for foul-smelling urine and suprapubic pain. SKIN: Denies rash or itching. MUSCULOSKELETAL: Denies back pain, joint pain, or myalgia. NEUROLOGIC: Denies headache, numbness, or weakness. PSYCHIATRIC: Denies anxiety or depression. All other systems reviewed are negative, except as documented in HPI. [facility] Past Medical History Medical History Beta thalassemia POTS (postural orthostatic tachycardia syndrome) Per patient report Anemia Wrist fracture, right UTI (urinary tract infection) A-fib Pulmonary embolism (~2012) Following sheath placement for cardiac ablation. 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 She lives with her 14-year-old biological daughter and her 11-year-old adopted son. She is recently . She has a small dog. Surrogate decision maker: Bernardo Maloney (ex-) [phone]. She reports that her emergency contact in the computer is listed as her boyfriend but if it were truly a life for situation she would prefer that her make decisions for her. She would not want her father to make decisions for her as he has a dental laboratory manager. Her mother is . Code status: Full code Smoking status: Never smoker Alcohol intake: never Substance use: never Do You Feel Safe in your Home?: No Lack of Transportation: No Lack of Food: Never True Current Housing: I Have Housing Concerned About Future Housing: No Difficulty Paying Gas/Electric Bills: No Difficulty Paying for Meds: No Currently Unemployed: No Education: Master's Degree or Higher Difficulty w/ Childcare or Family Care: No Gender identity (if verbalized by the patient): Female Spiritual care concerns: No Comments At the time of my signature, I reviewed and agree with the nursing past medical, surgical, social, and family history. There is no relevant family history pertinent to the patient complaint. Exam Narrative: GENERAL: This is a well-nourished, well-developed adult, in no apparent distress. They are non ill-appearing, nontoxic appearing. HEAD: normocephalic, atraumatic. EYES: Sclera clear/white. Vision is grossly intact. EARS: External ears normal, Hearing grossly intact. NOSE: External nose normal THROAT: Mucous membranes moist NECK: Neck supple CARDIOVASCULAR: Regular rate and rhythm without murmurs, gallops, or rubs. RESPIRATORY: Clear to auscultation. Breath sounds equal bilaterally. No wheezes, rales, or rhonchi. GASTROINTESTINAL: Abdomen soft, suprapubic tenderness to palpation, nondistended. Bowel sounds are active. No hepato-splenomegaly, or palpable masses. No guarding. SKIN: warm, Dry, intact with no suspicious lesions or rash, good texture and turgor. NEURO: awake, alert, and oriented to person, place and time. There were no obvious focal neurologic abnormalities. EXTREMITIES: No joint tenderness, effusion, or edema noted. BACK: Nontender without deformity. No CVA tenderness. Course Course Level of Care: Express Care Visit Vital Signs Vital signs: Vital Signs Temperature 98 F 09/28/24 17:04 Pulse Rate 86 09/28/24 17:04 Respiratory Rate 19 09/28/24 17:04 Blood Pressure 108/80 09/28/24 17:04 Pulse Oximetry 100 09/28/24 17:04 Oxygen Delivery Room Air 09/28/24 17:04 Temperature 98 F 09/28/24 17:04 Pulse Rate 86 09/28/24 17:04 Respiratory Rate 19 09/28/24 17:04 Blood Pressure 108/80 09/28/24 17:04 Pulse Oximetry 100 09/28/24 17:04 Oxygen Delivery Room Air 09/28/24 17:04 Reviewed MDM - Female Genitourinary MDM Narrative Medical decision making narrative: Symptoms are consistent with a urinary tract infection, her urine dipstick reveals leukocytes and trace blood. Patient states she is not on her period. She was recently on Augmentin and doxycycline for pneumonia complications from influenza A. Given her drug allergies will treat her with Keflex for her urinary tract infection. In the past her urine culture has grown E coli has been susceptible to this antibiotic. Will repeat urine culture and notify our if the antibiotic that is prescribed this not susceptible to the bacteria that grows. Discussed physical exam findings. Advised supportive measures and signs/symptoms to go to the ER. Pt is appropriate for outpt treatment and f/u. Differential Diagnosis Differential diagnosis: Likely urinary tract infection, cystitis and other (Renal stone, pyelonephritis) Lab Data Labs: Lab Results 09/28/24 Range/Units 17:13 POC Urine Color Yellow POC Urine Clarity Clear POC Urine pH 7.0 POC Ur Specif [place] 1.020 POC Urine Protein Negative (Negative) POC Ur Glucose (UA) Negative (Negative) POC Urine Ketones Negative (Negative) POC Urine Blood Trace (Negative) POC Urine Nitrite Negative (Negative) POC Urine Bilirubin Negative (Negative) POC Urine Urobilinogen 0.2 POC U Leukocyte Esteras 1+ (Negative) Critical Care Time Critical Care Time Critical Care Time: No Discharge Plan Discharge Clinical Impression: Urinary tract infection Qualifiers: Urinary tract infection type: site unspecified Hematuria presence: with hematuria Qualified Code(s): N39.0 - Urinary tract infection, site not specified Patient Disposition: Home, Self-Care Condition: Stable Instructions: Antibiotic Form, Urinary Tract Infection in Women (DC) Additional Instructions: Take the antibiotic as prescribed The urine will be sent off for a culture to identify what type of bacteria is causing your infection. If the culture shows that the antibiotic will not get rid of your infection, you will be notified and a new antibiotic will be called in for you. Increase water intake you will need to follow up with your PCP, call to schedule an appointment. Go to the ER for any worsening symptoms or concerns Patient Language: [place] Prescriptions: New cephalexin 500 mg capsule 500 mg PO Q6H 7 Days Qty: 28 0RF No Action cyclobenzaprine 5 mg tablet See Rx Instructions .ROUTE .COMPLEX Rx Instructions: Rx Liletta 20.4 mcg/24 hrs (8 yrs) 52 mg Intrauterine Device 1 device INTRAUTERINE ONCE Rx Instructions: as a single dose propafenone [Rythmol SR] 325 mg capsule,extended release 12 hr 325 mg PO Q12H aspirin [Adult Aspirin Regimen] 81 mg tablet,delayed release (DR/EC) 81 mg PO DAILY fludrocortisone 0.1 mg tablet 0.1 mg PO DAILY nitroglycerin 0.3 mg tablet, sublingual 0.3 mg sublingual Q5M PRN (Reason: Chest Pain) Rx Instructions: do not exceed 3 doses per episode isosorbide dinitrate 5 mg Tablet 5 mg PO DAILY PRN (Reason: Angina) Rx Instructions: allow nitrate-free interval of 12-14 hrs per 24-hr period Qvar RediHaler 80 mcg/actuation HFA aerosol breath activated 1 inh inhalation Q12H Qty: 10.6 0RF Rx Instructions: administer with spacer albuterol sulfate 90 mcg/actuation HFA aerosol inhaler 1 puff inhalation QID Qty: 6.7 0RF Follow-up/Referrals: Johanne,DO Jimenez [Primary Care Provider] - Time of Disposition: 17:33
== END 2024-09-28 17:36 | disposition home or self-care (01) ==
PROVIDERS: PCP Student in an Organized Health Care Education/Training Program
DX: N39.0 Urinary tract infection, site not specified (principal); D56.1 Beta thalassemia; G90.A Postural orthostatic tachycardia syndrome [POTS]; I48.91 Unspecified atrial fibrillation; I25.118 Atherosclerotic heart disease of native coronary artery with other forms of angina pectoris; Z86.711 Personal history of pulmonary embolism; Z79.82 Long term (current) use of aspirin
CPT/HCPCS: 81003; 87077; 87086; 87186; 99213; G0463

== ENCOUNTER 2024-10-08 13:38 | Emergency (ER) | payer MEDICARE, MEDICAID, SELFPAY ==
--- NOTE | ~2024-10-08 | XR_ITS ---
XR abdomen/kub 1V Ordering provider: Gato Padilla APRN History: . right flank pain/urinary sx r/o stone . Comparison: None. FINDINGS: BOWEL: Nonobstructive bowel gas pattern. ORGANOMEGALY: None. SIGNIFICANT PATHOLOGIC CALCIFICATIONS: None. OTHER: No free air is seen under the diaphragm. IUD is noted. IMPRESSION: NO ACUTE ABDOMINAL FINDINGS. No definite stones seen. If still suspicious noncontrast CT is advised. Reviewed, dictated and finalized at location A.
[2024-10-08 13:54] VITALS: BP 137/91; PULSE 96; RESP 19; TEMP 36.7; O2SAT 100
[2024-10-08 13:59] LABS: EDUAAPPEAR Clear; EDUABILI Negative (Negative); EDUABLOOD Negative (Negative); EDUACOLOR1 Yellow; EDUAGLUCOSE Negative (Negative); EDUAKETONE Negative (Negative); EDUALEUKO Negative (Negative); EDUANITRATE Negative (Negative); EDUAPH 5.5; EDUAPROTEIN Negative (Negative); EDUAUROBILI 0.2
--- NOTE | 2024-10-08 14:04 | ED.FEMALEGU ---
HPI - Female Genitourinary General Chief complaint: Urogenital-Female Stated complaint: UTI Time Seen by Provider: 10/08/24 14:00 Source: patient Mode of arrival: ambulatory Limitations: no limitations History of Present Illness HPI Narrative: Trudi is a 38-year-old female patient presenting to the clinic today with complaints of a possible urinary tract infection. She reports of some right flank pain, burning, frequency, urgency, and odorous urine. Just recently finished cephalexin for a UTI and did not feel as though that improved her symptoms. States she has been on a lot of antibiotics here lately as she has had pneumonia twice and has been dealing with UTI. States she had fever yesterday of 101. Also reporting nausea. Related Data Home Medications ?Medication ?Instructions ?Recorded ?Confirmed ?Last Taken ?Type aspirin 81 mg tablet,delayed 81 mg PO DAILY 07/23/21 06/11/24 01/02/23 09:00 History release (Adult Aspirin Regimen) fludrocortisone 0.1 mg tablet 0.1 mg PO DAILY 07/23/21 06/11/24 Unknown History nitroglycerin 0.3 mg sublingual 0.3 mg sublingual Q5M PRN Chest 07/23/21 06/11/24 Unknown History tablet Pain propafenone 325 mg 325 mg PO Q12H 07/23/21 06/11/24 01/02/23 09:00 History capsule,extended release 12 hr (Rythmol SR) levonorgestrel 20.4 mcg/24 hr (up 1 device intrauterine ONCE 10/16/22 06/11/24 Unknown History to 8 yrs) 52 mg intrauterine device (Liletta) isosorbide dinitrate 5 mg tablet 5 mg PO DAILY PRN Angina 01/02/23 06/11/24 Unknown History cyclobenzaprine 5 mg tablet See Rx Instructions .Route .COMPLEX 01/14/24 06/11/24 Unknown History Allergies Allergy/AdvReac Type Severity Reaction Status Date / Time ciprofloxacin Allergy Severe HIVES/DIFFICULTY Verified 10/08/24 13:41 BREATHING nitrofurantoin Allergy Severe Anaphylactic Verified 10/08/24 13:41 Shock tramadol AdvReac Intermediate Hallucinati Verified 10/08/24 13:41 ng Review of Systems Review of Systems: Pertinent positives per HPI. Patient denies any rash, headache, visual changes, dizziness, cough, shortness of breath, chest pain, palpitations, vomiting, diarrhea, constipation. [facility] Past Medical History Medical History Beta thalassemia POTS (postural orthostatic tachycardia syndrome) Per patient report Anemia Wrist fracture, right UTI (urinary tract infection) A-fib Pulmonary embolism (~2012) Following sheath placement for cardiac ablation. 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 She lives with her 14-year-old biological daughter and her 11-year-old adopted son. She is recently . She has a small dog. Surrogate decision maker: Bernardo Maloney (ex-) [phone]. She reports that her emergency contact in the computer is listed as her boyfriend but if it were truly a life for situation she would prefer that her make decisions for her. She would not want her father to make decisions for her as he has a gun perforator. Her mother is . Code status: Full code Smoking status: Never smoker Alcohol intake: never Substance use: never Do You Feel Safe in your Home?: No Lack of Transportation: No Lack of Food: Never True Current Housing: I Have Housing Concerned About Future Housing: No Difficulty Paying Gas/Electric Bills: No Difficulty Paying for Meds: No Currently Unemployed: No Education: Master's Degree or Higher Difficulty w/ Childcare or Family Care: No Gender identity (if verbalized by the patient): Female Spiritual care concerns: No Comments At the time of my signature, I reviewed and agree with the nursing past medical, surgical, social, and family history. There is no relevant family history pertinent to the patient complaint. Exam Narrative: General: Well-developed, well nourished, in no apparent distress. Head: Normocephalic, atraumatic. Cardio: Regular rate and rhythm, s1 and s2 normal, no murmur appreciated. Resp: Clear to auscultation bilaterally, no rhonchi, rales, wheezing or rubs. Abdomen: Soft, pliable, bowel sounds present in all quadrants, right lower and right mid quadrant tender to palpation, negative psoas, rovings, and obturator sign, no organomegly, right-sided CVAT tenderness. Course Course Emergency Course: Portions of this record may have been created with voice recognition software. Level of Care: Express Care Visit Vital Signs Vital signs: Vital Signs Temperature 36.7 C 10/08/24 13:54 Pulse Rate 96 10/08/24 13:54 Respiratory Rate 19 10/08/24 13:54 Blood Pressure 137/91 H 10/08/24 13:54 Pulse Oximetry 100 10/08/24 13:54 Oxygen Delivery Room Air 10/08/24 13:54 Temperature 36.7 C 10/08/24 13:54 Pulse Rate 96 10/08/24 13:54 Respiratory Rate 19 10/08/24 13:54 Blood Pressure 137/91 H 10/08/24 13:54 Pulse Oximetry 100 10/08/24 13:54 Oxygen Delivery Room Air 10/08/24 13:54 Vital signs reviewed MDM - Female Genitourinary MDM Narrative Medical decision making narrative: At the time of visit patient is resting comfortably on the exam table. Patient appears to be nontoxic. Labs: Urinalysis is negative for any sign of blood, protein, glucose, or leukocytes. Diagnostics: KUB is negative for any kidney/ureteral stones. No sign of constipation-normal bowel gas pattern Plan: Patient to the clinic today for complaints of possible UTI. Urinalysis is negative for any UTI. No blood in her urine. KUB was performed to rule out kidney stone and negative in the clinic today. Patient has some right mid and right lower abdomen discomfort with palpation however she has a negative Rovsing's, psoas, and obturator sign. No history of ovarian cyst. Denies any vaginal discharge or concern for STI. I suspect patient has UTI symptoms with right flank and right sided abdominal discomfort. Recommend going to the emergency room if her symptoms worsen. At this time I will place her on Zofran for nausea and give her some Pyridium for her UTI symptoms and send her urine for culture. Supportive measures were discussed with the patient and they voiced understanding discharge instructions and agrees to treatment plan. Return precautions reviewed Differential Diagnosis Differential diagnosis: Likely urinary tract infection, bacterial vaginosis, trichomoniasis, cervicitis, ovarian cyst, vaginitis, ruptured ovarian cyst, cystitis, dysmenorrhea and other (Appendicitis, ovarian cyst, ovarian torsion, pyelonephritis, ureterolithiasis) Lab Data Labs: Lab Results 10/08/24 Range/Units 13:56 POC Urine Color Yellow POC Urine Clarity Clear POC Urine pH 5.5 POC Ur Specif Vega 1.010 POC Urine Protein Negative (Negative) POC Ur Glucose (UA) Negative (Negative) POC Urine Ketones Negative (Negative) POC Urine Blood Negative (Negative) POC Urine Nitrite Negative (Negative) POC Urine Bilirubin Negative (Negative) POC Urine Urobilinogen 0.2 POC U Leukocyte Esteras Negative (Negative) Discharge Plan Discharge Clinical Impression: Acute right flank pain, Right sided abdominal pain, Symptoms of urinary tract infection Patient Disposition: Home Condition: Stable Instructions: Antibiotic Form, Urinary Tract Infection in Women (ED), Abdominal Pain (ED), Flank Pain (ED) Additional Instructions: Take Pyridium and Zofran as directed May take Tylenol/Motrin as needed for pain Increase fluids and stay well hydrated Wipe front to back. May use wet wipes. Avoid tub baths If sexually active- pee before and after intercourse. Wear cotton panties Avoid tight clothing up against the genitals Follow up with your PCP in 1 week if symptoms persist. Go to the emergency room if your symptoms worsen-worsening abdominal pain, worsening of flank pain, worsening of UTI symptoms, nausea vomiting, dehydration, chest pain, or shortness of breath. Patient Language: [place] Verdean Prescriptions: New phenazopyridine [Pyridium] 200 mg tablet 200 mg PO TID PRN (Reason: pain) Qty: 6 0RF ondansetron 4 mg tablet,disintegrating 4 mg PO Q6H PRN (Reason: nausea and vomiting) 3 Days Qty: 12 0RF No Action cyclobenzaprine 5 mg tablet See Rx Instructions .ROUTE .COMPLEX Rx Instructions: Rx Liletta 20.4 mcg/24 hrs (8 yrs) 52 mg Intrauterine Device 1 device INTRAUTERINE ONCE Rx Instructions: as a single dose propafenone [Rythmol SR] 325 mg capsule,extended release 12 hr 325 mg PO Q12H aspirin [Adult Aspirin Regimen] 81 mg tablet,delayed release (DR/EC) 81 mg PO DAILY fludrocortisone 0.1 mg tablet 0.1 mg PO DAILY nitroglycerin 0.3 mg tablet, sublingual 0.3 mg sublingual Q5M PRN (Reason: Chest Pain) Rx Instructions: do not exceed 3 doses per episode isosorbide dinitrate 5 mg Tablet 5 mg PO DAILY PRN (Reason: Angina) Rx Instructions: allow nitrate-free interval of 12-14 hrs per 24-hr period Qvar RediHaler 80 mcg/actuation HFA aerosol breath activated 1 inh inhalation Q12H Qty: 10.6 0RF Rx Instructions: administer with spacer albuterol sulfate 90 mcg/actuation HFA aerosol inhaler 1 puff inhalation QID Qty: 6.7 0RF Follow-up/Referrals: Johanne,DO Jimenez [Primary Care Provider] - Time of Disposition: 14:19 Quality NIHSS Nursing Documentation ED NIHSS nursing documentation: reviewed/agree
== END 2024-10-08 14:25 | disposition home or self-care (01) ==
PROVIDERS: Emergency Provider Nurse Practitioner Family; PCP Student in an Organized Health Care Education/Training Program
DX: R10.9 Unspecified abdominal pain (principal); R35.0 Frequency of micturition; R39.15 Urgency of urination; I48.91 Unspecified atrial fibrillation; I25.10 Atherosclerotic heart disease of native coronary artery without angina pectoris; Z86.711 Personal history of pulmonary embolism
CPT/HCPCS: 74018; 81003; 87086; 99213; G0463

== ENCOUNTER 2024-11-02 11:53 | Emergency (ER) | payer MEDICARE, MEDICAID, SELFPAY ==
--- NOTE | ~2024-11-02 | XR_ITS ---
EXAMINATION: XR hand RT min 3V DATE: 11/02/2024 12:13 INDICATION: Thumb pain and swelling post fall TECHNIQUE: Posteroanterior, oblique and lateral views of the right hand were obtained. COMPARISON: None. FINDINGS: Alignment is normal. No fracture. 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 Soft tissues are unremarkable. IMPRESSION: 1. No acute osseous abnormality. Reviewed, dictated and finalized at location A.
--- NOTE | 2024-11-02 11:56 | ED_ITS ---
HPI - Extremity Injury (Upper) General Chief Complaint: Extremity Injury, Upper Stated Complaint: right thumb injury after fall Time Seen by Provider: 11/02/24 11:56 Source: patient Mode of arrival: ambulatory Limitations: no limitations History of Present Illness HPI narrative: Trudi is a 38-year-old female patient presenting to the clinic today with complaints of right thumb/hand injury after falling. She reports she was walking the dog this morning and the dog pulled her and she fell with outstretched hand. Has bruising and swelling over the right 1st metacarpal/palm. Is having pain and throbbing in the right hand radiating to the wrist. Is unable to move her thumb without significant pain. Related Data Home Medications ?Medication ?Instructions ?Recorded ?Confirmed ?Last Taken ?Type aspirin 81 mg tablet,delayed 81 mg PO DAILY 07/23/21 06/11/24 01/02/23 09:00 History release (Adult Aspirin Regimen) fludrocortisone 0.1 mg tablet 0.1 mg PO DAILY 07/23/21 06/11/24 Unknown History nitroglycerin 0.3 mg sublingual 0.3 mg sublingual Q5M PRN Chest 07/23/21 06/11/24 Unknown History tablet Pain propafenone 325 mg 325 mg PO Q12H 07/23/21 06/11/24 01/02/23 09:00 History capsule,extended release 12 hr (Rythmol SR) levonorgestrel 20.4 mcg/24 hr (up 1 device intrauterine ONCE 10/16/22 06/11/24 Unknown History to 8 yrs) 52 mg intrauterine device (Liletta) isosorbide dinitrate 5 mg tablet 5 mg PO DAILY PRN Angina 01/02/23 06/11/24 Unknown History cyclobenzaprine 5 mg tablet See Rx Instructions .Route .COMPLEX 01/14/24 06/11/24 Unknown History Allergies Allergy/AdvReac Type Severity Reaction Status Date / Time ciprofloxacin Allergy Severe HIVES/DIFFICULTY Verified 11/02/24 11:57 BREATHING nitrofurantoin Allergy Severe Anaphylactic Verified 11/02/24 11:57 Shock tramadol AdvReac Intermediate Hallucinati Verified 11/02/24 11:57 ng Review of Systems Review of Systems: Pertinent positives per HPI. Patient denies any fever, chills, rash, headache, visual changes, dizziness, cough, runny nose, sore throat, shortness of breath, chest pain, palpitations, nausea, vomiting, diarrhea, constipation, abdominal pain, or any urinary issues. [facility] Past Medical History Medical History Beta thalassemia POTS (postural orthostatic tachycardia syndrome) Per patient report Anemia Wrist fracture, right UTI (urinary tract infection) A-fib Pulmonary embolism (~2012) Following sheath placement for cardiac ablation. 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 She lives with her 14-year-old biological daughter and her 11-year-old adopted son. She is recently . She has a small dog. Surrogate decision maker: Bernardo Maloney (ex-) [phone]. She reports that her emergency contact in the computer is listed as her boyfriend but if it were truly a life for situation she would prefer that her make decisions for her. She would not want her father to make decisions for her as he has a broom builder. Her mother is . Code status: Full code Smoking status: Never smoker Alcohol intake: never Substance use: never Do You Feel Safe in your Home?: No Lack of Transportation: No Lack of Food: Never True Current Housing: I Have Housing Concerned About Future Housing: No Difficulty Paying Gas/Electric Bills: No Difficulty Paying for Meds: No Currently Unemployed: No Education: Master's Degree or Higher Difficulty w/ Childcare or Family Care: No Gender identity (if verbalized by the patient): Female Spiritual care concerns: No Comments At the time of my signature, I reviewed and agree with the nursing past medical, surgical, social, and family history. There is no relevant family history pertinent to the patient complaint. Exam Narrative: General: Well-developed, well nourished, in no apparent distress Head: Normocephalic, atraumatic. Cardio: Regular rate and rhythm, s1 and s2 normal, no murmur appreciated. Resp: Clear to auscultation bilaterally, no rhonchi, rales, wheezing or rubs. Musculoskeletal: No deformity, bruising and swelling over that over the 1st metacarpal/palm, tender to palpation, pain with flexion and extension of the right thumb over the MCP joint and palm, muscle strength strong and equal, peripheral pulse strong, no edema, no cyanosis, normal gait and station Course Course Emergency Course: Portions of this record may have been created with voice recognition software. Level of Care: Express Care Visit Vital Signs Vital signs: Vital Signs Temperature 36.8 C 11/02/24 12:37 Pulse Rate 95 11/02/24 12:37 Respiratory Rate 16 11/02/24 12:37 Blood Pressure 130/91 H 11/02/24 12:37 Pulse Oximetry 100 11/02/24 12:37 Temperature 36.8 C 11/02/24 12:37 Pulse Rate 95 11/02/24 12:37 Respiratory Rate 16 11/02/24 12:37 Blood Pressure 130/91 H 11/02/24 12:37 Pulse Oximetry 100 11/02/24 12:37 Vital signs reviewed MDM - Extremity Injury (Upper) MDM Narrative Medical decision making narrative: At the time of visit patient is resting comfortably on the exam table. Patient appears to be nontoxic. Diagnostics: X-ray of the right hand was performed and was negative for any sign of fracture or malalignment. Plan: I suspect patient has right hand contusion. Supportive measures were discussed with the patient and they voiced understanding discharge instructions and agrees to treatment plan. Return precautions reviewed Differential Diagnosis Differential diagnosis: Likely sprain and strain of wrist, fracture of wrist and other (Hand fracture, hand sprain, contusion, soft tissue injury) Imaging Data Radiologist's impression: ITS Impressions Hand X-Ray 11/02/24 12:17 IMPRESSION: 1. No acute osseous abnormality. Discharge Plan Discharge Clinical Impression: Contusion of hand Qualifiers: Encounter type: initial encounter Laterality: right Qualified Code(s): S60.221A - Contusion of right hand, initial encounter Patient Disposition: Home Condition: Stable Instructions: Antibiotic Form, Contusion in Adults (ED) Additional Instructions: X-ray hand is negative for any fracture or malalignment Rest, ice, elevate, and wear gary wrap as directed Tylenol/motrin for pain as discussed. Gradually bear weight No running or sports until healed. Follow up with your PCP if symptoms persist more than 1 week. Patient Language: Honduran Prescriptions: No Action cyclobenzaprine 5 mg tablet See Rx Instructions .ROUTE .COMPLEX Rx Instructions: Rx Liletta 20.4 mcg/24 hrs (8 yrs) 52 mg Intrauterine Device 1 device INTRAUTERINE ONCE Rx Instructions: as a single dose propafenone [Rythmol SR] 325 mg capsule,extended release 12 hr 325 mg PO Q12H aspirin [Adult Aspirin Regimen] 81 mg tablet,delayed release (DR/EC) 81 mg PO DAILY fludrocortisone 0.1 mg tablet 0.1 mg PO DAILY nitroglycerin 0.3 mg tablet, sublingual 0.3 mg sublingual Q5M PRN (Reason: Chest Pain) Rx Instructions: do not exceed 3 doses per episode isosorbide dinitrate 5 mg Tablet 5 mg PO DAILY PRN (Reason: Angina) Rx Instructions: allow nitrate-free interval of 12-14 hrs per 24-hr period Qvar RediHaler 80 mcg/actuation HFA aerosol breath activated 1 inh inhalation Q12H Qty: 10.6 0RF Rx Instructions: administer with spacer albuterol sulfate 90 mcg/actuation HFA aerosol inhaler 1 puff inhalation QID Qty: 6.7 0RF Follow-up/Referrals: Johanne,DO Jimenez [Primary Care Provider] - Time of Disposition: 12:27 Quality NIHSS Nursing Documentation ED NIHSS nursing documentation: reviewed/agree
[2024-11-02 12:37] VITALS: BP 130/91; PULSE 95; RESP 16; TEMP 36.8; O2SAT 100
== END 2024-11-02 12:29 | disposition home or self-care (01) ==
PROVIDERS: Emergency Provider Nurse Practitioner Family; PCP Student in an Organized Health Care Education/Training Program
DX: S60.221A Contusion of right hand, initial encounter (principal); W19.XXXA Unspecified fall, initial encounter; Y93.K1 Activity, walking an animal; D56.1 Beta thalassemia; G90.A Postural orthostatic tachycardia syndrome [POTS]; I48.91 Unspecified atrial fibrillation; I25.119 Atherosclerotic heart disease of native coronary artery with unspecified angina pectoris; Z86.711 Personal history of pulmonary embolism; Z79.82 Long term (current) use of aspirin
CPT/HCPCS: 73130; 99213; G0463

== ENCOUNTER 2024-11-14 17:31 | Emergency (ER) | payer MEDICARE, MEDICAID, SELFPAY ==
[2024-11-14 17:43] VITALS: BP 125/80; PULSE 82; RESP 20; TEMP 36.6; O2SAT 100
--- NOTE | 2024-11-14 17:48 | ED_ITS ---
HPI - Female Genitourinary General Chief complaint: Urogenital-Female Stated complaint: urinary irritation Time Seen by Provider: 11/14/24 17:46 Source: patient, RN notes reviewed and old records reviewed Mode of arrival: ambulatory Limitations: no limitations History of Present Illness HPI Narrative: 38-year-old female presents to the [facility] with concerns for UTI. Patient reports that waking up this morning she had frequency urgency and burning. Denies abdominal pain, fevers. No CVA tenderness. Related Data Home Medications Medication Instructions Recorded Confirmed Last Taken Type aspirin 81 mg tablet,delayed 81 mg PO DAILY 07/23/21 06/11/24 01/02/23 09:00 History release (Adult Aspirin Regimen) fludrocortisone 0.1 mg tablet 0.1 mg PO DAILY 07/23/21 06/11/24 Unknown History nitroglycerin 0.3 mg sublingual 0.3 mg sublingual Q5M PRN Chest 07/23/21 06/11/24 Unknown History tablet Pain propafenone 325 mg 325 mg PO Q12H 07/23/21 06/11/24 01/02/23 09:00 History capsule,extended release 12 hr (Rythmol SR) levonorgestrel 20.4 mcg/24 hr (up 1 device intrauterine ONCE 10/16/22 06/11/24 Unknown History to 8 yrs) 52 mg intrauterine device (Liletta) isosorbide dinitrate 5 mg tablet 5 mg PO DAILY PRN Angina 01/02/23 06/11/24 Unknown History cyclobenzaprine 5 mg tablet See Rx Instructions .Route .COMPLEX 01/14/24 06/11/24 Unknown History acyclovir 400 mg tablet mg 11/14/24 Unknown History Allergies Allergy/AdvReac Type Severity Reaction Status Date / Time ciprofloxacin Allergy Severe HIVES/DIFFICULTY Verified 11/14/24 17:55 BREATHING nitrofurantoin Allergy Severe Anaphylactic Verified 11/14/24 17:55 Shock tramadol AdvReac Intermediate Hallucinati Verified 11/14/24 17:55 ng Review of Systems Review of Systems: All systems reviewed & are unremarkable except as noted in HPI and below Constitutional: Constitutional: Reports no additional constitutional complaints ENT: Reports system reviewed and no additional complaints, except as documented Cardiovascular: Cardiovascular: Reports no additional cardiovascular complaints, Denies chest pain and Denies dyspnea Respiratory: Respiratory: Reports no additional respiratory complaints, Denies chest congestion, Denies cough and Denies dyspnea Genitourinary: Genitourinary: Reports as per HPI Musculoskeletal: Musculoskeletal: Reports no additional musculoskeletal complaints Integumentary/Breasts: Skin/Breast: Reports system reviewed and no additional complaints, except as docu [facility] Past Medical History Medical History Beta thalassemia POTS (postural orthostatic tachycardia syndrome) Per patient report Anemia Wrist fracture, right UTI (urinary tract infection) A-fib Pulmonary embolism (~2012) Following sheath placement for cardiac ablation. 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 She lives with her 14-year-old biological daughter and her 11-year-old adopted son. She is recently . She has a small dog. Surrogate decision maker: Bernardo Maloney (ex-) [phone]. She reports that her emergency contact in the computer is listed as her boyfriend but if it were truly a life for situation she would prefer that her make decisions for her. She would not want her father to make decisions for her as he has a chimney construction supervisor. Her mother is . Code status: Full code Smoking status: Never smoker Alcohol intake: never Substance use: never Do You Feel Safe in your Home?: No Lack of Transportation: No Lack of Food: Never True Current Housing: I Have Housing Concerned About Future Housing: No Difficulty Paying Gas/Electric Bills: No Difficulty Paying for Meds: No Currently Unemployed: No Education: Master's Degree or Higher Difficulty w/ Childcare or Family Care: No Gender identity (if verbalized by the patient): Female Spiritual care concerns: No Comments At the time of my signature, I reviewed and agree with the nursing past medical, surgical, social, and family history. There is no relevant family history pertinent to the patient complaint. Exam Const: General: cooperative, healthy appearing, comfortable, no acute distress, well developed, alert and well nourished Nutritional Appearance: well nourished Orientation/consciousness: patient oriented x3 Limitations: no limitations HENMT: Head: normal to inspection Mouth: Yes Normal oral and palatal mucosa present, Yes lip normal, Yes tongue normal and Yes moist mucous membranes Eyes: General: appearance normal, both eyes and all related structures Alignment and Position: alignment normal Neck: Neck: normal visual inspection, full ROM, no lymphadenopathy and no meningeal signs Chest: Chest palpation & inspection: normal inspection of the chest Resp: Effort & Inspection: normal respiratory effort and able to speak in complete sentences Auscultation: clear to auscultation bilaterally, no crackles, no rales, no rhonchi and no wheezes Cardio: Rate: regular rate GI: GI Palp: No abdominal tenderness : General: Yes no CVA tenderness Skin: General skin exam: normal color and no rashes or lesions noted Neuro: General: patient oriented x3, gait normal, moves all extremities and no meningeal signs Cognition (Neuro): normal cognition Speech: normal speech Gait exam (Neuro): Normal gait present Extrem: General: normal to inspection, full ROM, capillary refill normal and normal gait Psych: Appearance: grossly normal and well kempt Mental Status: mental status grossly normal Speech and movement: Normal speech and movement present and Clear speech present Affect: normal affect Attitude: cooperative Course Course Level of Care: Express Care Visit Vital Signs Vital signs: Vital Signs Temperature 97.8 F 11/14/24 17:43 Pulse Rate 82 11/14/24 17:43 Respiratory Rate 20 11/14/24 17:43 Blood Pressure 125/80 11/14/24 17:43 Pulse Oximetry 100 11/14/24 17:43 Oxygen Delivery Room Air 11/14/24 17:43 Temperature 97.8 F 11/14/24 17:43 Pulse Rate 82 11/14/24 17:43 Respiratory Rate 20 11/14/24 17:43 Blood Pressure 125/80 11/14/24 17:43 Pulse Oximetry 100 11/14/24 17:43 Oxygen Delivery Room Air 11/14/24 17:43 Reviewed MDM - Female Genitourinary MDM Narrative Medical decision making narrative: Patient sitting comfortably in exam room. Patient is nontoxic, vitals stable. Patient presents with concerns for UTI. Positive blood, positive leukocytes in urine. Will culture but treat for UTI with Augmentin Patient appropriate for outpatient treatment with close follow-up Discharge instructions reviewed with patient, as well as provided in writing per nursing staff. The instructions also include specific and strict return/GO TO THE ER as well as f/u information. All questions have been answered, and the patient deny any further questions with discharge and discharge plan. Some parts of this dictation were generated by voice recognition software and may contain typographical and/or grammatical inaccuracies. Differential Diagnosis Differential diagnosis: Likely urinary tract infection and cystitis Lab Data Labs: Lab Results 11/14/24 Range/Units 17:45 POC Urine Color Yellow POC Urine Clarity Cloudy POC Urine pH 6.0 POC Ur Specif [place] 1.030 POC Urine Protein 1+ (Negative) POC Ur Glucose (UA) Negative (Negative) POC Urine Ketones Negative (Negative) POC Urine Blood 2+ (Negative) POC Urine Nitrite Negative (Negative) POC Urine Bilirubin Negative (Negative) POC Urine Urobilinogen 0.2 POC U Leukocyte Esteras 1+ (Negative) Reviewed Critical Care Time Critical Care Time Critical Care Time: No Discharge Plan Discharge Clinical Impression: Urinary tract infection Qualifiers: Urinary tract infection type: acute cystitis Hematuria presence: with hematuria Qualified Code(s): N30.01 - Acute cystitis with hematuria Patient Disposition: Home Condition: Stable Instructions: Urinary Tract Infection in Women (DC) Additional Instructions: Increased water intake Take Tylenol as needed for pain Take antibiotic as prescribed Today your urine dip showed a probability of a UTI. You have been prescribed an antibiotic. Your urine will be sent to our lab for a culture. If at that time a bacteria grows that is not covered by the antibiotic prescribed you will be notified. Follow-up with primary care For new or worsening symptoms go directly to the emergency room Patient Language: Macedonian Prescriptions: New amoxicillin-pot clavulanate 875-125 mg tablet 1 tablet PO Q12H Qty: 10 0RF phenazopyridine [Pyridium] 200 mg tablet 200 mg PO TID PRN (Reason: pain) Qty: 6 0RF No Action cyclobenzaprine 5 mg tablet See Rx Instructions .ROUTE .COMPLEX Rx Instructions: Rx acyclovir 400 mg tablet Liletta 20.4 mcg/24 hrs (8 yrs) 52 mg Intrauterine Device 1 device INTRAUTERINE ONCE Rx Instructions: as a single dose propafenone [Rythmol SR] 325 mg capsule,extended release 12 hr 325 mg PO Q12H aspirin [Adult Aspirin Regimen] 81 mg tablet,delayed release (DR/EC) 81 mg PO DAILY fludrocortisone 0.1 mg tablet 0.1 mg PO DAILY nitroglycerin 0.3 mg tablet, sublingual 0.3 mg sublingual Q5M PRN (Reason: Chest Pain) Rx Instructions: do not exceed 3 doses per episode isosorbide dinitrate 5 mg Tablet 5 mg PO DAILY PRN (Reason: Angina) Rx Instructions: allow nitrate-free interval of 12-14 hrs per 24-hr period Qvar RediHaler 80 mcg/actuation HFA aerosol breath activated 1 inh inhalation Q12H Qty: 10.6 0RF Rx Instructions: administer with spacer albuterol sulfate 90 mcg/actuation HFA aerosol inhaler 1 puff inhalation QID Qty: 6.7 0RF Follow-up/Referrals: Johanne,DO Jimenez [Primary Care Provider] - 1 Week ([facility] care follow up ) Stand Alone Forms: Work/School Release IP Time of Disposition: 18:00
[2024-11-14 17:52] LABS: EDUAAPPEAR Cloudy; EDUABILI Negative (Negative); EDUABLOOD 2+ (Negative); EDUACOLOR1 Yellow; EDUAGLUCOSE Negative (Negative); EDUAKETONE Negative (Negative); EDUALEUKO 1+ (Negative); EDUANITRATE Negative (Negative); EDUAPROTEIN 1+ (Negative); EDUAUROBILI 0.2
== END 2024-11-14 18:06 | disposition home or self-care (01) ==
PROVIDERS: Emergency Provider Nurse Practitioner; PCP Student in an Organized Health Care Education/Training Program
DX: N30.01 Acute cystitis with hematuria (principal); D56.1 Beta thalassemia; G90.A Postural orthostatic tachycardia syndrome [POTS]; I48.91 Unspecified atrial fibrillation; I25.118 Atherosclerotic heart disease of native coronary artery with other forms of angina pectoris; Z86.711 Personal history of pulmonary embolism; Z79.82 Long term (current) use of aspirin
CPT/HCPCS: 81003; 87086; 99213; G0463

== ENCOUNTER 2025-01-23 13:49 | Outpatient (CLI) | payer MEDICARE, MEDICAID, SELFPAY ==
--- NOTE | ~2025-01-23 | US_ITS ---
EXAMINATION: US transvaginal INDICATION: Abnormal uterine bleeding Comparison:No prior studies for comparison. TECHNIQUE: Multiple endovaginal sonographic images of the pelvis performed. FINDINGS: The uterus measures 6.8 x 3.6 x 5 cm. There is an IUD in the endometrium. The endometrial c omplex measures 3 mm. The right ovary measures 2.6 x 2.1 x 2.4 cm and the left ovary measures 2.6 x 2.1 x 1.6 cm. There ar e small follicles in each ovary. Normal doppler signal in both ovaries. There is trace free fluid in the pelvis. There are no abnormal masses seen on either side. IMPRESSION: 1. Unremarkable pelvic ultrasound. IUD present in the endometrium. Reviewed, dictated and finalized at location B.
== END 2025-01-23 13:50 | disposition home or self-care (01) ==
LOC: MICIMG 13:51
PROVIDERS: PCP Student in an Organized Health Care Education/Training Program; Visit Provider Obstetrics & Gynecology Gynecology
DX: N93.8 Other specified abnormal uterine and vaginal bleeding (principal); Z97.5 Presence of (intrauterine) contraceptive device
CPT/HCPCS: 76830